=== PATIENT | male | born 1960 | race Caucasian/White ===

== ENCOUNTER 2019-10-08 10:28 | Outpatient (CLI) | payer BC, SELFPAY ==
--- NOTE | 2019-10-08 11:00 | ECG_ITS ---
Measurements Intervals [place] Rate: 75 P: 35 FL: 198 QRS: 49 QRSD: 97 T: 30 QT: 377 QTc: 422 SINUS RHYTHM No previous ECG available for comparison Electronically Signed On 10-08-2019 17:53:19 [employer] by Park Amado M.D. [email or web address]
[2019-10-08 11:19] LABS: Basophils # 0.1 10^3/uL (0.0-0.1); Basophils % 0.9 %; Eosinophils # 0.2 10^3/uL (0.0-0.8); Eosinophils % 3.7 %; Hematocrit 43.9 % (42.0-52.0); Hemoglobin 15.1 g/dL (11.7-16.6); Lymphocytes # 1.5 10^3/uL (0.8-4.8); Lymphocytes % 28.3 %; Mean Corpuscular HGB Conc 34.4 g/dL (30.0-36.0); Mean Corpuscular Hemoglobin 31.1 pg (28.0-34.0); Mean Corpuscular Volume 90.3 fL (80-94); Mean Platelet Volume 9.2 fL (7.4-10.4); Monocytes # 0.5 10^3/uL (0.2-0.9); Monocytes % 8.6 %; Neutrophils # 3.2 10^3/uL (1.8-7.7); Neutrophils % 58.1 %; Nucleated Red Blood Cells % 0 %; Platelet Count 297 10^3/cmm (130-400); Red Blood Count 4.86 10^6/uL (4.1-5.3); Red Cell Distribution Width 12.6 % (12.1-15.1); White Blood Count 5.5 10^3/uL (4.0-10.0)
[2019-10-08 11:32] LABS: Anion Gap 18.1 (5-19); Blood Urea Nitrogen 12 mg/dL (8-23); Calcium 10.2 mg/Dl (8.8-10.2); Carbon Dioxide 25 mmol/L (22-29); Chloride 102 mmol/L (98-107); Glomerular Filtration Rate 61.6 mL/min (90-130); Glucose 95 mg/dL (74-106); Potassium 4.1 mmol/L (3.5-5.1); Sodium 141 mmol/L (136-145)
== END 2019-10-08 10:29 | disposition home or self-care (01) ==
LOC: LAB 10:31
PROVIDERS: Family Provider Plastic Surgery; Visit Provider Podiatrist Foot & Ankle Surgery
DX: Z01.812 Encounter for preprocedural laboratory examination (principal); I10 Essential (primary) hypertension
CPT/HCPCS: 36415; 80048; 85025; 93005

== ENCOUNTER 2020-10-29 10:30 | Outpatient (CLI) | payer BC, SELFPAY ==
--- NOTE | 2020-10-29 10:47 | CT_ITS ---
WS: [id number] CT ABDOMEN AND PELVIS NONCONTRAST HISTORY: GROSS HEMATURIA TECHNIQUE: Imaging performed through the abdomen and pelvis. Coronal and sagittal reformats are submi tted. All CT scans at [facility] use at least one of these dose optimization techniques: automated exposure control; mA and/or kV adjustment per patient size (includes targeted exams where d ose is matched to clinical indication); or iterative reconstruction. DLP: 1071.67 mGycm COMPARISON: None available. Lower thorax: Lung bases are clear. Small hiatal hernia. Visualized heart is normal. Liver: Low-attenuation 1.2 cm lesion LEFT lobe of the liver is likely a cyst. No bile duct dilatation . Gallbladder: Contracted gallbladder with no adjacent inflammation. Pancreas: Normal size and attenuation. Normal pancreatic duct. No pancreatitis or mass. Spleen: Normal. Adrenal glands: Normal. No mass. Right kidney: Normal size kidney with no mass or hydronephrosis. Left kidney: Normal size kidney with no mass or hydronephrosis. Aorta: Mild atherosclerosis aorta. There is no aneurysm. Scattered calcified plaques extend into the common iliac arteries. No free fluid, intraperitoneal air or significant lymphadenopathy. GI tract: Normal appendix. Mild diffuse constipation. There are moderate amount of diverticula within the distal colon with no acute inflammation. Abdominal wall: Negative. No hernia. Pelvis: Well-distended urinary bladder. Mixed density in the urinary bladder. There is a lobulated so ft tissue mass filling a large portion of the bladder. Prostate gland is also slightly enlarged and d oes encroach into the bladder. There are central prostate calcifications. No adjacent adenopathy or f luid. Osseous structures: Unremarkable. CT/CT kidney stone 09554 IMPRESSION: 1. Abnormal urinary bladder. Mixed density within the urinary bladder is sligh tly lobulated. Differential includes bladder neoplasm and mixed density from he morrhage. Recommend further evaluation of the urinary bladder. Ultrasound evalu ation may help determine mass versus hemorrhage. Cystoscopy may also be necessa ry for further evaluation. 2. Prostate gland enlargement also encroaches into the urinary bladder. 3. Diverticulosis.
== END 2020-10-29 10:31 | disposition home or self-care (01) ==
LOC: RADWPI 10:35
PROVIDERS: PCP Family Medicine; Visit Provider Family Medicine
DX: R31.0 Gross hematuria; K57.90 Diverticulosis of intestine, part unspecified, without perforation or abscess without bleeding; N40.0 Benign prostatic hyperplasia without lower urinary tract symptoms
CPT/HCPCS: 74176

== ENCOUNTER → 2020-11-07 11:37 | Outpatient (BNVA) | payer BC, SELFPAY | PROVIDERS: PCP Family Medicine; Visit Provider Urology | DX: N40.0 Benign prostatic hyperplasia without lower urinary tract symptoms (principal); D49.4 Neoplasm of unspecified behavior of bladder; R31.0 Gross hematuria | CPT/HCPCS: 81003 ==

== ENCOUNTER → 2020-11-10 15:27 | Outpatient (BNVA) | payer BC, SELFPAY | PROVIDERS: PCP Family Medicine; Visit Provider Urology | DX: Z20.822 Contact with and (suspected) exposure to COVID-19 (principal); D49.4 Neoplasm of unspecified behavior of bladder | CPT/HCPCS: 87635 ==

== ENCOUNTER 2020-11-14 16:38 | Inpatient (IN) | payer BC, SELFPAY ==
[2020-11-14] VITALS (16 sets, daily range): BP systolic 88–154; BP diastolic 59–97; PULSE 69–95; RESP 16–18; TEMP 35.9–36.8; O2SAT 90–97
--- NOTE | 2020-11-14 10:29 | XR_ITS ---
WS: [id number] PA and lateral chest, 11/14/2020 Clinical Data: Bladder cancer, preop Comparison: None. Findings: No nodules, masses or effusions are seen. The heart is normal. The pulmonary vascularity is not increased. No pneumonia or pneumothorax seen. The aortic arch and descending aorta are mildly to rtuous. XR/XR chest 2V* 83845 Impression: Atherosclerosis.
[2020-11-14 11:16] LABS: Basophils # 0.1 10^3/uL (0.0-0.1); Basophils % 0.9 %; Eosinophils # 0.2 10^3/uL (0.0-0.8); Eosinophils % 2.6 %; Hematocrit 45.5 % (42.0-52.0); Hemoglobin 16.2 g/dL (11.7-16.6); Lymphocytes # 1.7 10^3/uL (0.8-4.8); Lymphocytes % 29.5 %; Mean Corpuscular HGB Conc 35.6 g/dL (30.0-36.0); Mean Corpuscular Hemoglobin 30.7 pg (28.0-34.0); Mean Corpuscular Volume 86.3 fL (80-94); Mean Platelet Volume 9.4 fL (7.4-10.4); Monocytes # 0.4 10^3/uL (0.2-0.9); Monocytes % 7.5 %; Neutrophils # 3.49 10^3/uL (1.8-7.7); Neutrophils % 59.3 %; Nucleated Red Blood Cells % 0 %; Platelet Count 333 10^3/cmm (130-400); Red Blood Count 5.27 10^6/uL (4.1-5.3); Red Cell Distribution Width 12.4 % (12.1-15.1); White Blood Count 5.9 10^3/uL (4.0-10.0)
[2020-11-14 11:34] LABS: Alanine Aminotransferase 22 U/L (0-41); Albumin Level 4.4 g/dL (3.5-5.2); Alkaline Phosphatase 64 IU/L (40-130); Blood Urea Nitrogen 21 mg/dL (8-23); Calcium 9.1 mg/dL (8.5-10.5); Carbon Dioxide 25 mmol/L (22-29); Chloride 104 mmol/L (98-107); Glomerular Filtration Rate 61.3 mL/min (90-130); Glucose 106 mg/dL (65-115); Osmolality Calculated 293 mOsm/kg (285-295); Sodium 140 mmol/L (136-145); Total Bilirubin 1.7 mg/dL (0.15-1.2); Total Protein 7.4 g/dL (6.6-8.7)
[2020-11-14 11:41] LABS: Anion Gap 15.1 (5-19); Aspartate Amino Transferase 20 U/L (0-40); Potassium 4.1 mmol/L (3.5-5.1)
--- NOTE | 2020-11-14 12:04 | P.HPUD_ITS ---
Surgery/Procedure H&P Update DATE OF PROCEDURE: November 14, 2020 DATE H&P PERFORMED: 11/07/20 H&P UPDATE INFORMATION: I have reviewed H&P completed within last 30 days, I have examined patient prior to procedure, No changes to prior documentation and H&P is in [facility] EMR on date indicated PREOP DIAGNOSIS: Bladder cancer PLANNED PROCEDURE: Operation Date: 11/14/20 12:00 Proposed Procedures p Cystoscopy 39195 N49.4(Not Applicable) - Devon Mathews MD s Transurethral Resection Bladder Tumor(Not Applicable) - Devon Mathews MD
--- NOTE | 2020-11-14 12:05 | P.ANESASSM_ITS ---
Pre-Anesthetic Assessment Pre-Anesthetic Assessment: Height/Weight: Height 1.75 m Weight 83.915 kg Temp Pulse Resp BP Pulse Ox 97.6 F 85 18 142/92 97 11/14/20 10:34 11/14/20 10:34 11/14/20 10:34 11/14/20 10:34 11/14/20 10:34 Preop Diagnosis: Bladder cancer Proposed Procedure: Operation Date: 11/14/20 12:00 Proposed Procedures p Cystoscopy 74729 N49.4(Not Applicable) - Devon Mathews MD s Transurethral Resection Bladder Tumor(Not Applicable) - Devon Mathews MD Was Beta Aly taken within 24 hours: N/A Social: Social History: No alcohol and No tobacco Exam: Pre-Anes Outpt Exam: alert, oriented x 3, clear to auscultation bila terally and regular rate & rhythm Airway: Submandibular: WNL Cervical ROM: WNL MP: 2 Dentition: Full History/ROS: No significant history except as noted CV/HEM: CV/HEM: HTN Anesthetic Plan: ASA status: 2 Anesthesia: General Risk of > 500 ml blood loss (7ml/kg in children): No PFSH Anesthesia PFSH: Medical History (Updated 11/07/20 @ 14:29 by Devon Mathews MD) Bladder tumor Diverticulosis Gross hematuria Surgical History (Updated 11/07/20 @ 14:29 by Devon Mathews MD) H/O release of tendon rt arm bicep Hx of foot surgery Family History (Updated 11/07/20 @ 11:50 by Nga Chaudhry LPN) Father , at age 64 Cancer Mother , at age 73 Stroke Social History (Updated 11/07/20 @ 11:50 by Nga Chaudhry LPN) Smoking and tobacco status: never smoked Alcohol intake: current Alcohol intake frequency: holidays/special occasions only Marital status: Current occupational status: employed 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 History of recent travel: No Data Anesthesia CBC & Chem 7: 11/14/20 11:00 11/14/20 11:00 Other Labs: Laboratory Results - last 48 hr 11/14/20 11/14/20 11:00 11:00 WBC 5.9 RBC 5.27 Hgb 16.2 Hct 45.5 MCV 86.3 MCH 30.7 MCHC 35.6 RDW 12.4 Plt Count 333 MPV 9.4 Neut % (Auto) 59.3 Lymph % (Auto) 29.5 [place] % (Auto) 7.5 Eos % (Auto) 2.6 Baso % (Auto) 0.9 Neut # (Auto) 3.49 Lymph # (Auto) 1.7 [place] # (Auto) 0.4 Eos # (Auto) 0.2 Baso # (Auto) 0.1 Nucleated RBC % (auto) 0 Nucleated RBCs # 0.0 Sodium 140 Potassium 4.1 Chloride 104 Carbon Dioxide 25 Anion Gap 15.1 BUN 21 Creatinine 1.2 GFR Calculation 61.3 L Glucose 106 Calculated Osmolality 293 Calcium 9.1 Total Bilirubin 1.7 H AST 20 ALT 22 Alkaline Phosphatase 64 Total Protein 7.4 Albumin 4.4 Globulin 3.0 Cardiac Studies: No Data to Display
[2020-11-14] MEDS: levofloxacin-dextrose 5 % 500 MG/100 ML PREMIX 100 MG IV (12:15)
[2020-11-14] MEDS: lidocaine 2% Urojet 20 mL (12:43)
--- NOTE | 2020-11-14 16:35 | P.OP_ITS ---
Operative Report Date of procedure: November 14, 2020 Pre-op Diagnosis: Bladder cancer Post-op diagnosis: same Procedure Done: Cystoscopy, transurethral section of bladder tumor large (initial stage resection) Pathology: Bladder tumor specimen Surgeon: Reid Anesthesia: General Estimated blood loss: Estimated 150 cc Urine output: Not measured Complications: Could not completely resect all bladder tumor in the bladder due to the large bulk, very vascular nature of the tumor, and extended time working on approximately half of the total volume resected. No direct complications otherwise. Findings: 3 distinct areas of large bladder tumor right lateral wall, right lateral anterior wall, lateral right lateral anterior wall involving partial of the dome, and in addition had multiple sheets of papillary tumor scattered throughout the bladder wall both right, posterior, and extending toward the dome. The largest of the 3 areas was resected. I think deeper sections are still indicated. Multiple of the sheets of papillary tumors were fulgurated. A portion of the right lateral anterior tumor was resected and fulgurated but still remains and the more right lateral dome area was not really addressed. Based on the size and time of surgery it was felt that the the prudent approach would be to resect what could be safely resected and then come back for completion next week after some healing and better hemostasis. Condition: stable Disposition: PACU Brief History: Yosi is a very pleasant 60-year-old white male recently diagnosed with large volume bladder cancer during work-up for gross hematuria. The initial impression was well differentiated tumor but very large bulk. He was having some obstructive voiding symptoms because of the tumor itself dropping into the prostatic fossa. Admitted for TURBT. Procedure: After routine preoperative evaluation examination and obtaining of informed consent he was taken to the operating suite on 11/14/2020 where general a nesthesia was administered without difficulty after appropriate timeout was performed, SCDs confirmed to be functioning, preoperative antibiotics administered, beta-callie protocol confirmed. Prepped and draped in usual sterile fashion in dorsolithotomy position paying careful attention to avoiding pressure points. 21 Gu[place]ian cystoscope with 30 degree lens was introduced into the urethral meatus and advanced into the bladder under videoscopy. Bladder was systematically examined. The findings described above were confirmed. The tumor was very friable even before resection. It appeared to be very closely involved or close to the right ureteral orifice. There were sheets of tumor extending along the lateral wall posterior floor even onto the left side and toward the dome. There appeared to be at least 3 distinct areas of tumor. The largest 1 bordering on the right posterior floor on to the lateral wall was addressed first. The urethra was calibrated with [place] sounds and was somewhat tight at 28 Guamanian. 2% lidocaine jelly was instilled into the urethra and then the 25 [place] continuous-flow resectoscope sheath with visual obturator in place was advanced into the bladder. The gyrus bipolar system was utilized for resection. Resection was begun with the super loop. This was started on the more proximal aspect of the tumor on the right posterior lateral wall. The tumor was very vascular. Cautery was performed as needed and intermittently exchanged with the button probe for vaporization and fulguration. Approximately half of the tumor was resected but the surfaces were very friable and for that reason the button probe was then utilized for vaporization current to try to obliterate as much of the tumor as easily could well away from the wall itself. This allowed much better hemostasis. Resection was taken down to the base. It was still quite friable at that area. At this point it became obvious that the time it would take to completely resect the rest of the tumor would be excessive in 1 setting and dangerous from a bleeding perspective and for that reason attention was then directed with the button probe to vaporize and fulgurate the papillary sheets of tumor. The more anterior tumor on the right lateral was also fulgurated as well for hemostasis control but not completely resected. No attention was directed to the tumor more near the dome in order to avoid creating more bleeding. After more than 3 and half hours of resection the procedure was completed after hemostasis was obtained. The bladder was drained with a 22 [place]ian three-way F oley catheter with 30 cc placed in the balloon. Function of the catheter was good. CBI was initiated because the efflux was somewhat bloody. This provided significant clearing but it was still somewhat pink and the CBI was continued at a brisk pace. The bleeding did not increase and the procedure was completed. He tolerated procedure well without complications and was awakened in the operating room and returned to the recovery room in stable condition. I reviewed the findings with his garry Villegas. Discussed the need for further resection. Also expressed my concern that this may in fact be muscle invasive based on the wide-based nature and somewhat fixed characteristics PLANS: 1. Admit to inpatient status with anticipation of at least 2 midnight stays for bladder management post extensive TURBT 2. Plan for repeat TURBT later next week after some healing. 3. We will check his pathology report first to confirm no muscle involvement at least on the initial resection before repeat resection.
--- NOTE | 2020-11-14 16:46 | SUR.PHASEI ---
PT AAWKE ALERT ON RA VSS SATS 96% PT HAS CBI NS INFUSING AT MOD RATE URINE LT PINK TO BEAL BAG 1400 EMPTIED NO CLOTS NOTED
--- NOTE | 2020-11-14 17:12 | ANE.PACU2 ---
Inpatient post-anesthesia follow up: Airway intact: Yes Vital signs: Temperature 98 F Pulse Rate 74 Respiratory Rate 18 Blood Pressure 125/76 Pulse Oximetry 96 Oxygen Delivery Me thod Room Air Oxygen Flow Rate 8 Fraction of Inspir ed Oxygen Hydration adequate: Yes Nausea and vomiting: No Pain level: 2 Mental status: Baseline
[2020-11-14] MEDS: dextrose 5%-sod chloride 0.9% 1,000 ML 100 ML IV (17:33)
[2020-11-14] MEDS: docusate sodium 100 mg Capsule PO (17:33)
[2020-11-14] MEDS: HYDROcodone-acetaminophen 5-325 mg Tablet 1 TAB PO ×2 (17:33→23:24)
--- NOTE | 2020-11-14 18:48 | PC.NURSE ---
SHIFT SUMMARY Pt received from surgery today, minimal abdominal discomfort. PRN hydrocodone given per order. There was approximately 3300mL irrigated into bladder this shift, 3600mL total in output;equalling 300 urine output. Color of urine at this time is pink, no clots noted. Patient is resting well in bed at this time, CBI dripping, no abdominal distention noted, manual irrigation not needed. call light within reach
[2020-11-14 19:00] LABS: Basophils % 0.3 %; Eosinophils % 0.2 %; Hematocrit 43.6 % (42.0-52.0); Hemoglobin 15.1 g/dL (11.7-16.6); Lymphocytes # 0.7 10^3/uL (0.8-4.8); Mean Corpuscular HGB Conc 34.6 g/dL (30.0-36.0); Mean Corpuscular Hemoglobin 30.9 pg (28.0-34.0); Mean Corpuscular Volume 89.3 fL (80-94); Mean Platelet Volume 9.2 fL (7.4-10.4); Monocytes # 0.1 10^3/uL (0.2-0.9); Monocytes % 1.1 %; Neutrophils # 8.26 10^3/uL (1.8-7.7); Nucleated Red Blood Cells % 0 %; Platelet Count 258 10^3/cmm (130-400); Red Blood Count 4.88 10^6/uL (4.1-5.3); Red Cell Distribution Width 12.7 % (12.1-15.1); White Blood Count 9.2 10^3/uL (4.0-10.0)
[2020-11-15] VITALS (8 sets, daily range): BP systolic 114–122; BP diastolic 75–81; PULSE 80–105; RESP 18–20; TEMP 36.7–37.9; O2SAT 93–96
[2020-11-15] MEDS: dextrose 5%-sod chloride 0.9% 1,000 ML 100 ML IV ×2 (03:48→13:23)
[2020-11-15 05:51] LABS: Hematocrit 41.1 % (42.0-52.0); Hemoglobin 14.2 g/dL (11.7-16.6)
[2020-11-15 06:14] LABS: Anion Gap 13.2 (5-19); Blood Urea Nitrogen 17 mg/dL (8-23); Carbon Dioxide 26 mmol/L (22-29); Chloride 103 mmol/L (98-107); Glomerular Filtration Rate 85.5 mL/min (90-130); Glucose 114 mg/dL (65-115); Osmolality Calculated 288 mOsm/kg (285-295); Potassium 4.2 mmol/L (3.5-5.1); Sodium 138 mmol/L (136-145)
[2020-11-15] MEDS: hydroCHLOROthiazide 25 mg Tablet 12.5 MG PO (09:37)
[2020-11-15] MEDS: atorvastatin 40 mg Tablet 20 MG PO (09:37)
[2020-11-15] MEDS: docusate sodium 100 mg Capsule PO ×2 (09:37→18:02)
--- NOTE | 2020-11-15 09:39 | P.PN_ITS ---
Subjective Subjective: Interval history: Urology follow-up: Postop day #1 TURBT large with partial resection. Still requires continuous bladder irrigation although the rate has been able to be turned down substantially without increasing bleeding. Lab reviewed. Stable hemoglobin. No other complaints. Reviewed CBI issues with nursing staff. Vitals/I&O/Wt Last Vital Signs Temp 98.9 F 11/15/20 07:36 Pulse 93 11/15/20 07:36 Resp 18 11/15/20 07:36 BP 122/80 11/15/20 07:36 Pulse Ox 95 11/15/20 07:36 11/14/20 11/15/20 11/15/20 22:59 06:59 14:59 Intake Total 200 / 300 1000 / 1300 Output Total 2465 / 2465 350 / 2815 Balance -2265 / -2165 650 / -1515 Weight last 48 hrs Weight 185 lb Physical Exam Const: COMMON NORMALS: no acute distress, alert and well nourished GENERAL APPEARANCE: well kempt and well developed ORIENTATION/CONSCIOUSNESS: not confused HENMT: COMMON NORMALS: normocephalic and atraumatic HEAD & SCALP: normocephalic and atraumatic Eye: COMMON NORMALS: conjunctivae normal and no scleral icterus CONJ UNCTIVA: Yes conjunctivae normal Neck/C-Spine: COMMON NORMALS: full ROM GENERAL: Yes normal visual inspection Resp: COMMON NORMALS: normal respiratory effort EFFORT & INSPECTION: No labored and No Actively coughing Neuro: COMMON NORMALS: no focal motor deficits SENSORIUM/ORIENTATION: Yes alert Psych: COMMON NORMALS: mental status grossly normal APPEARANCE: Yes grossly normal and Yes well kempt ATTITUDE: Yes calm and Yes engaged Skin: COMMON NORMALS: no rashes or lesions noted and no jaundice GENERAL SKIN EXAM: no rashes or lesions noted Urinary Catheter Management^: 3-way Urethral CBI: Cath Placed During This Visit: yes Urinary Catheter Date of Insertion: 11/14/20 Urinary Catheter Time of Insertion: 15:56 Data : 11/15/20 05:43 11/15/20 05:43 A&P Assessment and plan (1) Bladder tumor: Huge volume of bladder tumor only partially resected after 3-1/2 hours plus of procedure yesterday. Plan was to convert to a staged procedure based on that volume and for safety reasons. Doing well this morning Able to wean CBI somewhat. We will continue on inpatient status for now and assess for possible discharge tomorrow if in fact continues to improve from a bleeding perspective. Advance diet. Prevent constipation. We spent about 45 minutes this morning reviewing big picture as well as detailed issues related to his diagnosis. Status: Acute Attestations Medical Necessity Statement*: Requiring continuous bladder irrigation. Coding Level of Care Code Acute Special Education Bus Driver for Navi Fwd Exam Comprehensive Diagnoses Bladder tumor D49.4 Time Spent (min) 45 Comment 45 to 50 minutes unit time
[2020-11-15] MEDS: levofloxacin-dextrose 5 % 500 MG/100 ML PREMIX 100 MG IV (13:23)
[2020-11-15] MEDS: phenol oral Spray 177 mL 3 SPRAY MUCOUS MEM (15:23)
[2020-11-15] MEDS: acetaminophen 500 mg Tablet PO (16:23)
--- NOTE | 2020-11-15 18:36 | PC.NURSE ---
shift summary pt has has 6650 output from martin bag with 6000 input from CBI. urine has been a bright pink and clear, with no smell. pt has not had any pain or discomfort at this time. no BM at this time. pt has been up to chair for meals, for dinner he did not have much of an appetite.
--- NOTE | 2020-11-15 18:44 | PC.NURSE ---
pt was complaining of anxiousness, Dr. Mathews notified ativan 0.5 PO PRN Q8 hours was ordered. pt has requested it for a later time due to not wanting to fall asleep before left with worry it will make him too sleepy.
--- NOTE | 2020-11-15 18:47 | PC.NURSE ---
notified due to low grade fever of 100.2 at approximately 1630, physician ordered CBC, blood cultures, and tylenol 500 PRN q 6 hours.
[2020-11-15 19:32] LABS: Basophils % 0.4 %; Eosinophils # 0.1 10^3/uL (0.0-0.8); Eosinophils % 0.7 %; Hematocrit 38.1 % (42.0-52.0); Hemoglobin 13.3 g/dL (11.7-16.6); Lymphocytes # 0.9 10^3/uL (0.8-4.8); Mean Corpuscular HGB Conc 34.9 g/dL (30.0-36.0); Mean Corpuscular Volume 88.8 fL (80-94); Mean Platelet Volume 9.9 fL (7.4-10.4); Monocytes # 0.4 10^3/uL (0.2-0.9); Monocytes % 5.4 %; Neutrophils # 6.22 10^3/uL (1.8-7.7); Neutrophils % 81.2 %; Nucleated Red Blood Cells % 0 %; Platelet Count 222 10^3/cmm (130-400); Red Blood Count 4.29 10^6/uL (4.1-5.3); Red Cell Distribution Width 12.8 % (12.1-15.1); White Blood Count 7.7 10^3/uL (4.0-10.0)
[2020-11-15] MEDS: LORazepam 0.5 mg Tablet PO (21:43)
[2020-11-16 00:44] VITALS: BP 117/77; PULSE 83; RESP 17; TEMP 36.7; O2SAT 96
[2020-11-16] MEDS: dextrose 5%-sod chloride 0.9% 1,000 ML 100 ML IV (00:50)
[2020-11-16 04:18] VITALS: BP 124/80; PULSE 82; RESP 16; TEMP 36.8; O2SAT 96
[2020-11-16 07:53] VITALS: BP 120/80; PULSE 79; RESP 18; TEMP 37.2; O2SAT 97
[2020-11-16] MEDS: docusate sodium 100 mg Capsule PO (08:14)
[2020-11-16] MEDS: hydroCHLOROthiazide 25 mg Tablet 12.5 MG PO (08:14)
[2020-11-16] MEDS: atorvastatin 40 mg Tablet 20 MG PO (08:14)
--- NOTE | 2020-11-16 10:26 | P.DS_ITS ---
Discharge Providers Date of Admission: 11/14/20 16:38 Date of Discharge: November 16, 2020 Attending Provider at Admission: Devon Mathews MD Attending Provider at Discharge: Devon Mathews MD Primary Care Provider: Denzel Coombs DO Diagnoses at Discharge Discharge Diagnosis (1) Bladder tumor: Status: Acute Reason for Visit Reason for Visit: cytoscopy Hospital Course Hospital Course He was admitted on the day of the procedure. Intraoperative findings included 3 distinctly large areas of tumor with multiple sheets of papillary tumor on the bladder mucosa in addition to this. The tumor was not able to be completely resected in the 3-1/2 hours plus time spent. He was maintained on continuous bladder irrigation postoperatively which was stopped on postoperative day #2 and his urine remained clear enough for him to be discharged with Tipton catheter in place and forcing fluids to keep a brisk urine output. We reviewed follow-up plans to complete the resection on 11/20/2020. Should have pathology report available before then and hold on further resection if muscle is clearly identified in the resection and involving the tumor. Physical Exam Const: COMMON NORMALS: no acute distress, alert and well nourished GENERAL APPEARANCE: well kempt and well developed ORIENTATION/CONSCIOUSNESS: not confused HENMT: COMMON NORMALS: normocephalic and atraumatic HEAD & SCALP: normocephalic and atraumatic Eye: COMMON NORMALS: conjunctivae normal and no scleral icterus CONJUNCTIVA: Yes conjunctivae normal Neck/C-Spine: COMMON NORMALS: full ROM GENERAL: Yes normal visual inspect ion Resp: COMMON NORMALS: normal respiratory effort EFFORT & INSPECTION: No labored and No Actively coughing Neuro: COMMON NORMALS: no focal motor deficits SENSORIUM/ORIENTATION: Yes alert Psych: COMMON NORMALS: mental status grossly normal APPEARANCE: Yes grossly normal and Yes well kempt ATTITUDE: Yes calm and Yes engaged Skin: COMMON NORMALS: no rashes or lesions noted and no jaundice GENERAL SKIN EXAM: no rashes or lesions noted Urinary Catheter Management^: 3-way Urethral CBI: Cath Placed During This Visit: yes Urinary Catheter Date of Insertion: 11/14/20 Urinary Catheter Time of Insertion: 15:56 Discharge Data Data Completed and Pending: Completed Studies During Hospitalization Category Date Time Status XR chest 2V* 7104 6 Routine Exams 11/14/20 10:29 Completed Pending at discharge Category Date Time Status Blood Culture [facility] 11/15/20 19:02 Results Coronavirus Test [facility] 11/16/20 10:24 Ordered Pathology: Surgic al [PTH] Routine Pth 11/14/20 16:18 Ordered Labs from last 24 hours 11/15/20 19:00 WBC 7.7 RBC 4.29 Hgb 13.3 Hct 38.1 L MCV 88.8 MCH 31.0 MCHC 34.9 RDW 12.8 Plt Count 222 MPV 9.9 Neut % (Auto) 81.2 Lymph % (Auto) 12.0 [place] % (Auto) 5.4 Eos % (Auto) 0.7 Baso % (Auto) 0.4 Neut # (Auto) 6.22 Lymph # (Auto) 0.9 [place] # (Auto) 0.4 Eos # (Auto) 0.1 Baso # (Auto) 0.0 Nucleated RBC % (a uto) 0 Nucleated RBCs # 0.0 Vitals: Last Vital Signs Temp 99.0 F 11/16/20 07:53 Pulse 79 11/16/20 07:53 Resp 18 11/16/20 07:53 BP 120/80 11/16/20 07:53 Pulse Ox 97 11/16/20 07:53 Discharge Plan Discharge Patient Disposition: Home Condition: Stable Prescriptions: New hydrocodone-acetaminophen [[place]] 5-325 mg tablet 1 tab PO Q8H PRN (Reason: pain) Qty: 10 RF: 0 levofloxacin 500 mg tablet 500 mg PO DAILY 7 Days RF: 1 lorazepam [Ativan] 0.5 mg tablet 0.5 mg PO TID PRN (Reason: anxiety) Qty: 4 RF: 0 Continued Probiotic 3 billion cell capsule 3,000 mmu cells PO DAILY RF: 0 hydrochlorothiazide 12.5 mg capsule 12.5 mg PO DAILY RF: 0 coenzyme Q10 [Co Q-10] 200 mg capsule 200 mg PO DAILY RF: 0 atorvastatin 20 mg tablet 20 mg PO DAILY RF: 0 organ concentrates 140 mg capsule 140 mg PO DAILY RF: 0 Centrum Silver 0.4-300-250 mg-mcg-mcg tablet 1 tab PO DAILY RF: 0 Discontinued omega-3 fatty acids [[place]-3] 1,000 mg capsule 1,000 mg PO DAILY RF: 0 Discharge Orders: Discharge Order (Routine); Ordered 11/16/20 Ordered By: Devon Mathews Referrals: Devon Mathews MD [Physician] - (Surgery date 11/20/20) Discharge Diet: Usual diet Discharge Activity: Limit activity as instructed Activity Restrictions/Additional Instructions: 1. We will plan for repeat resection on 11/20/2020. 2. We need to communicate Tuesday or Tuesday to formalize these plans. 3. Please call [phone] if you have not heard from my office by Tuesday. 4. You can always reach me through the hospital dish machine operator or on my cell phone [phone] as needed. 5. Force fluids to keep your urine clear. Avoid any strenuous activity. Aggressively treat and prevent constipation. Discharge Attestations Time Spent in Discharge Care*: greater than 30 min Specific Discharge Activities: educating patient, documenting/other paperwork and evaluating patient/reviewing data Quality Metrics Clinical Quality Measures During this hospital stay, did patient experience: None Coding Level of Care Code Acute Certified Ophthalmic Technician for [employer] Fwd Diagnoses Bladder tumor D49.4
[2020-11-16] MEDS: magnesium hydroxide 30 mL UDC PO (11:10)
[2020-11-16 11:43] VITALS: BP 128/84; PULSE 83; RESP 18; TEMP 37; O2SAT 97
[2020-11-16] MEDS: levofloxacin-dextrose 5 % 500 MG/100 ML PREMIX 100 MG IV (13:34)
--- NOTE | 2020-11-16 17:15 | PC.NURSE ---
discharge given to pt, went over instructions and education on how to change out leg bag to bigger bag at night. pt was educated on color of urine and when to increase fluids along with changes in urine that a dr will need to be notified with. pt stated he understood education and this nurse informed pt and pt family on how to call incase of questions. pt was walked out to front entrance.
[2020-11-16 17:21] VITALS: BP 128/84; PULSE 83; RESP 18; TEMP 37; O2SAT 97
[2020-11-19 14:12] LABS: Coronavirus Test Green County Not Detected
== END 2020-11-16 16:15 | disposition home or self-care (01) | DRG 670 ==
LOC: MEDSURG 16:40
PROVIDERS: Admitting Provider Urology; PCP Family Medicine; Visit Provider Urology
PROC: 0TJB8ZZ Inspection of Bladder, Via Natural or Artificial Opening Endoscopic (ICD-10-PCS; CPT 52000; principal; 2020-11-14 12:00)
PROC: 0TBB8ZZ Excision of Bladder, Via Natural or Artificial Opening Endoscopic (ICD-10-PCS; 2020-11-14 12:00)
DX: D49.4 Neoplasm of unspecified behavior of bladder (principal); K57.90 Diverticulosis of intestine, part unspecified, without perforation or abscess without bleeding; R31.0 Gross hematuria
CPT/HCPCS: 36415; 71046; 80048; 80053; 85014; 85018; 85025; 87040; 87635; 88305; J1100; J1170; J1956; J2405; J2704; J3010; J3490

== ENCOUNTER 2020-11-19 12:41 | Outpatient (CLI) | payer BC, SELFPAY ==
--- NOTE | 2020-11-19 12:00 | CT_ITS ---
WS: [id number] CT ABDOMEN AND PELVIS WITH AND WITHOUT CONTRAST HISTORY: BLADDER CANCER TECHNIQUE: Unenhanced 5 mm axial imaging first performed through the abdomen. Post contrast imaging t hrough the abdomen and pelvis. Oral contrast has been provided. Sagittal and coronal reformats are s ubmitted. All CT scans at [facility] use at least one of these dose optimization techniqu es: automated exposure control; mA and/or kV adjustment per patient size (includes targeted exams whe re dose is matched to clinical indication); or iterative reconstruction. CONTRAST: Omnipaque 300; 95 mL IV. DLP: 2123.55 mGy.cm COMPARISON: Noncontrast CT 10/29/2016 Lung bases are clear. Mild diffuse distal esophageal wall thickening. Normal size liver. No bile duct dilatation. 1.5 cm cyst in the LEFT lobe. Normal portal vein. Spleen and pancreas are normal. No adrenal mass. Negative gallbladder. No GI tract obstruction. The appendix is normal. There are a few diverticula without diverticulitis. RIGHT kidney: No renal mass or obstruction. No calcifications. LEFT kidney: No renal mass, obstruction or calcification. Abdominal aorta: Mild atherosclerotic plaque with no aneurysm. No adenopathy, free air or free fluid. [place] catheter present in a mildly distended urinary bladder. There is an enhancing soft tissue mass filling a moderate portion of the bladder. Largest component of the mass is to the RIGHT measuring 3. 0 x 3.5 cm. There has been a moderate reduction size of the mass since the prior unenhanced study. CT/CT abdomen pelvis wo/w [address] IMPRESSION: 1. Enhancing urinary bladder mass predominantly to the RIGHT of midline. The l argest solid component measures 3.0 x 3.5 cm. As compared to the noncontrast ex amination from 10/29/2020 mass appears slightly decreased in size. 2. No renal mass or uroepithelial lesions. 3. Mild circumferential thickening of the distal esophagus. 4. No adenopathy.
[2020-11-19] MEDS: iohexol 300 mg/mL 100 mL Btl IV (13:12)
== END 2020-11-19 12:42 | disposition home or self-care (01) ==
LOC: RAD 12:43
PROVIDERS: PCP Family Medicine; Visit Provider Urology
DX: C67.9 Malignant neoplasm of bladder, unspecified (principal)
CPT/HCPCS: 74178

== ENCOUNTER 2020-11-20 11:52 | Outpatient (CLI) | payer BC, SELFPAY ==
--- NOTE | 2020-11-21 14:11 | ONC CON_ITS ---
Dr. Figueroa New Patient Note Patient: Juan Carlos Cuba Unit #: [id number]: 1960 Dicatated By: Ben Figueroa M.D.Date of Visit: Nov 20, 2020 Onc MED New Patient/Consult Referring Physician: Dr. Devon Mathews M.D. Chief Complaint: Bladder cancer. 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 He had been having episodes of gross hematuria since March 2020. He also complained of having bladder spasms with voiding. The symptoms persisted despite antibiotic therapy. CT of the abdomen/pelvis on 10/29/2020 showed a lobulated soft tissue mass filling a large portion of the bladder consistent with bladder neoplasm or mixed density from hemorrhage. The prostate was noted to be slightly enlarged. There was no associated adenopathy. A 1.2 cm low-attenuation lesion within the left lobe of the liver was thought to be likely a cyst. His outpatient cystoscopy on 11/07/2020 showed a huge well differentiated appearing transitional cell cancer involving the right side of the bladder extending from the dome to the bladder neck. Multiple other smaller papillary tumors were involving the left bladder wall and dome. On 11/14/2020 he underwent cystoscopy with TURBT. He was noted to have 3 distinct areas of large bladder tumor involving the right lateral wall, right lateral anterior wall, and lateral right lateral anterior wall with partial involvement of the dome. There were additional multiple sheets of papillary tumor scattered throughout the bladder wall. Due to the large bulk of tumor, the procedure was planned as an initial stage resection. Approximately half of the tumor was able to be resected. Pathology showed high-grade papillary urothelial carcinoma with lamina propria invasion. Detrussor muscle also was noted to be involved with high-grade papillary urothelial carcinoma. With that finding, he has been recommended to see Dr. Ashish Bose at the [facility] in regard to further surgery, and he has been advised to proceed with neoadjuvant chemotherapy. He has been feeling good generally. He has had limited activity following the surgery last week, but his energy generally has been good and he had normal activity prior to the surgery. His ECOG score is 1. He has good appetite. Had some slight fever in the hospital, none since then. He has not had night sweating. He has no shortness of breath, cough, or chest pain. He has no GI complaints other than occasional heartburn. He has had an indwelling Tipton catheter since the surgery, that was just removed this morning. He has been having some pain in the left shoulder, attributable to rotator cuff repair. He has no other joint or bone pain. He does not complain of headache or dizziness. He has no focal neurologic symptoms. Past Medical History: His medical history includes borderline hypertension and hyperlipidemia. He has a history of diverticulitis. Past Surgical History: He underwent cystoscopy/TURBT on 11/14/2020. His other surgical/procedural history includes biceps tendon repair on the right, foot surgery, LASEK eye surgery x 3, surgery for cryptorchidism in 1962 and in 1963, and colonoscopy in 2018. Medications: Atorvastatin Calcium (20 mg) Tablet Oral daily, hydroCHLOROthiazide (12.5 mg) Tablet Oral daily, Multi-Vitamin Tablet Oral daily Allergies: No Known Allergies. Social History: Mr. Cuba is . 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 He is a non-smoker, and he has not used other tobacco products. He has had only rare alcohol use. Family History: Father of lung cancer at age 64. Mother with heart attack at age 73. A sister with choking at age 73. Review Of Symptoms: Constitutional - He has pretty good energy. His activity has been limited somewhat since his surgery. He has good appetite. He had a slight fever in the hospital, but that has resolved. He has not had night sweating. ECOG score is 1, Eyes - No change in vision, ENMT - He has had gradual decline in hearing. He has had some tinnitus. No sinus congestion/drainage. No mouth sores. He had a slight sore throat after surgery. No difficulty swallowing, Hematologic/Lymphatic - No abnormal bruising, Respiratory - No shortness of breath. No cough. No pleuritic pain or hemoptysis, Cardiovascular - No angina pain. No palpitations, Gastrointestinal - No nausea or vomiting. He occasionally has heartburn. No diarrhea or constipation. No blood in the stool or black stools, Genitourinary (M) - He has had hematuria and he has been having bladder spasms with voiding. He had an indwelling catheter following his surgery, and it was just removed this morning, Musculoskeletal - He has had some pain in the left shoulder due to suspected rotator cuff tear, Integumentary - No skin rash or other skin changes, Neurologic - No headache or dizziness. No numbness or tingling. No other focal neurologic symptoms, Psychiatric - No anxiety or depression. No insomnia. Vital Signs: Performed on Nov 20, 2020 12:54: 0, 2, 27.41, 2.00 sq.m, 69 in, 97 %, 100 /min, 16 /min, 128/70 mm(hg), 99.6 F (HIGH), and 185.6 lbs (HIGH). Physical Examination: Constitutional - He appears to be in good general health, Eyes - Sclerae nonicteric. Conjunctivae clear, ENMT - No lesions noted in the oral cavity, Neck - No mass or thyromegaly, Hematologic/Lymphatic - No cervical, clavicular, or axillary adenopathy, Respiratory - Lungs are clear with good air movement bilaterally, Cardiovascular - Heart rhythm is regular. There is a I/ systolic murmur. There is no gallop or rub noted, Abdomen - Soft and non-tender. Liver and spleen are not enlarged. There is no abdominal mass or ascites noted and there is no inguinal adenopathy, Back/Spine - No spine or CVA tenderness noted, Extremities - No edema. Pedal pulses are palpable bilaterally, Integumentary - No rashes. No suspicious skin lesions noted, Neurologic - No focal neurologic deficits noted. Problem List: 1. High-grade papillary urothelial carcinoma involving the bladder with pathologic evidence of muscle invasion. By clinical evaluation his disease is stage II (T2, N0, M0). 2. Borderline hypertension. 3. Hyperlipidemia. Problems Addressed with this Encounter and Plan: High-grade papillary urothelial carcinoma involving the bladder with pathologic evidence of muscle invasion. By clinical evaluation his disease is stage II (T2, N0, M0). He was noted to have bulky disease within the bladder, and he underwent partial resection with TURBT on 11/14/2020. In the setting of bulky, muscle invasive disease he has been recommended to see Dr. Ashish Bose at [facility] for further surgery, and he has been advised to proceed with neoadjuvant chemotherapy. The recommended chemotherapy will be the dose dense MVAC regimen administered every 2 weeks for a total of 4 cycles of treatment. I reviewed anticipated side effects with the chemotherapy which may include nausea/vomiting, alopecia, fatigue, and low blood counts, among others. He will need to undergo placement of Port-A-Cath venous access device for the chemotherapy, this will be arranged with Dr. Parikh. He will need a baseline echocardiogram. He is due to receive his second Covid-19 vaccination on Tuesday of next week, and I anticipate starting his chemotherapy on Tuesday. Signed By: Ben Figueroa M.D. <<Signature on File>>
== END 2020-11-20 11:53 | disposition home or self-care (01) ==
PROVIDERS: PCP Family Medicine; Visit Provider Internal Medicine Medical Oncology
DX: C67.8 Malignant neoplasm of overlapping sites of bladder (principal); I10 Essential (primary) hypertension; E78.5 Hyperlipidemia, unspecified; Z90.6 Acquired absence of other parts of urinary tract
CPT/HCPCS: 99205

== ENCOUNTER → 2020-11-21 12:09 | Outpatient (BNVA) | payer BC, SELFPAY | PROVIDERS: PCP Family Medicine; Visit Provider Surgery | DX: Z20.822 Contact with and (suspected) exposure to COVID-19 (principal); C67.8 Malignant neoplasm of overlapping sites of bladder | CPT/HCPCS: 87635 ==

== ENCOUNTER 2020-11-24 10:19 | Day surgery (SDC) | payer BC, SELFPAY ==
[2020-11-21 14:55] VITALS: BMI 27.3
[2020-11-24 10:49] VITALS: BP 139/88; PULSE 90; RESP 18; TEMP 36.6; O2SAT 98
--- NOTE | 2020-11-24 11:13 | ANES.PREANE2 ---
Pre-Anesthetic Assessment Pre-Anesthetic Assessment: Height/Weight: Height 1.75 m Weight 83.915 kg Temp Pulse Resp BP Pulse Ox 97.8 F 90 18 139/88 98 11/24/20 10:49 11/24/20 10:49 11/24/20 10:49 11/24/20 10:49 11/24/20 10:49 Preop Diagnosis: Bladder cancer Proposed Procedure: Operation Date: 11/24/20 12:00 Proposed Procedures p Portacath Placement 11878 C67.8(Not Applicable) - Victoriano Parikh MD Was Beta Aly taken within 24 hours: N/A Last intake: Intake Last Liquid Date 11/24/20 Last Liquid Time 16:00 Last Solid Date 11/23/20 Last Solid Time 18:00 Social: Social History: No alcohol and No tobacco Exam: Pre-Anes Outpt Exam: alert, oriented x 3, clear to auscultation bilaterally and regular rate & rhythm Airway: Submandibular: WNL Cervical ROM: WNL MP: 2 Dentition: Full CV/HEM: CV/HEM: HTN Anesthetic Plan: ASA status: 2 Anesthesia: MAC Risk of > 500 ml blood loss (7ml/kg in children): No PFSH Anesthesia PFSH: Medical History Bladder tumor Diverticulosis Gross hematuria Surgical History H/O release of tendon rt arm bicep Hx of foot surgery Family History Father , at age 64 Cancer Mother , at age 73 Stroke Social History Smoking and tobacco status: never smoked Alcohol intake: current Alcohol intake frequency: holidays/special occasions only Marital status: Current occupational status: employed 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
[2020-11-24] MEDS: sodium chloride 0.9% 1,000 ML 30 ML IV (11:25)
--- NOTE | 2020-11-24 11:52 | SC_ITS ---
WS: [id number] Exam: C-arm FL for CVA [id number] Date/Time of Exam: 11/24/2020 11:52 AM Reason For Exam: intra-op Single AP C-arm image of the central and left chest submitted for evaluation. A left subclavian port has been placed. The tip of the catheter appears to end at the expected region of the lower one third of the SVC. No obvious complication noted from this single image presented.
--- NOTE | 2020-11-24 12:34 | W.PM.OPSUD ---
Surgery/Procedure H&P Update DATE OF PROCEDURE: November 24, 2020 DATE H&P PERFORMED: 11/21/20 H&P UPDATE INFORMATION: I have reviewed H&P completed within last 30 days, I have examined patient prior to procedure and No changes to prior documentation PREOP DIAGNOSIS: Bladder cancer PLANNED PROCEDURE: Operation Date: 11/24/20 12:00 Proposed Procedures p Portacath Placement 64975 C67.8(Not Applicable) - Victoriano Parikh MD
[2020-11-24] MEDS: heparin, porcine 1,000 unit/mL INJ 10 mL 6000 UNIT XX (13:06)
[2020-11-24] MEDS: lidocaine 1% INJ 20 mL INJECTION (13:30)
--- NOTE | 2020-11-24 13:35 | SCC_ITS ---
Procedure Done: Placement of PowerPort in the left subclavian vein Fluoroscopic guidance and interpretation for placement of catheter Pathology: none sent 105.2 seconds of fluoroscopic guidance, for a cumulative dose of 16.75 mGy, was provided to Dr. Parikh - by the radiology department. C-arm images of the chest were saved for the patient's permanent record. PARESHD
--- NOTE | 2020-11-24 13:41 | P.OP_ITS ---
Operative Report Date of procedure: November 24, 2020 Pre-op Diagnosis: Bladder cancer Post-op diagnosis: same Procedure Done: Placement of PowerPort in the left subclavian vein Fluoroscopic guidance and interpretation for placement of catheter Pathology: none sent Surgeon: Victoriano Parikh Anesthesia: MAC Condition: stable Disposition: same day Procedure: The patient was taken to the Operating Room and the chest and neck bilaterally were prepped and draped in a sterile manner after the antibiotic had been administered and shoulder rolls had been placed. A total of 10 mL of 1% lidocaine with 0.5% Marcaine was infiltrated under the clavicle on the left side at the site of the planned entry into the subclavian vein. An introducer needle was then used to access the subclavian vein under the clavicle and after withdrawing blood syringe was removed and a guidewire passed under fluoroscopy into the superior vena cava. The site of the planned port was then marked on the chest and a 15 blade was used to make a 3 cm skin incision this was extended into the subcutaneous tissue using electrocautery and a subcutaneous pocket over the pectoralis fascia was created 2-0 Vicryl suture was used to suture the port to the pectoral fascia in the pocket on 3 sides. The catheter, after having been flushed with hep saline, was attached to the tunneler and a tunnel created between the port site and the subclavian vein entry site. Under fluoroscopy the dilator sheath was passed over the guidewire into the proximal superior vena cava. The inner dilator was removed and the sheath left behind and~ the catheter was introduced through the peel-away sheath with the tip in the superior vena cava. The peel-away sheath was removed. The proximal end of the catheter was cut to the right size and was attached to the port. Using a Mckeon needle the port was accessed, it flushed but did not draw blood easily and fluoroscopy showed kinking of the catheter at the site of entry into the subclavian vein. The catheter was cut at its attachment from the PowerPort and proximal end was pulled through the skin stab wound. The existing port was removed after the sutures were cut and 2-0 Vicryl suture was used to suture the port to the pectoral fascia in the pocket on 3 sides. The catheter, after having been flushed with hep saline, was attached to the tunneler and a tunnel created between the port site and the subclavian vein entry site. Under fluoroscopy a guidewire was passed into the existing catheter in the subclavian vein and the catheter was removed and a dilator sheath was passed, guidewire removed and the inner dilator was removed. The catheter was introduced and tip positioned in the distal superior vena cava. The proximal end of the catheter was attached to the port. A final 5cc of heparin was used to flush the PowerPort. The subcutaneous tissue was approximated using interrupted 3-0 Vicryl sutures and the skin at the introducer site and the port site was closed using subcuticular running 4-0 Monocryl sutures. Surgical glue was applied and the patient was stable throughout the procedure. Fluoroscopic guidance and interpretation was performed for introduction of the guidewire in the left subclavian vein, passage of dilator and placement of ca theter tip in the distal superior vena cava.
[2020-11-24 13:54] VITALS: BP 115/79; PULSE 75; RESP 18; TEMP 36.6; O2SAT 94
[2020-11-24 14:20] VITALS: BP 119/81; PULSE 74; RESP 18; O2SAT 95
--- NOTE | 2020-11-24 15:56 | ANE.PACU2 ---
Inpatient post-anesthesia follow up: Airway intact: Yes Vital signs: Temperature 97.8 F Pulse Rate 74 Respiratory Rate 18 Blood Pressure 119/81 Pulse Oximetry 95 Oxygen Delivery Me thod Room Air Oxygen Flow Rate Fraction of Inspir ed Oxygen Hydration adequate: Yes Nausea and vomiting: No Pain level: 1 Mental status: Baseline
== END 2020-11-24 14:20 | disposition home or self-care (01) ==
PROVIDERS: PCP Family Medicine; Visit Provider Surgery
PROC: (CPT 36561; principal; 2020-11-24 12:00)
DX: C67.8 Malignant neoplasm of overlapping sites of bladder (principal); I10 Essential (primary) hypertension
CPT/HCPCS: 36561; 76000; 77001; 96365; C1788; J0690; J1644; J2250; J3010; J3490; J7030

== ENCOUNTER 2020-11-24 10:41 | Outpatient (CLI) | payer BC, SELFPAY ==
--- NOTE | 2020-11-24 10:54 | USCV_ITS ---
Juan Carlos Cuba Age: 60 Gender: M : 1960 Exam Date: 11/24/2020 11:17 Ordering Phys: Ben Figueroa MD Technologist: Anni Verduzco [place] [facility] [place]: CHEMO-BASELINE BP: / HR: 82 Rhythm: Sinus Technical Quality: Good MEASUREMENTS (Male / Female) Normal Values 2D ECHO LV Chamber Size 4.3 cm RV Chamber Size 2.5 cm LA Width 3.5 cm LA Height 4.5 cm RA Width 3.0 cm RA Height 4.6 cm M-MODE LV Diastolic Diameter MM 5.5 cm 4.2 - 5.9 / 3.9 - 5.3 cm LV Systolic Diameter MM 3.9 cm LV Ejection Fraction MM Teich 54.9 % IVS Diastolic Thickness MM 1.3 cm 0.6 - 1.0 / 0.6 - 0.9 cm IVS Systolic Thickness MM 1.6 cm LVPW Diastolic Thickness MM 0.8 cm 0.6 - 1.0 / 0.6 - 0.9 cm LVPW Systolic Thickness MM 1.6 cm FINDINGS Left Ventricle LV systolic function is normal with LVEF of 55-60%. No regional wall motion abnormalities are seen. Right Ventricle Grossly normal Right Atrium Normal in size Left Atrium Normal is size Mitral Valve Grossly normal Aortic Valve Tricuspid Valve Grossly normal Pulmonic Valve Pericardium Aorta CONCLUSIONS LV systolic function is normal with EF of 55-60%. No regional wall motion abnormalities are seen No comparison studies are available. Corey Marin MD (Electronically Signed) Final Date: 24 November 2020 19:49 S
== END 2020-11-24 10:42 | disposition home or self-care (01) ==
LOC: RAD 10:43
PROVIDERS: PCP Family Medicine; Visit Provider Internal Medicine Medical Oncology
DX: C67.8 Malignant neoplasm of overlapping sites of bladder (principal)
CPT/HCPCS: 93308

== ENCOUNTER 2020-11-28 06:06 | Outpatient (CLI) | payer BC, SELFPAY ==
[2020-11-28] MEDS: sodium chloride 0.9% 500 ML 75 ML IV (08:25)
[2020-11-28] MEDS: diphenhydrAMINE 50 mg/mL SDV 1mL 25 MG IV (08:28)
[2020-11-28] MEDS: famotidine 20 mg/2 mL INJ IVP (08:32)
[2020-11-28 08:36] LABS: Basophils # 0.1 10^3/uL (0.0-0.1); Eosinophils # 0.3 10^3/uL (0.0-0.8); Eosinophils % 3.3 %; Hematocrit 39.1 % (42.0-52.0); Hemoglobin 13.6 g/dL (11.7-16.6); Lymphocytes % 20.8 %; Mean Corpuscular HGB Conc 34.8 g/dL (30.0-36.0); Mean Corpuscular Hemoglobin 30.4 pg (28.0-34.0); Mean Corpuscular Volume 87.3 fL (80-94); Mean Platelet Volume 8.9 fL (7.4-10.4); Monocytes # 0.6 10^3/uL (0.2-0.9); Monocytes % 6.5 %; Neutrophils # 6.48 10^3/uL (1.8-7.7); Neutrophils % 67.8 %; Nucleated Red Blood Cells % 0 %; Platelet Count 369 10^3/cmm (130-400); Red Blood Count 4.48 10^6/uL (4.1-5.3); Red Cell Distribution Width 12.2 % (12.1-15.1); White Blood Count 9.6 10^3/uL (4.0-10.0)
[2020-11-28 08:56] LABS: Alanine Aminotransferase 27 U/L (0-41); Albumin Level 4.1 g/dL (3.5-5.2); Alkaline Phosphatase 81 IU/L (40-130); Anion Gap 13.8 (5-19); Aspartate Amino Transferase 18 U/L (0-40); Blood Urea Nitrogen 17 mg/dL (8-23); Calcium 9.4 mg/dL (8.5-10.5); Carbon Dioxide 27 mmol/L (22-29); Chloride 103 mmol/L (98-107); Globulin 3.1 g/dL (1.3-4.6); Glomerular Filtration Rate 75.7 mL/min (90-130); Glucose 139 mg/dL (65-115); Osmolality Calculated 294 mOsm/kg (285-295); Potassium 3.8 mmol/L (3.5-5.1); Sodium 140 mmol/L (136-145); Total Bilirubin 0.8 mg/dL (0.15-1.2); Total Protein 7.2 g/dL (6.6-8.7)
[2020-11-28] MEDS: palonosetron 0.25 mg/5 mL SDV IV (10:30)
[2020-11-28] MEDS: fosaprepitant 150 MG in sodium chloride 0.9% 150 ML 300 MG IV (10:45)
[2020-11-28] MEDS: vinBLAStine 6 MG in sodium chloride 0.9% 50 ML 224 MG IV (11:45)
[2020-11-28] MEDS: potassium chloride 20 MEQ in sodium chloride 0.9% 500 ML 250 MEQ IV (13:25)
[2020-11-28] MEDS: FUROsemide 10 mg/mL SDV 2mL 20 MG IV (13:30)
[2020-11-28] MEDS: pegfilgrastim 6 mg/0.6 mL Kit (onpro) SUBCUT (14:00)
== END 2020-11-28 06:07 | disposition home or self-care (01) ==
PROVIDERS: PCP Family Medicine; Visit Provider Internal Medicine Medical Oncology
DX: Z51.11 Encounter for antineoplastic chemotherapy (principal); C67.8 Malignant neoplasm of overlapping sites of bladder; Z79.899 Other long term (current) drug therapy
CPT/HCPCS: 36591; 80053; 85025; 96366; 96367; 96372; 96375; 96411; 96413; J1100; J1200; J1453; J1940; J2469; J2505; J3475; J3480; J3490; J7030; J7040; J9000; J9060; J9260; J9360

== ENCOUNTER 2020-12-05 05:52 | Outpatient (CLI) | payer BC, SELFPAY ==
[2020-12-05 09:44] LABS: Hematocrit 39.8 % (42.0-52.0); Hemoglobin 13.7 g/dL (11.7-16.6); Mean Corpuscular HGB Conc 34.4 g/dL (30.0-36.0); Mean Corpuscular Hemoglobin 30.1 pg (28.0-34.0); Mean Corpuscular Volume 87.5 fL (80-94); Mean Platelet Volume 9.1 fL (7.4-10.4); Platelet Count 349 10^3/cmm (130-400); Red Blood Count 4.55 10^6/uL (4.1-5.3)
[2020-12-05 10:19] LABS: Slide Review Slide Review Perform
[2020-12-05 10:20] LABS: Band Neutrophils Absolute 5.2 10^3/cmm (0.0-1.2); Lymphocytes 11 %; Monocytes Absolute 0.3 10^3/cmm (0.1-0.6); Segmented Neutrophils 50 %; Total Cells Counted 100 (0-100)
[2020-12-05 10:21] LABS: Absolute Neutrophil 12.2 10^3/cmm (1.4-6.5); Platelet Estimate Normal (Normal)
[2020-12-05 10:24] LABS: Eosinophils 0 %
== END 2020-12-05 05:53 | disposition home or self-care (01) ==
LOC: ONCMED 05:53
PROVIDERS: PCP Family Medicine; Visit Provider Internal Medicine Medical Oncology
DX: C67.8 Malignant neoplasm of overlapping sites of bladder (principal)
CPT/HCPCS: 36591; 85007; 85025

== ENCOUNTER 2020-12-26 05:40 | Outpatient (RCR) | payer BC, SELFPAY ==
[2020-12-11 08:11] LABS: Basophils # 0.1 10^3/uL (0.0-0.1); Basophils % 0.4 %; Eosinophils # 0.1 10^3/uL (0.0-0.8); Eosinophils % 0.8 %; Hematocrit 39.3 % (42.0-52.0); Hemoglobin 13.7 g/dL (11.7-16.6); Lymphocytes # 2.2 10^3/uL (0.8-4.8); Lymphocytes % 17.1 %; Mean Corpuscular HGB Conc 34.9 g/dL (30.0-36.0); Mean Corpuscular Hemoglobin 30.9 pg (28.0-34.0); Mean Corpuscular Volume 88.5 fL (80-94); Mean Platelet Volume 9.3 fL (7.4-10.4); Monocytes # 0.7 10^3/uL (0.2-0.9); Monocytes % 5.3 %; Neutrophils # 9.15 10^3/uL (1.8-7.7); Neutrophils % 70.7 %; Nucleated Red Blood Cells % 0 %; Platelet Count 181 10^3/cmm (130-400); Red Blood Count 4.44 10^6/uL (4.1-5.3); Red Cell Distribution Width 12.8 % (12.1-15.1); White Blood Count 12.9 10^3/uL (4.0-10.0)
[2020-12-11] MEDS: sodium chloride 0.9% 250 ML 75 ML IV (08:25)
[2020-12-11 08:42] LABS: Slide Review Slide Review Perform
[2020-12-11 08:58] LABS: Alanine Aminotransferase 18 U/L (0-41); Albumin Level 4.2 g/dL (3.5-5.2); Alkaline Phosphatase 126 IU/L (40-130); Anion Gap 14.8 (5-19); Aspartate Amino Transferase 15 U/L (0-40); Blood Urea Nitrogen 14 mg/dL (8-23); Calcium 9.1 mg/dL (8.5-10.5); Carbon Dioxide 26 mmol/L (22-29); Chloride 101 mmol/L (98-107); Globulin 2.5 g/dL (1.3-4.6); Glomerular Filtration Rate 61.3 mL/min (90-130); Glucose 160 mg/dL (65-115); Osmolality Calculated 290 mOsm/kg (285-295); Potassium 3.8 mmol/L (3.5-5.1); Sodium 138 mmol/L (136-145); Total Bilirubin 0.5 mg/dL (0.15-1.2); Total Protein 6.7 g/dL (6.6-8.7)
[2020-12-11] MEDS: famotidine 20 mg/2 mL INJ IVP (10:00)
[2020-12-11] MEDS: diphenhydrAMINE 50 mg/mL SDV 1mL 25 MG IV (10:05)
[2020-12-11] MEDS: palonosetron 0.25 mg/5 mL SDV IV (10:16)
[2020-12-11] MEDS: fosaprepitant 150 MG in sodium chloride 0.9% 150 ML 300 MG IV (10:36)
[2020-12-11] MEDS: FUROsemide 10 mg/mL SDV 2mL 20 MG IV (12:54)
[2020-12-11] MEDS: potassium chloride 20 MEQ in sodium chloride 0.9% 500 ML 250 MEQ IV (12:56)
[2020-12-11] MEDS: pegfilgrastim 6 mg/0.6 mL Kit (onpro) SUBCUT (14:00)
[2020-12-18 09:06] LABS: Alanine Aminotransferase 24 U/L (0-41); Albumin Level 4.1 g/dL (3.5-5.2); Alkaline Phosphatase 207 IU/L (40-130); Anion Gap 13.9 (5-19); Aspartate Amino Transferase 15 U/L (0-40); Blood Urea Nitrogen 13 mg/dL (8-23); Calcium 9.1 mg/dL (8.5-10.5); Carbon Dioxide 26 mmol/L (22-29); Chloride 100 mmol/L (98-107); Globulin 2.5 g/dL (1.3-4.6); Glomerular Filtration Rate 85.5 mL/min (90-130); Glucose 163 mg/dL (65-115); Osmolality Calculated 286 mOsm/kg (285-295); Potassium 3.9 mmol/L (3.5-5.1); Sodium 136 mmol/L (136-145); Total Bilirubin 0.7 mg/dL (0.15-1.2); Total Protein 6.6 g/dL (6.6-8.7)
[2020-12-18 09:10] LABS: Basophils % 0.1 %; Eosinophils % 0.1 %; Hematocrit 37.5 % (42.0-52.0); Hemoglobin 12.7 g/dL (11.7-16.6); Lymphocytes # 1.1 10^3/uL (0.8-4.8); Lymphocytes % 11.1 %; Mean Corpuscular HGB Conc 33.9 g/dL (30.0-36.0); Mean Corpuscular Hemoglobin 30.3 pg (28.0-34.0); Mean Corpuscular Volume 89.5 fL (80-94); Mean Platelet Volume 10.3 fL (7.4-10.4); Monocytes # 0.4 10^3/uL (0.2-0.9); Monocytes % 3.9 %; Neutrophils % 83.4 %; Nucleated Red Blood Cells % 0 %; Platelet Count 151 10^3/cmm (130-400); Red Blood Count 4.19 10^6/uL (4.1-5.3); White Blood Count 10.1 10^3/uL (4.0-10.0)
[2020-12-18 09:50] LABS: Slide Review Slide Review Perform
--- NOTE | 2020-12-21 23:07 | ONC FU_ITS ---
Markus Lazcano Patient Note Patient: Juan Carlos Cuba Unit #: [id number]: 1960 Dictated By: Arden VillatoroDate of Visit: Dec 11, 2020 Onc MED Follow-Up/Prog Note Chief Complaint: Bladder cancer. 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 He had been having episodes of gross hematuria since March 2020. He also complained of having bladder spasms with voiding. The symptoms persisted despite antibiotic therapy. CT of the abdomen/pelvis on 10/29/2020 showed a lobulated soft tissue mass filling a large portion of the bladder consistent with bladder neoplasm or mixed density from hemorrhage. The prostate was noted to be slightly enlarged. There was no associated adenopathy. A 1.2 cm low-attenuation lesion within the left lobe of the liver was thought to be likely a cyst. His outpatient cystoscopy on 11/07/2020 showed a huge well differentiated appearing transitional cell cancer involving the right side of the bladder extending from the dome to the bladder neck. Multiple other smaller papillary tumors were involving the left bladder wall and dome. On 11/14/2020 he underwent cystoscopy with TURBT. He was noted to have 3 distinct areas of large bladder tumor involving the right lateral wall, right lateral anterior wall, and lateral right lateral anterior wall with partial involvement of the dome. There were additional multiple sheets of papillary tumor scattered throughout the bladder wall. Due to the large bulk of the procedure was planned as an initial stage resection. Approximately half of the tumor was able to be resected. Pathology showed high-grade papillary urothelial carcinoma with lamina propria invasion. Detrussor muscle also was noted to be involved with high-grade papillary urothelial carcinoma. With that finding, he has been recommended to see Dr. Ashish Bose at the [facility] in regard to further surgery, and he has been advised to proceed with neoadjuvant chemotherapy. He had placement of a Power Port on 11/24/2020. Mr Cuba began his first cycle of Cisplatin/Doxorubicin/Methotrexate/Vinblastine with Neulasta support on 11/28/2020. Mr Cuba is here today for followup. He is due for cycle 2 day 1 MVAC. Reports he tolerated his first cycle pretty well overall. He states that he had better urine control on the second day. He denies any hematuria. He states he had may be just a little nausea but nothing that was bad . He did not require any antiemetics. He states he is eating a very clean diet and his appetite is good. He had been used to working out regularly prior to surgery for his port and before starting his chemotherapy. He states he would like to resume gradually working out again. He denies any fever or chills. He denies any mouth sores, sore throat or difficulty swallowing. He has had some intermittent fatigue but states overall he feels he is doing well. He denies any diarrhea or constipation. He denies any pain. He states he has not had any rash. He denies any neuropathy or hearing changes at present. His ECOG is 0. Past Medical History: History of diverticulitis Hyperlipidemia Hypertension Past Surgical History: Biceps tendon repair on the right Foot surgery LASEK eye surgery x 3 Surgery for cryptorchidism in 1962 and in 1963 Cystoscopy/TURBT in 2020 Colonoscopy in 2018 Allergies: No Known Allergies. Medications: Atorvastatin Calcium (20 mg) Tablet Oral daily hydroCHLOROthiazide (12.5 mg) Tablet Oral daily Multi-Vitamin Tablet Oral daily Family History: Mr. Cuba's mother at age 73: stroke. Mr. Cuba's father at age 64: cancer of unknown primary. Mr. Cuba has 3 sisters: 2 alive, 1 . Mr. Cuba's first sister's choking. Father of lung cancer at age 64. Mother with heart attack at age 73. A sister with choking at age 73. Social History: Mr. 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 Mr. Cuba has never smoked. He drinks occasionally. 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 He is a non-smoker, and he has not used other tobacco products. He has had only rare alcohol use. Review Of Symptoms: Constitutional Denies fevers, chills, night sweats, excessive fatigue or weight loss. Allergic/Immunologic No reactions. Eyes Denies significant visual changes. No diplopia. No amaurosis. ENMT Denies changes in hearing, sore throat, mouth sores, difficulty or changes in swallowing ability, and/or sinus drainage. Endocrine No diabetes, thyroid disease or hormone replacement. Denies hot flashes or night sweats. Hematologic/Lymphatic Denies easy bruising or bleeding. The patient denies any tender or palpable lymph nodes. Respiratory Denies dyspnea on exertion, chest pain, cough or hemoptysis. Denies orthopnea. Cardiovascular Denies anginal chest pain, palpitations or orthopnea. Gastrointestinal Denies nausea, vomiting, diarrhea, GI bleeding, or constipation. Denies change in bowel habits and/or stool color, no heartburn or early satiety. maybe just little nausea but not bad . Genitourinary (M) Denies hematuria, dysuria, increased frequency, urgency, hesitancy or incontinence. Musculoskeletal Denies joint pain, swelling or redness. No decreased range of motion. Integumentary Denies chronic rashes, inflammation, ulcerations or skin changes. Neurologic Denies headache, blurred vision, and no areas of focal weakness or numbness. Normal gait. No sensory problems. Psychiatric Denies insomnia, depression, colleen or mood swings. Vital Signs: Performed on Dec 11, 2020 08:20 Height - 69.00 in Temperature - 98.2 F (LOW) Pulse - 81 /min Respiration - 16 /min BP - 123/78 mm(hg) O2 Sat - 96 % Pain - 0,0 - Fully active, able to carry on all predisease activities without restrictions. (ECOG) Physical Examination: Constitutional Alert, oriented, no acute distress. Skin pink, warm and dry. Head Normocephalic; atraumatic. Eyes Conjunctivae and sclerae are clear and without icterus. Pupils are reactive and equal. Neck Supple without masses or thyromegaly. No jugular venous distension. Hematologic/Lymphatic No petechiae or purpura. Respiratory Lungs are clear to auscultation without rhonchi or wheezing. Cardiovascular Regular rate and rhythm of heart without murmurs,clicks, gallops or rubs. Chest Chest is symmetric without chest wall deformities. Left chest wall venous access device insertion site is unremarkable. It has healed well. Breasts Abdomen Non-tender, non-distended, no masses or ascites. Back/Spine Non-tender to palpation. Musculoskeletal No tenderness or swelling, normal range of motion without obvious weakness. Integumentary No rashes or lesions. Neurologic No sensory or motor deficits, normal cerebellar function. Psychiatric Alert and oriented times three. Coherent speech. Verbalizes understanding of our discussions today. Laboratory:Test performed on Dec 11, 2020 08:00 Sodium 138 mmol/L Potassium 3.8 mmol/L Chloride 101 mmol/L CO2 26 mmol/L Anion Gap 14.8 BUN 14 mg/dL Creatinine 1.2 mg/dL Cr Clearance (Est) 76.0000 mL/min eGFR 61.3 mL/min Glucose 160 mg/dL Osmolality - Calculated 290 mOsm/kg Calcium 9.1 mg/dL Protein, Total 6.7 g/dL Albumin 4.2 g/dL Globulin 2.5 g/dL Bilirubin, Total 0.5 mg/dL ALT (SGPT) 18 U/L AST (SGOT) 15 U/L Alkaline Phosphatase 126 IU/L WBC 12.9 10 3/uL RBC 4.44 10 6/uL HGB 13.7 g/dL HCT 39.3 % MCV 88.5 fL MCH 30.9 pg MCHC 34.9 g/dL RDW 12.8 % Platelet Count 181 10 3/cmm MPV 9.3 fL Neutrophils 9.15 10 3/uL Lymphocytes 2.2 10 3/uL Monocytes 0.7 10 3/uL Eosinophils 0.1 10 3/uL Basophils 0.1 10 3/uL Neutrophil % 70.7 % Lymphocyte % 17.1 % Monocyte % 5.3 % Eosinophil % 0.8 % Basophils % 0.4 % NRBC % 0 % CBC Slide Review Slide Review Perform SLIDE REVIEW AGREES WITH AUTOMATED RESULTS ST Impression: 1. High-grade papillary urothelial carcinoma involving the bladder with pathologic evidence of muscle invasion. By clinical evaluation his disease is stage II (T2, N0, M0). 2. Borderline hypertension. 3. Hyperlipidemia. Plan: PROBLEMS ADDRESSED TODAY 1. High-grade papillary urothelial carcinoma involving the bladder with pathologic evidence of muscle invasion. By clinical evaluation his disease is stage II (T2, N0, M0). He was noted to have bulky disease within the bladder, and he underwent partial resection with TURBT on 11/14/2020. In the setting of bulky, muscle invasive disease he has been recommended to see Dr. Ashish Bose at [facility] for further surgery, and he has been advised to proceed with neoadjuvant chemotherapy. The recommended chemotherapy is dose dense MVAC regimen administered every 2 weeks for a total of 4 cycles of treatment. He did undergo placement of Port-A-Cath venous access device for the chemotherapy with Dr. Parikh on 11/24/2020. His baseline echocardiogram was obtained on 11/24/2020. It was reported with LV systolic function normal at 55-60%. There were no regional wall motion abnormalities noted. Mr. Cuba began his first cycle of MVAC on November 28, 2020. He has tolerated it well thus far. A. Proceed with cycle 2-day 1 MVAC. B. Continue current antiemetics as they are working well for him. C. Continue support with Neulasta on pro. He did not have any documented neutropenia. D. Labs from today were reviewed in detail and discussed with Mr. Cuba and a copy was offered to him. WBC 12.9, hemoglobin 13.7, platelets 181,000 ANC is 9150. Creatinine 1.2 random glucose 160 LFTs are normal. 2. Follow-up plan A. CBC and CMP in 1 week for follow-up of his chemotherapy. B. Follow-up in 2 weeks with CBC CMP and office visit could be due for cycle 3 MVAC at that time. C. He is advised he may gradually start working out but will be cautious with his Port-A-Cath insertion site as it may still be recovering from surgery. D. Mr. Quintero was encouraged to contact us in interim should questions or problems arise. Signed By: Arden Villatoro-, [facility] Ben Figueroa MD <<Signature on File>>
[2020-12-26] MEDS: sodium chloride 0.9% 250 ML 75 ML IV (07:50)
[2020-12-26 07:56] LABS: Basophils # 0.1 10^3/uL (0.0-0.1); Basophils % 0.8 %; Eosinophils % 0.1 %; Hematocrit 34.6 % (42.0-52.0); Hemoglobin 11.8 g/dL (11.7-16.6); Lymphocytes # 2.2 10^3/uL (0.8-4.8); Lymphocytes % 14.5 %; Mean Corpuscular HGB Conc 34.1 g/dL (30.0-36.0); Mean Corpuscular Hemoglobin 30.7 pg (28.0-34.0); Mean Corpuscular Volume 90.1 fL (80-94); Mean Platelet Volume 8.8 fL (7.4-10.4); Monocytes # 0.7 10^3/uL (0.2-0.9); Monocytes % 4.8 %; Neutrophils % 74.4 %; Nucleated Red Blood Cells % 0.1 %; Platelet Count 237 10^3/cmm (130-400); Red Blood Count 3.84 10^6/uL (4.1-5.3); Red Cell Distribution Width 13.9 % (12.1-15.1); White Blood Count 15.2 10^3/uL (4.0-10.0)
[2020-12-26 08:17] LABS: Alanine Aminotransferase 19 U/L (0-41); Alkaline Phosphatase 134 IU/L (40-130); Anion Gap 14.7 (5-19); Aspartate Amino Transferase 20 U/L (0-40); Blood Urea Nitrogen 14 mg/dL (8-23); Calcium 8.6 mg/dL (8.5-10.5); Carbon Dioxide 25 mmol/L (22-29); Chloride 101 mmol/L (98-107); Globulin 2.3 g/dL (1.3-4.6); Glomerular Filtration Rate 75.7 mL/min (90-130); Glucose 185 mg/dL (65-115); Osmolality Calculated 289 mOsm/kg (285-295); Potassium 3.7 mmol/L (3.5-5.1); Sodium 137 mmol/L (136-145); Total Bilirubin 0.3 mg/dL (0.15-1.2); Total Protein 6.3 g/dL (6.6-8.7)
[2020-12-26 08:22] LABS: Slide Review Slide Review Perform
[2020-12-26] MEDS: famotidine 20 mg/2 mL INJ IVP (09:13)
[2020-12-26] MEDS: diphenhydrAMINE 50 mg/mL SDV 1mL 25 MG IV (09:14)
[2020-12-26] MEDS: fosaprepitant 150 MG in sodium chloride 0.9% 150 ML 300 MG IV (09:23)
[2020-12-26] MEDS: palonosetron 0.25 mg/5 mL SDV IV (09:49)
[2020-12-26] MEDS: FUROsemide 10 mg/mL SDV 2mL 20 MG IV (12:30)
[2020-12-26] MEDS: potassium chloride 20 MEQ in sodium chloride 0.9% 500 ML 255 MEQ IV (12:33)
[2020-12-26] MEDS: pegfilgrastim 6 mg/0.6 mL Kit (onpro) SUBCUT (13:34)
--- NOTE | 2020-12-28 16:01 | ONC FU_ITS ---
Dr. Figueroa Patient Follow-Up Note Patient: Juan Carlos Cuba Unit #: [id number]: 1960 Dicatated By: Ben Figueroa M.D.Date of Visit:Dec 26, 2020 Onc Med Follow-up/Prog Note Chief Complaint: Bladder cancer. 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 He had been having episodes of gross hematuria since March 2020. He also complained of having bladder spasms with voiding. The symptoms persisted despite antibiotic therapy. CT of the abdomen/pelvis on 10/29/2020 showed a lobulated soft tissue mass filling a large portion of the bladder consistent with bladder neoplasm or mixed density from hemorrhage. The prostate was noted to be slightly enlarged. There was no associated adenopathy. A 1.2 cm low-attenuation lesion within the left lobe of the liver was thought to be likely a cyst. His outpatient cystoscopy on 11/07/2020 showed a huge well differentiated appearing transitional cell cancer involving the right side of the bladder extending from the dome to the bladder neck. Multiple other smaller papillary tumors were involving the left bladder wall and dome. On 11/14/2020 he underwent cystoscopy with TURBT. He was noted to have 3 distinct areas of large bladder tumor involving the right lateral wall, right lateral anterior wall, and lateral right lateral anterior wall with partial involvement of the dome. There were additional multiple sheets of papillary tumor scattered throughout the bladder wall. Due to the large bulk of tumor, the procedure was planned as an initial stage resection. Approximately half of the tumor was able to be resected. Pathology showed high-grade papillary urothelial carcinoma with lamina propria invasion. Detrussor muscle also was noted to be involved with high-grade papillary urothelial carcinoma. With that finding, he was recommended to see Dr. Ashish Bose at the [facility] in regard to further surgery, and he was advised to proceed with neoadjuvant chemotherapy. His medical history is otherwise significant for borderline hypertension and for hyperlipidemia. He has a history of diverticulitis. He is a non-smoker and he has not used other tobacco products. INTERIM HISTORY: He began cycle 1 of neoadjuvant dose dense MVAC on 11/28/2020. He tolerated that treatment well, and he continued with cycle 2 on 12/11/2020. He is seen for a scheduled visit. He has been feeling pretty good generally. He does have some fatigue, but he is working. His ECOG score is 1. He has some decrease in appetite associated with a sour taste. He has no fever or night sweats. He has had a little bit of sinus congestion and he has a slight cough. He has not had mouth sores and he does not complain of shortness of breath or chest pain. He has had just very mild nausea/indigestion. He does have constipation following the chemotherapy, which he is managing with a softener/laxative. He has no complaints. He has noted significant improvement in his bladder function and he has had no further hematuria. He has had some mild generalized aching with the chemotherapy. He has no other joint or bone pain. He has had a little bit of tingling in his feet. Medications: Atorvastatin Calcium (20 mg) Tablet Oral daily, hydroCHLOROthiazide (12.5 mg) Tablet Oral daily, Multi-Vitamin Tablet Oral daily Allergies: No Known Allergies. Vital Signs: Performed on Dec 26, 2020 08:18 Height - 69.00 in Temperature - 98.0 F (LOW) Pulse - 84 /min Respiration - 17 /min BP - 123/80 mm(hg) O2 Sat - 96 % Pain - 0 Physical Examination: Constitutional - He looks good generally, Eyes - Sclerae nonicteric. Conjunctivae clear, ENMT - No lesions noted in the oral cavity, Hematologic/Lymphatic - No cervical, clavicular, or axillary adenopathy, Respiratory - Lungs are clear with good air movement bilaterally, Cardiovascular - Heart rhythm is regular. There is no murmur, gallop, or rub noted, Abdomen - Soft. Liver and spleen are not enlarged. There is no abdominal mass or ascites noted and there is no inguinal adenopathy, Extremities - No edema, Neurologic - No focal neurologic deficits noted. Lab/Imaging: Test performed on Dec 26, 2020 07:45 Sodium 137 mmol/L Potassium 3.7 mmol/L Chloride 101 mmol/L CO2 25 mmol/L Anion Gap 14.7 BUN 14 mg/dL Creatinine 1.0 mg/dL Cr Clearance (Est) 91.2000 mL/min eGFR 75.7 mL/min Glucose 185 mg/dL Osmolality - Calculated 289 mOsm/kg Calcium 8.6 mg/dL Protein, Total 6.3 g/dL Albumin 4.0 g/dL Globulin 2.3 g/dL Bilirubin, Total 0.3 mg/dL ALT (SGPT) 19 U/L AST (SGOT) 20 U/L Alkaline Phosphatase 134 IU/L WBC 15.2 10 3/uL RBC 3.84 10 6/uL HGB 11.8 g/dL HCT 34.6 % MCV 90.1 fL MCH 30.7 pg MCHC 34.1 g/dL RDW 13.9 % Platelet Count 237 10 3/cmm MPV 8.8 fL Neutrophils 11.30 10 3/uL Lymphocytes 2.2 10 3/uL Monocytes 0.7 10 3/uL Eosinophils 0.0 10 3/uL Basophils 0.1 10 3/uL Neutrophil % 74.4 % Lymphocyte % 14.5 % Monocyte % 4.8 % Eosinophil % 0.1 % Basophils % 0.8 % NRBC % 0.1 % CBC Slide Review Slide Review Perform SLIDE REVIEW AGREES WITH AUTOMATED RESULTS ST Problem List: 1. High-grade papillary urothelial carcinoma involving the bladder with pathologic evidence of muscle invasion. By clinical evaluation his disease is stage II (T2, N0, M0). 2. Borderline hypertension. 3. Hyperlipidemia. Problems Addressed with this Encounter and Plan: High-grade papillary urothelial carcinoma involving the bladder with pathologic evidence of muscle invasion. By clinical evaluation his disease is stage II (T2, N0, M0). He was noted to have bulky disease within the bladder, and he underwent partial resection with TURBT on 11/14/2020. In the setting of bulky, muscle invasive disease he was advised to proceed with neoadjuvant chemotherapy. On 11/28/2019 when he began cycle 1 of neoadjuvant dose dense MVAC. He tolerated it with minimal toxicity, and he continued with cycle 2 on 12/11/2020. Overall, he has been doing well clinically. He has very minimal side effects with the chemotherapy, limited to fatigue, mild nausea, and some very mild neuropathy symptoms. He appears to be having a good response by clinical evaluation. He will proceed now with cycle 3. Dosages will remain the same. He will be scheduled to return in 2 weeks for his 4th cycle. In the meantime, he will be seeing Dr. Bose at the [facility]. Signed By: Ben Figueroa M.D. <<Signature on File>>
== END 2020-12-31 23:59 | disposition home or self-care (01) ==
LOC: ONCMED 05:40
PROVIDERS: Nurse Practitioner; PCP Family Medicine; Visit Provider Internal Medicine Medical Oncology
DX: Z51.11 Encounter for antineoplastic chemotherapy (principal); C67.8 Malignant neoplasm of overlapping sites of bladder; I10 Essential (primary) hypertension; E78.5 Hyperlipidemia, unspecified; Z79.899 Other long term (current) drug therapy
CPT/HCPCS: 36415; 36591; 80053; 85025; 96366; 96367; 96372; 96375; 96411; 96413; 96417; 99214; J1100; J1200; J1453; J1940; J2469; J2505; J3475; J3480; J3490; J7030; J7040; J7050; J9000; J9060; J9260; J9360

== ENCOUNTER 2021-01-09 05:51 | Outpatient (RCR) | payer BC, SELFPAY ==
[2021-01-09] MEDS: alteplase 1 mg/mL SDV 2 mL 2 MG IV (07:35)
[2021-01-09 07:47] LABS: Hematocrit 31.7 % (42.0-52.0); Hemoglobin 10.8 g/dL (11.7-16.6); Mean Corpuscular HGB Conc 34.1 g/dL (30.0-36.0); Mean Corpuscular Hemoglobin 30.6 pg (28.0-34.0); Mean Corpuscular Volume 89.8 fL (80-94); Mean Platelet Volume 9.5 fL (7.4-10.4); Platelet Count 252 10^3/cmm (130-400); Red Blood Count 3.53 10^6/uL (4.1-5.3); Red Cell Distribution Width 15.5 % (12.1-15.1); White Blood Count 15.2 10^3/uL (4.0-10.0)
[2021-01-09] MEDS: sodium chloride 0.9% 500 ML 999 ML IV (07:48)
[2021-01-09 08:04] LABS: Alanine Aminotransferase 15 U/L (0-41); Alkaline Phosphatase 127 IU/L (40-130); Anion Gap 12.9 (5-19); Aspartate Amino Transferase 16 U/L (0-40); Blood Urea Nitrogen 14 mg/dL (8-23); Carbon Dioxide 27 mmol/L (22-29); Chloride 104 mmol/L (98-107); Glomerular Filtration Rate 67.8 mL/min (90-130); Glucose 148 mg/dL (65-115); Osmolality Calculated 293 mOsm/kg (285-295); Potassium 3.9 mmol/L (3.5-5.1); Sodium 140 mmol/L (136-145); Total Bilirubin 0.3 mg/dL (0.15-1.2)
[2021-01-09 08:27] LABS: Slide Review Slide Review Perform
[2021-01-09 08:29] LABS: Absolute Neutrophil 9.4 10^3/cmm (1.4-6.5); Absolute Segmented Neutrophil 7.4 10/cmm (1.6-7.1); Anisocytosis 1+; Eosinophils 0 %; Lymphocytes 19 %; Lymphocytes Absolute 3.2 10^3/cmm (1.2-3.4); Monocytes Absolute 1.1 10^3/cmm (0.1-0.6); Platelet Estimate Normal (Normal); Segmented Neutrophils 49 %; Total Cells Counted 100 (0-100)
[2021-01-09] MEDS: famotidine 20 mg/2 mL INJ IVP (09:37)
[2021-01-09] MEDS: diphenhydrAMINE 50 mg/mL SDV 1mL 25 MG IV (09:38)
[2021-01-09] MEDS: palonosetron 0.25 mg/5 mL SDV IV (09:40)
[2021-01-09] MEDS: fosaprepitant 150 MG in sodium chloride 0.9% 150 ML 300 MG IV (09:57)
[2021-01-09] MEDS: potassium chloride 20 MEQ in sodium chloride 0.9% 500 ML 250 MEQ IV (11:58)
[2021-01-09] MEDS: FUROsemide 10 mg/mL SDV 2mL 20 MG IV (11:58)
[2021-01-09] MEDS: pegfilgrastim 6 mg/0.6 mL Kit (onpro) SUBCUT (12:50)
--- NOTE | 2021-01-09 14:35 | ONC FU_ITS ---
Dr. Figueroa Patient Follow-Up Note Patient: Juan Carlos Cuba Unit #: [id number]: 1960 Dicatated By: Ben Figueroa M.D.Date of Visit:Jan 09, 2021 Onc Med Follow-up/Prog Note Chief Complaint: Bladder cancer. 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 He had been having episodes of gross hematuria since March 2020. He also complained of having bladder spasms with voiding. The symptoms persisted despite antibiotic therapy. CT of the abdomen/pelvis on 10/29/2020 showed a lobulated soft tissue mass filling a large portion of the bladder consistent with bladder neoplasm or mixed density from hemorrhage. The prostate was noted to be slightly enlarged. There was no associated adenopathy. A 1.2 cm low-attenuation lesion within the left lobe of the liver was thought to be likely a cyst. His outpatient cystoscopy on 11/07/2020 showed a huge well differentiated appearing transitional cell cancer involving the right side of the bladder extending from the dome to the bladder neck. Multiple other smaller papillary tumors were involving the left bladder wall and dome. On 11/14/2020 he underwent cystoscopy with TURBT. He was noted to have 3 distinct areas of large bladder tumor involving the right lateral wall, right lateral anterior wall, and lateral right lateral anterior wall with partial involvement of the dome. There were additional multiple sheets of papillary tumor scattered throughout the bladder wall. Due to the large bulk of tumor, the procedure was planned as an initial stage resection. Approximately half of the tumor was able to be resected. Pathology showed high-grade papillary urothelial carcinoma with lamina propria invasion. Detrussor muscle also was noted to be involved with high-grade papillary urothelial carcinoma. With that finding, he was recommended to see Dr. Ashish Bose at the [facility] in regard to further surgery, and he was advised to proceed with neoadjuvant chemotherapy. His medical history is otherwise significant for borderline hypertension and for hyperlipidemia. He has a history of diverticulitis. He is a non-smoker and he has not used other tobacco products. INTERIM HISTORY: He began cycle 1 of neoadjuvant dose dense MVAC on 11/28/2020. He tolerated that treatment well, and he continued with cycle 2 on 12/11/2020 and with cycle 3 on 12/26/2020. He is seen for a scheduled visit. He has been feeling pretty good generally. He has getting a little more fatigued. He also has been having more problems with allergies and he thinks he had a head cold last week. His ECOG score is 1. His appetite has improved. He has not had fever. He has had a little bit of sweating. He has sinus congestion/drainage. He has had a little bit of bloody discharge on the left side. He has had no mouth sores, but he does have a little bit of sore throat. His cough is better now. He does not complain of shortness of breath or chest pain. He has had just mild nausea. He does have constipation, but he is managing it adequately with senna/docusate. Bladder function has been good. He has had no hematuria. He has no significant joint or bone pain. He has had some mild headache and some mild dizziness. Was having a little numbness, but that has resolved.. Medications: Atorvastatin Calcium (20 mg) Tablet Oral daily, hydroCHLOROthiazide (12.5 mg) Tablet Oral daily, Multi-Vitamin Tablet Oral daily Allergies: No Known Allergies. Vital Signs: Performed on Jan 09, 2021 13:00 Height - 69.00 in Temperature - 97.6 F (LOW) Pulse - 81 /min Respiration - 16 /min BP - 135/84 mm(hg) O2 Sat - 97 % Performed on Jan 09, 2021 08:32 Height - 69.00 in Weight - 183 lbs (LOW) BSA - 1.99 sq.m BMI - 27.02 Temperature - 97.7 F (LOW) Pulse - 86 /min Respiration - 17 /min BP - 137/84 mm(hg) O2 Sat - 98 % Pain - 0 Physical Examination: Constitutional - He looks good generally, Eyes - Sclerae nonicteric. Conjunctivae clear, ENMT - No lesions noted in the oral cavity, Hematologic/Lymphatic - No cervical, clavicular, or axillary adenopathy, Respiratory - Lungs are clear with good air movement bilaterally, Cardiovascular - Heart rhythm is regular. There is no murmur, gallop, or rub noted, Abdomen - Soft. Liver and spleen are not enlarged. There is no abdominal mass or ascites noted and there is no inguinal adenopathy, Extremities - No edema, Neurologic - No focal neurologic deficits noted. Lab/Imaging: Test performed on Jan 09, 2021 07:30 Sodium 140 mmol/L Potassium 3.9 mmol/L Chloride 104 mmol/L CO2 27 mmol/L Anion Gap 12.9 BUN 14 mg/dL Creatinine 1.1 mg/dL Cr Clearance (Est) 82.9100 mL/min eGFR 67.8 mL/min Glucose 148 mg/dL Osmolality - Calculated 293 mOsm/kg Calcium 9.0 mg/dL Protein, Total 6.0 g/dL Albumin 4.0 g/dL Globulin 2.0 g/dL Bilirubin, Total 0.3 mg/dL ALT (SGPT) 15 U/L AST (SGOT) 16 U/L Alkaline Phosphatase 127 IU/L WBC 15.2 10 3/uL Manual Segs % 49 % Manual Bands % 13.0 % RBC 3.53 10 6/uL HGB 10.8 g/dL Manual Lymphs % 19 % Atypical Lymphs % 2.0 % HCT 31.7 % MCV 89.8 fL Total Cells Counted 100 Manual Monos % 7.0 % MCH 30.6 pg Manual Eos % 0 % MCHC 34.1 g/dL Manual Basos % 0.0 % RDW 15.5 % Metamyelocytes % 9.0 % Platelet Count 252 10 3/cmm MPV 9.5 fL Myelocytes % 1.0 % CBC Slide Review Slide Review Perform Anisocytosis 1+ Platelet Estimate Normal Manual Segs Abs 7.4 10/cmm Manual Bands Abs 2.0 10 3/cmm Manual Neutrophils Abs 9.4 10 3/cmm Manual Lymphocytes Abs 3.2 10 3/cmm Manual Monocytes Abs 1.1 10 3/cmm Manual Eosinophils Abs 0.0 10 3/cmm Manual Basophils Abs 0.0 10 3/cmm Problem List: 1. High-grade papillary urothelial carcinoma involving the bladder with pathologic evidence of muscle invasion. By clinical evaluation his disease is stage II (T2, N0, M0). 2. Borderline hypertension. 3. Hyperlipidemia. Problems Addressed with this Encounter and Plan: 1. 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 By clinical evaluation his disease is stage II (T2, N0, M0). He was noted to have bulky disease within the bladder, and he underwent partial resection with TURBT on 11/14/2020. In the setting of bulky, muscle invasive disease he was advised to proceed with neoadjuvant chemotherapy. On 11/28/2019 when he began cycle 1 of neoadjuvant dose dense MVAC. He tolerated it with minimal toxicity, and he continued with cycle 2 on 12/11/2020 and with cycle 3 on 12/26/2020. Overall, he has been doing well. He has only mild side effects with the chemotherapy. He has had improvement in his bladder symptoms, so that clinically he does appear to be showing some response. He will proceed now with his 4th and final cycle of treatment. He has seen Dr. Bose at the [facility], and he has tentatively scheduled to undergo surgery on 01/20/2021. 2. He is having some allergy related sinus symptoms. He is advised to try taking either cetirizine 10 mg daily or loratadine 10 mg daily, both of which would be available [id number]. Signed By: Ben Figueroa M.D. <<Signature on File>>
== END 2021-01-30 23:59 | disposition home or self-care (01) ==
LOC: ONCMED 05:51
PROVIDERS: PCP Family Medicine; Visit Provider Internal Medicine Medical Oncology
DX: Z51.11 Encounter for antineoplastic chemotherapy (principal); C67.8 Malignant neoplasm of overlapping sites of bladder; I10 Essential (primary) hypertension; E78.5 Hyperlipidemia, unspecified; Z79.899 Other long term (current) drug therapy
CPT/HCPCS: 80053; 85007; 85025; 96365; 96366; 96367; 96372; 96375; 96411; 96413; 96417; 99214; J1100; J1200; J1453; J1940; J2469; J2505; J2997; J3475; J3480; J3490; J7030; J7040; J9000; J9060; J9260; J9360

== ENCOUNTER → 2021-02-10 11:48 | Outpatient (BNVA) | payer BC, SELFPAY | PROVIDERS: PCP Family Medicine; Visit Provider Urology | DX: Z01.812 Encounter for preprocedural laboratory examination (principal); Z20.822 Contact with and (suspected) exposure to COVID-19 | CPT/HCPCS: 87635 ==

== ENCOUNTER 2021-03-16 11:18 | Outpatient (CLI) | payer BC, SELFPAY ==
[2021-03-16 11:41] LABS: Basophils % 0.3 %; Eosinophils # 0.1 10^3/uL (0.0-0.8); Eosinophils % 0.6 %; Hematocrit 25.9 % (42.0-52.0); Hemoglobin 8.3 g/dL (11.7-16.6); Lymphocytes # 0.9 10^3/uL (0.8-4.8); Lymphocytes % 8.1 %; Mean Corpuscular Hemoglobin 29.9 pg (28.0-34.0); Mean Corpuscular Volume 93.2 fL (80-94); Mean Platelet Volume 9.2 fL (7.4-10.4); Monocytes # 0.5 10^3/uL (0.2-0.9); Monocytes % 4.2 %; Neutrophils # 9.81 10^3/uL (1.8-7.7); Neutrophils % 85.6 %; Nucleated Red Blood Cells % 0 %; Platelet Count 394 10^3/cmm (130-400); Red Blood Count 2.78 10^6/uL (4.1-5.3); White Blood Count 11.5 10^3/uL (4.0-10.0)
[2021-03-16 12:13] LABS: Alanine Aminotransferase 179 U/L (0-41); Albumin Level 3.6 g/dL (3.5-5.2); Alkaline Phosphatase 624 IU/L (40-130); Anion Gap 18.9 (5-19); Aspartate Amino Transferase 74 U/L (0-40); Blood Urea Nitrogen 45 mg/dL (8-23); Calcium 9.8 mg/dL (8.5-10.5); Carbon Dioxide 21 mmol/L (22-29); Chloride 98 mmol/L (98-107); Globulin 4.4 g/dL (1.3-4.6); Glucose 181 mg/dL (65-115); Osmolality Calculated 292 mOsm/kg (285-295); Potassium 4.9 mmol/L (3.5-5.1); Sodium 133 mmol/L (136-145); Total Bilirubin 0.3 mg/dL (0.15-1.2)
== END 2021-03-16 11:19 | disposition home or self-care (01) ==
PROVIDERS: PCP Family Medicine; Visit Provider Urology
DX: C67.9 Malignant neoplasm of bladder, unspecified (principal)
CPT/HCPCS: 36415; 80053; 85025

== ENCOUNTER 2021-04-22 15:06 | Outpatient (CLI) | payer BC, SELFPAY ==
[2021-04-22 15:51] LABS: Basophils # 0.1 10^3/uL (0.0-0.1); Basophils % 0.6 %; Eosinophils # 0.1 10^3/uL (0.0-0.8); Eosinophils % 1.5 %; Hematocrit 31.8 % (42.0-52.0); Hemoglobin 9.3 g/dL (11.7-16.6); Lymphocytes # 1.4 10^3/uL (0.8-4.8); Mean Corpuscular HGB Conc 29.2 g/dL (30.0-36.0); Mean Corpuscular Hemoglobin 28.4 pg (28.0-34.0); Mean Corpuscular Volume 97.2 fL (80-94); Mean Platelet Volume 10.2 fL (7.4-10.4); Monocytes # 0.5 10^3/uL (0.2-0.9); Monocytes % 6.3 %; Neutrophils # 6.44 10^3/uL (1.8-7.7); Neutrophils % 75.2 %; Nucleated Red Blood Cells % 0 %; Platelet Count 233 10^3/cmm (130-400); Red Blood Count 3.27 10^6/uL (4.1-5.3); White Blood Count 8.6 10^3/uL (4.0-10.0)
[2021-04-22 16:21] LABS: Alanine Aminotransferase 22 U/L (0-41); Albumin Level 3.9 g/dL (3.5-5.2); Alkaline Phosphatase 123 IU/L (40-130); Blood Urea Nitrogen 17 mg/dL (8-23); Calcium 8.8 mg/dL (8.5-10.5); Carbon Dioxide 21 mmol/L (22-29); Chloride 105 mmol/L (98-107); Globulin 3.2 g/dL (1.3-4.6); Glomerular Filtration Rate 61.3 mL/min (90-130); Glucose 101 mg/dL (65-115); Osmolality Calculated 286 mOsm/kg (285-295); Sodium 137 mmol/L (136-145); Total Bilirubin 0.4 mg/dL (0.15-1.2); Total Protein 7.1 g/dL (6.6-8.7)
[2021-04-22 16:22] LABS: Anion Gap 15.4 (5-19); Aspartate Amino Transferase 22 U/L (0-40); Potassium 4.4 mmol/L (3.5-5.1)
== END 2021-04-22 15:07 | disposition home or self-care (01) ==
PROVIDERS: PCP Family Medicine; Visit Provider Urology
DX: C67.9 Malignant neoplasm of bladder, unspecified (principal)
CPT/HCPCS: 80053; 85025

== ENCOUNTER 2021-04-23 23:16 | Inpatient (IN) | payer BC, SELFPAY ==
[2021-04-23 23:25] VITALS: BP 104/61; PULSE 125; RESP 20; TEMP 39.6; O2SAT 93; BMI 23.8
--- NOTE | 2021-04-23 23:34 | XRR_ITS ---
PROCEDURE INFORMATION: Exam: XR Abdomen Exam date and time: 04/23/2021 11:34 PM Age: 60 years old Clinical indication: Fever and nausea and vomiting; Prior surgery; Surgery type: Bladder; Additional info: Abd pain, SOB, n/v TECHNIQUE: Imaging protocol: XR of the abdomen. Views: 2 Views. Upright and supine views. COMPARISON: CT abdomen pelvis wo/w [id number] 11/19/2020 1:21 PM FINDINGS: Tubes, catheters and devices: MediPort catheter is placed via the left subclavian vein with its tip at the level of the superior vena cava. Gastrointestinal tract: Normal. No bowel dilation. Intraperitoneal space: Normal. No free air. Bones/joints: Unremarkable for age. XR/XR acute abdomen series [id number] IMPRESSION: There are no acute findings.
--- NOTE | 2021-04-23 23:34 | CTR_ITS ---
PROCEDURE INFORMATION: Exam: CT Head Without Contrast Exam date and time: 04/23/2021 11:34 PM Age: 60 years old Clinical indication: Injury or trauma; Blunt trauma (contusions or hematomas); Injury details: Fall. Abrasion to right side of forehead; Additional info: Headache TECHNIQUE: Imaging protocol: Computed tomography of the head without contrast. Radiation optimization: All CT scans at this facility use at least one of these dose optimization techniques: automated exposure control; mA and/or kV adjustment per patient size (includes targeted exams where dose is matched to clinical indication); or iterative reconstruction. COMPARISON: No relevant prior studies available. RADIATION DOSE METRICS: Total DLP (mGy-cm): 926.06 FINDINGS: Brain: There are patchy areas of hypoattenuation seen in the deep white matter of the cerebral hemispheres bilaterally compatible with mild deep white matter microvascular disease. Cerebral ventricles: No ventriculomegaly. Paranasal sinuses: Visualized sinuses are unremarkable. No fluid levels. Mastoid air cells: Visualized mastoid air cells are well aerated. Bones/joints: Unremarkable. No acute fracture. Soft tissues: Unremarkable. CT/CT head wo con* [id number] IMPRESSION: There are no acute intracranial findings. Radiation Dose CTDIVOL = (mGy): DLP = 926.06 (mGy-cm)
--- NOTE | 2021-04-23 23:35 | ED_ITS ---
HPI - COVID General: Chief Complaint: COVID symptoms Stated Complaint: N/V/D Time Seen by Provider: 04/23/21 23:31 Triage information: Has fever, cough or shortness of breath . No known COVID + exposure last 14 days History of Present Illness: HPI Narrative: This patient is a 60-year-old male who presents to the emergency department complaint nausea vomiting diarrhea. Patient states 2 days ago he had a local restaurant and had some thinks he had some bad fish states has been immediately sick at his stomach since has vomited multiple times. Patient states he tries to drink water to stay hydrated but cannot. Patient states he was so sick and vomiting that he fell today hitting his head states he did not lose consciousness. Just felt weak that he could not get up. EMS was called on he immediately had diarrhea that started at the ambulance pickup. Patient denies any cough or congestion. Will do medical evaluation treat as needed COVID 19 common symptoms: positive fever(s), body aches, nausea, vomiting and diarrhea; negative chills, non-productive cough, productive cough, dyspnea, fatigue, headache(s) or throat pain COVID 19 other sytmptoms: negative chest pain COVID Results: SARS-CoV-2 Antigen (Rapid) Negative (Negative) 04/24/21 01:08 04/24/21 Nasal/Oral Coronavirus 2019 PCR Not detected 02/10/21 11:48 02/10/21 Review of Systems General: Reports: 10 or more systems reviewed and unremarkable except in HPI and below Const: Reports: fever(s) and body aches; Denies: chills or fatigue Eyes: Denies: change in vision or blurry vision ENMT: Denies: throat pain, hoarseness or mouth pain Card: Denies: chest pain, palpitations, irregular heart rhythm, edema, swelling of feet/ankles or lightheadedness Resp: Denies: dyspnea, productive cough, non-productive cough, wheezing or pain on inspiration GI: Reports: abdominal pain, nausea, vomiting and diarrhea : Denies: flank pain, dysuria, urinary frequency, urinary urgency or urinary hesitancy Musc: Denies: neck pain, back pain, extremity pain, extremity swelling, joint pain, joint swelling, joint redness, joint warmth or limited range of motion Skin/Breast: Denies: rash, pruritus, erythema or skin tenderness Neuro: Denies: headache(s), numbness in extremities or weakness in extremities Psych: Denies: anxiety or depression PFSH ED PFSH: Medical History Bladder tumor Diverticulosis Gross hematuria Port-A-Cath in place (11/24/20) Surgical History H/O release of tendon rt arm bicep Hx of foot surgery Family History Father , at age 64 Cancer Mother , at age 73 Stroke Social History Smoking and tobacco status: never smoked Alcohol intake: current Alcohol intake frequency: holidays/special occasions only Marital status: Current occupational status: employed 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 History of recent travel: No Physical Exam Const: COMMON NORMALS: no acute distress, average body habitus, patient oriented x3, no limitations, healthy appearing, alert and well nourished HENMT: COMMON NORMALS: normocephalic, atraumatic, hearing grossly normal bilaterally, external ears normal, EAC's normal, TM's normal bilaterally, Normal external nose present, Normal nasal mucous membranes and turbinates present, moist oral mucous membranes, oropharynx normal, dentition normal and gingiva normal HEAD & SCALP: normocephalic and atraumatic NOSE: Normal external nose present and Normal nasal mucous membranes and turbinates present EXTERNAL EAR: Yes external ears normal EXTERNAL AUDITORY CANAL: EAC's normal TYMPANIC MEMBRANE: TM's normal bilaterally Neck/C-Spine: COMMON NORMALS: full ROM, no lymphadenopathy, supple, no meningeal signs, no JVD, Thyroid normal and No carotid bruits THYROID: Thyroid normal Chest: COMMONS NORMALS: normal inspection of the chest, normal palpation of entire chest wall, normal inspection of the breasts and normal palpation of the breasts Breast/axilla inspection: Yes normal inspection of the breasts BREAST/AXILLA PALPATION: Yes normal palpation of the breasts Resp: COMMON NORMALS: normal respiratory effort, No retractions, No use of accessory muscles, clear to auscultation bilaterally and percussion normal AUSCULTATION: clear to auscultation bilaterally PERCUSSION: percussion normal Cardio: COMMON NORMALS: no JVD, regular rate, regular rhythm, S1 normal heart sound present, S2 normal heart sound present, No gallops present (Cardio), No clicks present (Cardio), No murmurs present (Cardio), No rub (Cardio) and Peripheral pulses 2+ throughout RATE: regular rate RHYTHM: regular rhythm HEART SOUNDS: S1 normal heart sound present and S2 normal heart sound present PERIPHERAL PULSES: Peripheral pulses 2+ throughout GI: COMMON NORMALS: Normal to inspection, nondistended, normoactive bowel sounds present, Soft to palpation, non-tender, No hepatosplenomegaly present, no masses and no bruits PALPATION: Yes Soft to palpation and Yes No hepatosplenomegaly present : COMMON NORMALS: Yes no CVA tenderness BLADDER/KIDNEY EXAM: Yes no CVA tenderness Back/Pelvis: COMMON NORMALS: no CVA tenderness, thoracic and lumbar spine normal to inspection, no thoracic nor lumbar tenderness, thoraco-lumbar ROM normal and straight leg raise negative bilaterally Extremity: COMMON NORMALS: normal to inspection, full ROM, capillary refill normal, no joint enlargement, no clubbing, cyanosis or edema, no calf tenderness and no pedal edema Neuro: COMMON NORMALS: patient oriented x3 SENSORIUM/ORIENTATION: Yes alert MENINGEAL SIGNS: Yes no meningeal signs Course Reevaluation(s): Reevaluation #1: I did discuss with patient and family concerning for acute pyelonephritis with fever and soft blood pressures. Lactic acid is normal. Patient will be admitted to the hospital with IV antibiotics. Patient and family agree. Time: 02:07 Consultations: Consultation #1: Discussed at length with Jade. He agrees to see the patient write additional orders Time: 02:09 Vital Signs: Vital signs: Vital Signs Temperature 103.3 F H 04/23/21 23:25 Pulse Rate 125 H 04/23/21 23:25 Respiratory Rate 20 H 04/23/21 23:25 Blood Pressure 104/61 04/23/21 23:25 Pulse Oximetry 93 04/23/21 23:25 MDM - COVID MDM Narrative: Medical decision making narrative: I did discuss with patient and family concerning for acute pyelonephritis with fever and soft blood pressures. Lactic acid is normal. Patient will be admitted to the hospital with IV antibiotics. Patient and family agree. Discussed at length with Jade. He agrees to see the patient write additional orders Medical Records: Attestation: I reviewed the patient's medical records. Lab Data: Attestation: I reviewed the patient's lab results. Labs: Lab Results 04/24/21 04/24/21 04/24/21 Range/Units 00:55 00:55 00:55 WBC 11.4 H (4.0-10.0) 10^3/ uL RBC 3.22 L (4.1-5.3) 10^6/u L Hgb 9.2 L (11.7-16.6) g/dL Hct 29.0 L (42.0-52.0) % MCV 90.1 (80-94) fL MCH 28.6 (28.0-34.0) pg MCHC 31.7 (30.0-36.0) g/dL RDW 18.8 H (12.1-15.1) % Plt Count 225 (130-400) 10^3/c mm MPV 9.2 (7.4-10.4) fL Neut % (Auto) 88.0 % Lymph % (Auto) 3.7 % [place] % (Auto) 7.5 % Eos % (Auto) 0.0 % Baso % (Auto) 0.2 % Neut # (Auto) 10.00 H (1.8-7.7) 10^3/u L Lymph # (Auto) 0.4 L (0.8-4.8) 10^3/u L [place] # (Auto) 0.9 (0.2-0.9) 10^3/u L Eos # (Auto) 0.0 (0.0-0.8) 10^3/u L Baso # (Auto) 0.0 (0.0-0.1) 10^3/u L Nucleated RBC % (a uto) 0 % Nucleated RBCs # 0.0 /100WBC PT 13.80 (12.1-14.9) SECO NDS INR 1.03 (0.8-1.2) APTT 24.7 (23.9-36.7) SECO NDS Sodium 133 L (136-145) mmol/L Potassium 4.2 (3.5-5.1) mmol/L Chloride 96 L (98-107) mmol/L Carbon Dioxide 24 (22-29) mmol/L Anion Gap 17.2 (5-19) BUN 21 (8-23) mg/dL Creatinine 1.6 H (0.7-1.2) mg/dL GFR Calculation 44.0 L (90-130) mL/min Glucose 144 H (65-115) mg/dL Calculated Osmolal ity 282 L (285-295) mOsm/k g Lactic Acid (0.5-2.2) mmol/L Calcium 8.9 (8.5-10.5) mg/dL Total Bilirubin 0.9 (0.15-1.2) mg/dL AST 20 (0-40) U/L ALT 18 (0-41) U/L Alkaline Phosphata se 107 (40-130) IU/L Total Protein 7.0 (6.6-8.7) g/dL Albumin 4.4 (3.5-5.2) g/dL Globulin 2.6 (1.3-4.6) g/dL Urine Color (Yellow) Urine Appearance (CLEAR) Urine pH (5-7) Ur Specific Gravit y (1.005-1.030) Urine Protein (Negative) Urine Glucose (UA) (Normal) Urine Ketones (Negative) Urine Blood (Negative) Urine Nitrate (Negative) Urine Bilirubin (Negative) Urine Urobilinogen (Negative) mg/dL Ur Leukocyte Sunshine ase (Negative) Urine RBC (0-2) /hpf Urine WBC (0-5) /hpf Ur Squamous Epith Cells (0-5) /hpf Amorphous Sediment Urine Bacteria (NONE) /hpf Urine Mucus /hpf SARS-CoV-2 Ag (Rap id) (Negative) 04/24/21 04/24/21 04/24/21 Range/Units 00:55 01:08 01:08 WBC (4.0-10.0) 10^3/ uL RBC (4.1-5.3) 10^6/u L Hgb (11.7-16.6) g/dL Hct (42.0-52.0) % MCV (80-94) fL MCH (28.0-34.0) pg MCHC (30.0-36.0) g/dL RDW (12.1-15.1) % Plt Count (130-400) 10^3/c mm MPV (7.4-10.4) fL Neut % (Auto) % Lymph % (Auto) % [place] % (Auto) % Eos % (Auto) % Baso % (Auto) % Neut # (Auto) (1.8-7.7) 10^3/u L Lymph # (Auto) (0.8-4.8) 10^3/u L [place] # (Auto) (0.2-0.9) 10^3/u L Eos # (Auto) (0.0-0.8) 10^3/u L Baso # (Auto) (0.0-0.1) 10^3/u L Nucleated RBC % (a uto) % Nucleated RBCs # /100WBC PT (12.1-14.9) SECO NDS INR (0.8-1.2) APTT (23.9-36.7) SECO NDS Sodium (136-145) mmol/L Potassium (3.5-5.1) mmol/L Chloride (98-107) mmol/L Carbon Dioxide (22-29) mmol/L Anion Gap (5-19) BUN (8-23) mg/dL Creatinine (0.7-1.2) mg/dL GFR Calculation (90-130) mL/min Glucose (65-115) mg/dL Calculated Osmolal ity (285-295) mOsm/k g Lactic Acid 1.4 (0.5-2.2) mmol/L Calcium (8.5-10.5) mg/dL Total Bilirubin (0.15-1.2) mg/dL AST (0-40) U/L ALT (0-41) U/L Alkaline Phosphata se (40-130) IU/L Total Protein (6.6-8.7) g/dL Albumin (3.5-5.2) g/dL Globulin (1.3-4.6) g/dL Urine Color Yellow (Yellow) Urine Appearance Turbid (CLEAR) Urine pH 6.5 (5-7) Ur Specific Gravit y 1.005 (1.005-1.030) Urine Protein Trace (Negative) Urine Glucose (UA) Norm (Normal) Urine Ketones Negative (Negative) Urine Blood 2+ H (Negative) Urine Nitrate Negative (Negative) Urine Bilirubin Neg (Negative) Urine Urobilinogen Norm (Negative) mg/dL Ur Leukocyte Sunshine ase 2+ H (Negative) Urine RBC 0-4 H (0-2) /hpf Urine WBC >100 H (0-5) /hpf Ur Squamous Epith Cells 0-4 H (0-5) /hpf Amorphous Sediment Not Reportable Urine Bacteria 4+ H (NONE) /hpf Urine Mucus 3+ /hpf SARS-CoV-2 Ag (Rap id) Negative (Negative) Imaging Data: CT Head: Attestation: I personally reviewed and interpreted this imaging study as follows: Radiologist's impression: Negative for acute findings AAS: Attestation: I personally reviewed and interpreted this imaging study as follows: Radiologist's impression: Negative acute findings COVID Results: SARS-CoV-2 Antigen (Rapid) Negative (Negative) 04/24/21 01:08 04/24/21 Nasal/Oral Coronavirus 2019 PCR Not detected 02/10/21 11:48 02/10/21 Discharge Plan Discharge Patient Disposition: Placed in Observation Clinical Impression: Acute pyelonephritis, Acute dehydration, Fever, History of bladder cancer Condition: Stable Prescriptions: No Action hydrochlorothiazide 12.5 mg capsule 12.5 mg PO DAILY RF: 0 coenzyme Q10 [Co Q-10] 200 mg capsule 200 mg PO DAILY RF: 0 atorvastatin 20 mg tablet 20 mg PO DAILY RF: 0 Centrum Silver 0.4-300-250 mg-mcg-mcg tablet 1 tab PO DAILY RF: 0 levofloxacin 500 mg tablet 500 mg PO DAILY 7 Days RF: 1 Referrals: Denzel Coombs DO [Primary Care Provider] - Coding Level of Care Code ED Geriatric Nurse Assistant for Chg Fwd Exam Comprehensive
[2021-04-24] MEDS: sodium chloride 0.9% 1,000 ML 999 ML IV (00:41)
[2021-04-24] MEDS: acetaminophen 325 mg Tablet 650 MG PO ×4 (00:41→20:03)
[2021-04-24 01:05] LABS: Basophils % 0.2 %; Hemoglobin 9.2 g/dL (11.7-16.6); Lymphocytes # 0.4 10^3/uL (0.8-4.8); Lymphocytes % 3.7 %; Mean Corpuscular HGB Conc 31.7 g/dL (30.0-36.0); Mean Corpuscular Hemoglobin 28.6 pg (28.0-34.0); Mean Corpuscular Volume 90.1 fL (80-94); Mean Platelet Volume 9.2 fL (7.4-10.4); Monocytes # 0.9 10^3/uL (0.2-0.9); Monocytes % 7.5 %; Nucleated Red Blood Cells % 0 %; Platelet Count 225 10^3/cmm (130-400); Red Blood Count 3.22 10^6/uL (4.1-5.3); Red Cell Distribution Width 18.8 % (12.1-15.1); White Blood Count 11.4 10^3/uL (4.0-10.0)
[2021-04-24 01:18] LABS: INR 1.03 (0.8-1.2); Partial Thromboplastin Time 24.7 SECONDS (23.9-36.7)
[2021-04-24 01:24] LABS: Alanine Aminotransferase 18 U/L (0-41); Albumin Level 4.4 g/dL (3.5-5.2); Alkaline Phosphatase 107 IU/L (40-130); Aspartate Amino Transferase 20 U/L (0-40); Blood Urea Nitrogen 21 mg/dL (8-23); Calcium 8.9 mg/dL (8.5-10.5); Carbon Dioxide 24 mmol/L (22-29); Chloride 96 mmol/L (98-107); Globulin 2.6 g/dL (1.3-4.6); Glucose 144 mg/dL (65-115); Lactic Sepsis W/Reflex 1.4 mmol/L (0.5-2.2); Osmolality Calculated 282 mOsm/kg (285-295); Sodium 133 mmol/L (136-145); Total Bilirubin 0.9 mg/dL (0.15-1.2)
[2021-04-24 01:28] VITALS: O2SAT 98
[2021-04-24 01:38] LABS: Anion Gap 17.2 (5-19); Potassium 4.2 mmol/L (3.5-5.1)
[2021-04-24 01:49] LABS: SARS Covid-2 Antigen Negative (Negative); Urine Color Yellow (Yellow)
[2021-04-24 01:50] LABS: Add Urine Culture? Yes; Add Urine Microscopic? YES; Bacteria Urine 4+ /hpf; Bilirubin Urine Neg (Negative); Blood Urine 2+ (Negative); Glucose Urine UA Norm (Normal); Ketones Urine Negative (Negative); Leukocyte Esterase Urine 2+ (Negative); Mucus Urine 3+ /hpf; Nitrate Urine Negative (Negative); Protein Urine Trace (Negative); RBC Urine 0-4 /hpf (0-2); Specific Gravity, Urine 1.005 (1.005-1.030); Squamous Epithelial Cell Urine 0-4 /hpf (0-5); Urine Appearance Turbid (CLEAR); Urobilinogen Urine Norm (Negative); WBC Urine >100 /hpf (0-5); pH Urine 6.5 (5-7)
--- NOTE | 2021-04-24 02:22 | P.HP_ITS ---
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 The symptoms have been progressively worsening over the past few days. Initially patient attributed this to eating chicken at a local restaurant. Patient denies any urinary symptoms. No dysuria frequency or urgency. He is vaccinated. Denied any respiratory symptoms. Initial vital signs on arrival showed blood pressure 104/61, heart rate of 125, respiratory rate of 20 and a temperature of 103.3?. Oxygen saturation 93% on room air. Laboratory workup arrival showed a WBC of 11.4, hemoglobin 9.2, hematocrit 29.0 and a platelet count of 225 INR of 0 1.03. Sodium 133, potassium 4.2, chloride 96, bicarb 24, BUN 21 and creatinine of 1.6. Most recent creatinine of 1.2 on 04/22. Lactic acid 1.4. Urinalysis showed 2+ blood, 2+ leukocyte esterase, negative nitrate, over 100 wbc's , 4+ bacteria. Rapid COVID-19 antigen was negative. Imaging studies included acute abdominal series which was negative. Head CT was performed which was negative for any acute abnormality. Patient was started on Rocephin 1 g IV x1, Tylenol in ER. Noted to have chills at the time of my eval. Review of Systems General: Reports: 10 or more systems reviewed and unremarkable except in HPI and below Medications/Allergies Home Medications Medication Instructions Recorded Confirmed Last Taken Type atorvastatin 20 mg tablet 20 mg PO DAILY 11/07/20 11/24/20 11/23/20 History coenzyme Q10 200 mg capsule 200 mg PO DAILY 11/07/20 11/24/20 11/23/20 History hydrochlorothiazide 12.5 mg capsule 12.5 mg PO DAILY 11/07/20 11/24/20 11/23/20 History obpvnaua-sxf-kmvvo acid 0.4 1 tab PO DAILY 11/07/20 11/24/20 11/23/20 History mg-lycopene 300 mcg-lutein 250 mcg tablet levofloxacin 500 mg PO DAILY 7 Days tab 11/16/20 11/24/20 11/23/20 Rx Allergies Allergy/AdvReac Type Severity Reaction Status Date / Time No Known Allergies Allergy Verified 11/21/20 10:50 PFSH Acute PFSH: Medical History Bladder tumor Diverticulosis Gross hematuria Port-A-Cath in place (11/24/20) Surgical History H/O release of tendon rt arm bicep Hx of foot surgery Family History Father , at age 64 Cancer Mother , at age 73 Stroke Social History Smoking and tobacco status: never smoked Alcohol intake: current Alcohol intake frequency: holidays/special occasions only Marital status: Current occupational status: employed 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 History of recent travel: No Vitals/I&O/Wt Last Vital Signs Temp 103.3 F H 04/23/21 23:25 Pulse 125 H 04/23/21 23:25 Resp 20 H 04/23/21 23:25 BP 104/61 04/23/21 23:25 Pulse Ox 93 04/23/21 23:25 Weight last 48 hrs Weight 73.028 kg Physical Exam Narrative: EXAM NARRATIVE: General-alert awake and oriented x3 , mild distress from chills HEENT- grossly unremarkable CVS-regular rate rhythm no murmurs Chest -clear to auscultation bilaterally Abdomen- soft nontender nondistended, no CVA tenderness Extremities-no edema Data : 04/24/21 00:55 04/24/21 00:55 Micro: Microbiology 04/24/21 00:40 Blood Culture - Preliminary Blood SPECIMEN COLLECTED 04/24/21 00:55 Blood Culture - Preliminary Blood SPECIMEN COLLECTED A&P Assessment and plan (1) Sepsis due to urinary tract infection: UA - Suspicious for infectious process Rocephin 1g IV x1 in Er Ordered 2g IV daily Follow up on urine and blood culture Tyelnol prn for fever Zofran PRN for nausea If persistent fever would consider CT abd/pelvis - r/o abscess Status: Acute (2) Acute renal failure: Cretinine 1.6 IVF started Renal dosing Repeat BMP in am Status: Acute (3) Bladder cancer: Following with oncology S/p resection / inocencia bladder reconstruction Status: Acute Qualifiers: Bladder location: overlapping sites Qualified Code(s): C67.8 - Malignant neoplasm of overlapping sites of bladder (4) DVT prophylaxis: Heparin 5000 units Q8hr Monitor for hematuria Status: Acute Attestations Medical Necessity Statement*: Will likely require over2 midnight stay in hospital for evaluation and treatment of sepsis likely from urinary source. Time Spent in Patient Care: Greater than 35 minutes (>than 50% of time spent in counselling and/or direct pt care on unit) . Coding Level of Care Code Acute Start Up Specialist for g Fwd Diagnoses Sepsis due to urinary tract infection A41.9; N39.0 Acute renal failure N17.9 Bladder cancer C67.8 Bladder location: overlapping sites DVT prophylaxis Z29.9
[2021-04-24] MEDS: cefTRIAXone 1,000 MG in sodium chloride 0.9% (plus) 50 ML 100 MG IV (02:58)
[2021-04-24] MEDS: sodium chloride 0.9% 500 ML IV (02:59)
[2021-04-24 03:59] LABS: Lactic Sepsis W/Reflex 0.7 mmol/L (0.5-2.2)
--- NOTE | 2021-04-24 07:40 | CT_ITS ---
WS: [id number] CT ABDOMEN PELVIS TECHNIQUE: Noncontrast CT of the abdomen and pelvis with coronal and sagittal reformatted images. CLINICAL INFORMATION: UTI, fever COMPARISON: November 19, 2020 DLP: 872.[address] scans at [facility] use at least one of these dose optimization techniques: automat ed exposure control; mA and/or kV adjustment per patient size (includes targeted exams where dose is matched to clinical indication); or iterative reconstruction. FINDINGS: Mild right hydronephrosis with pelvocaliectasis and ureterectasis. Perinephric stranding about the ri ght kidney. This is new since the prior examination. No obstructing renal or ureteral calculi. Right ureter appears dilated down to the UVJ with increased density at the right UVJ. Previously described right eccentric bladder mass appears to have been resected with ureteroneocystostomy. Lobulated urine distended postoperative bladder. Mild left perinephric edema. No left hydronephrosis. Mild left ureterectasis with mild induration abo ut the left kidney and left ureter. Correlation for ascending UTI. Increased density likely postoperative changes in the distal left uret er which appears reimplanted along the ventral bladder adjacent to the right UVJ. Noncontrast liver is normal. Normal noncontrast gallbladder. Small esophageal hiatal hernia. Noncontr ast spleen is normal. Normal noncontrast pancreas. Adrenal glands are normal. Lung bases are well aer ated. Normal caliber abdominal aorta. Aortic calcification. Normal sigmoid colon. No abdominal or pel victor manuel lymphadenopathy. CT/CT kidney stone [id number] IMPRESSION: 1. Interval postoperative changes ureteroneocystostomy with resection of the b ladder tumor and appearant ureteral reimplantation. 2. Mild disc right hydronephrosis with right ureterectasis. Ureter is dilated to the UVJ with apparent obstruction at the UVJ. Increased density at the UVJ m easuring 1.7 cm may represent postoperative hematoma/edema or possibly residual tumor. 3. Mild left ureterectasis with perinephric stranding about the left kidney. P ostoperative changes involving the distal left ureter which implants on the ward tral bladder. 4. Recommend correlation for ascending urinary tract infection. 5. No other significant changes from previous.
[2021-04-24] MEDS: pantoprazole DR 40 mg Tablet PO (08:56)
[2021-04-24] MEDS: cefepime 2,000 MG in sodium chloride 0.9% (plus) 50 ML 100 MG IV ×2 (08:56→20:20)
[2021-04-24] MEDS: vancomycin 1,250 MG/250 ML PIGGYBACK 200 MG IV (10:07)
--- NOTE | 2021-04-24 11:09 | PM.PN ---
Subjective Subjective: Interval history: Patient seen and history and physical reviewed. Reports he feels a little bit better than earlier. Medications: Reviewed: Yes Vitals/I&O/Wt Last Vital Signs Temp 103.3 F H 04/23/21 23:25 Pulse 125 H 04/23/21 23:25 Resp 20 H 04/23/21 23:25 BP 104/61 04/23/21 23:25 Pulse Ox 98 04/24/21 01:28 04/23/21 04/24/21 04/24/21 22:59 06:59 14:59 Intake Total 50 / 50 Balance 50 / 50 Weight last 48 hrs Weight 73.028 kg Physical Exam Narrative: EXAM NARRATIVE: General exam is a white male with tachycardia and occasional shaking chills. Neck is supple no lymphadenopathy thyromegaly Cardiovascular tachycardic, no murmur Lungs clear Abdomen is soft with positive bowel sounds Extremities no cyanosis clubbing or edema Data : 04/24/21 00:55 04/24/21 00:55 Micro: Microbiology 04/24/21 00:40 Blood Culture - Preliminary Blood SPECIMEN COLLECTED 04/24/21 00:55 Blood Culture - Preliminary Blood SPECIMEN COLLECTED A&P Assessment and plan (1) Febrile urinary tract infection: Change antibiotic to cefepime, vancomycin High risk secondary to postsurgical state after cystectomy, neobladder, ureter reimplantation Await urine and blood cultures. It would not surprise me at all if he is bacteremic I have ordered a CT renal protocol which demonstrates UVJ obstruction on the right. Urology consultation will be obtained. They have reviewed the films and recommend Titpon which will be placed. Status: Acute (2) Acute renal failure: Hydration Repeat BMP in the morning Avoid renal toxic medication Status: Acute (3) Anemia: Continue to follow closely Status: Acute (4) History of bladder cancer: Managed at [facility] Status: Acute (5) Sepsis due to urinary tract infection: Vital signs normalizing. Lactate not elevated. Overall this appears to be resolving. Status: Acute Additional A&P Information History of hypertension History of hyperlipidemia Full code Heparin for DVT prophylaxis Attestations Medical Necessity Statement*: Patient was severely ill on admission with temperature of 103.3, heart rate of 125 and evidence of sepsis. He will be changed to a regular admission. Not appropriate for observation considering these factors as well as this complicated UTI and patient with cystectomy, ureter reimplantation, neobladder. Coding Level of Care Code Acute Pipe Organ Builder for Chg Fwd Diagnoses Febrile urinary tract infection N39.0 Acute renal failure N17.9 Anemia D64.9 History of bladder cancer Z85.51 Sepsis due to urinary tract infection A41.9; N39.0
[2021-04-24 12:00] VITALS: BP 102/64; BP 107/69; PULSE 102; RESP 15; RESP 16; TEMP 37; O2SAT 95; O2SAT 98
--- NOTE | 2021-04-24 13:29 | PM.CONSULT ---
Providers/Reason For Consult Consulting Physician/Specialty*: Mathews/Urology Reason for Consult*: Status post neobladder reconstruction with radical cystoprostatectomy January 2021. 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 He underwent extensive TURBT proving this. Ultimately decided on neoadjuvant chemotherapy followed by cystoprostatectomy and neobladder construction at [facility] sometime around January 2021. Presented this hospital stay on 04/24/2021 early a.m. with complaints of nausea and vomiting, weakness, could not walk, and malaise that had begun approximately 3 days prior. No overt change in his baseline voiding symptoms (post orthotopic, neobladder). Work-up in the emergency department showed 4+ bacteria, >100 WBCs per high-powered field, normal CT scan,. Abdominal CT scan a full neobladder, mild ureterectasis right greater than sign left with some perirenal inflammatory fat stranding. It was difficult to trace the ureters all the way to the neobladder but it appears that the right drains into a ileal chimney in the left drains close to the same area. There are couple areas of increased density one that appears to be in the left distal ureteral area and one near the junction of the right. I am not sure if these represent true residual ureters or possibly ureteral interposition's. I did review the films personally and discussed the results with Dr. Boyce as well as Dr. Radames Wilkinson radiology. Radiology had not heard that the patient had a neobladder. Review of Systems Const: Reports: fever(s) and malaise Eyes: Denies: change in vision ENMT: Denies: hoarseness Card: Denies: chest pain or palpitations Resp: Denies: productive cough GI: Reports: abdominal pain (Mild lower abdominal pain for several days prior to admission) : Denies: flank pain, difficulty urinating or dysuria Musc: Denies: joint redness Skin/Breast: Denies: rash Neuro: Reports: difficulty walking and confusion Psych: Denies: depression Endo: Denies: flushing Rogelio/Lymph: Denies: easy bruising or easy bleeding All/Imm: Denies: urticaria or acute wheezing Meds/Allergies Home Medications and Allergies Home Medications Medication Instructions Recorded Confirmed Last Taken Type atorvastatin 20 mg tablet 20 mg PO QAM 11/07/20 04/24/21 11/23/20 History coenzyme Q10 200 mg capsule 200 mg PO QAM 11/07/20 04/24/21 11/23/20 History yvwpddta-nzl-qkzys acid 0.4 1 tab PO QAM 11/07/20 04/24/21 11/23/20 History mg-lycopene 300 mcg-lutein 250 mcg tablet Probiotic 1 cap PO DAILY 04/24/21 04/24/21 Unknown History tadalafil [Cialis] 2.5 mg PO DAILY 04/24/21 04/24/21 Unknown History Allergies Allergy/AdvReac Type Severity Reaction Status Date / Time No Known Allergies Allergy Verified 04/24/21 08:43 Current Medications Current Medications Generic Name Dose Route Start Last Admin Trade Name Freq PRN Reason Stop Dose Admin Cefepime HCl 2,000 mg/ Sodium 50 mls @ 100 mls/hr 04/24/21 08:30 04/24/21 10:08 Chloride IV Infused Q12H MIRZA Infusion Protocol Vancomycin/PEG/NADA/Lysine/Water 1,250 mg in 250 mls @ 200 mls/hr 04/24/21 09:00 04/24/21 12:17 Vancocin IV Infused Q24H MIRZA Infusion Pantoprazole Sodium 40 mg 04/24/21 09:00 04/24/21 08:[address] 40 Mg Tablet PO 40 mg DAILY MIRZA Administration PFSH Acute PFSH: Medical History Bladder tumor Diverticulosis Gross hematuria Port-A-Cath in place (11/24/20) Surgical History H/O release of tendon rt arm bicep Hx of foot surgery Status post urinary bladder replacement Family History Father , at age 64 Cancer Mother , at age 73 Stroke Social History Smoking and tobacco status: never smoked Alcohol intake: current Alcohol intake frequency: holidays/special occasions only Marital status: Current occupational status: employed 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 History of recent travel: No Vitals/I&O/Wt Last Vital Signs Temp 103.3 F H 04/23/21 23:25 Pulse 125 H 04/23/21 23:25 Resp 15 04/24/21 12:00 BP 102/64 04/24/21 12:00 Pulse Ox 95 04/24/21 12:00 04/23/21 04/24/21 04/24/21 22:59 06:59 14:59 Intake Total 1849 Balance 1849 Weight last 48 hrs Weight 161 lb Physical Exam Const: COMMON NORMALS: no acute distress, alert and well nourished GENERAL APPEARANCE: well kempt and well developed ORIENTATION/CONSCIOUSNESS: not confused Neck/C-Spine: COMMON NORMALS: full ROM Resp: COMMON NORMALS: normal respiratory effort EFFORT & INSPECTION: No labored and No Actively coughing : OTHER: Catheter draining clear yellow urine Neuro: SENSORIUM/ORIENTATION: Yes alert Psych: COMMON NORMALS: mental status grossly normal APPEARANCE: Yes grossly normal and Yes well kempt ATTITUDE: Yes calm and Yes engaged Skin: COMMON NORMALS: no rashes or lesions noted and no jaundice GENERAL SKIN EXAM: no rashes or lesions noted Urinary Catheter Management^: Tipton: Cath Placed During This Visit: yes Urinary Catheter Date of Insertion: 04/24/21 Urinary Catheter Time of Insertion: 12:50 Data Micro: Micro: Microbiology 04/24/21 00:40 Blood Culture - Pr eliminary Blood SPECIMEN [facility] 04/24/21 00:55 Blood Culture - Pr eliminary Blood SPECIMEN [facility] A&P Assessment and plan (1) Status post urinary bladder replacement: Orthotopic ileo-neobladder. Status: Chronic (2) History of bladder cancer: High-grade volume high-grade muscle invasive TCCA status post radical cystoprostatectomy and orthotopic neobladder construction at the [facility] in approximately January 2021. Status: Acute (3) Acute pyelonephritis: Status: Acute (4) Incomplete bladder emptying: Recommend maintaining Tipton catheter for now. Will need bladder scan PVR checks in and out catheterization as needed to confirm on outpatient basis after recovery from infection. Status: Acute Consult Attestations Medical Necessity Statement: See attending Coding Level of Care Code Acute Progress Man for Navi Maya Diagnoses Status post urinary bladder replacement Z96.0 History of bladder cancer Z85.51 Acute pyelonephritis N10 Incomplete bladder emptying R33.9
[2021-04-24 14:00] VITALS: TEMP 39
[2021-04-24] MEDS: sodium chloride 0.9% 1,000 ML 125 ML IV ×2 (14:05→23:46)
[2021-04-24 16:00] VITALS: BP 97/59; PULSE 114; RESP 16; TEMP 39.3; O2SAT 96
[2021-04-24] MEDS: simethicone 80 mg Chew PO (20:19)
[2021-04-24 21:00] VITALS: BP 114/73; PULSE 118; RESP 20; TEMP 38.9; O2SAT 94
--- NOTE | 2021-04-24 22:03 | XRR_ITS ---
PROCEDURE INFORMATION: Exam: XR Abdomen Exam date and time: 04/24/2021 10:03 PM Age: 60 years old Clinical indication: Nausea and vomiting; Abdominal pain; Generalized; Prior surgery; Additional info: Abd pain TECHNIQUE: Imaging protocol: XR of the abdomen. Views: Frontal supine view of the abdomen. 1 View. COMPARISON: CR (ABDOMEN, ) 04/23/2021 11:42 PM FINDINGS: Tubes, catheters and devices: Surgical clips are seen projecting over the pelvis bilaterally. Gastrointestinal tract: Normal. No bowel dilation. Bones/joints: Degenerative changes of the spine and hip joints noted. No acute fracture or dislocation. XR/XR KUB portable 18209 IMPRESSION: Nonobstructive bowel gas pattern.
[2021-04-24 23:40] VITALS: BP 99/63; PULSE 92; RESP 18; TEMP 37.1; O2SAT 96
[2021-04-25] VITALS (7 sets, daily range): BP systolic 96–135; BP diastolic 63–72; PULSE 68–103; RESP 16–19; TEMP 36.6–37.7; O2SAT 17–98
[2021-04-25 03:17] LABS: Basophils % 0.2 %; Eosinophils % 0.4 %; Hematocrit 25.6 % (42.0-52.0); Hemoglobin 7.8 g/dL (11.7-16.6); Lymphocytes # 0.6 10^3/uL (0.8-4.8); Lymphocytes % 10.1 %; Mean Corpuscular HGB Conc 30.5 g/dL (30.0-36.0); Mean Corpuscular Hemoglobin 28.2 pg (28.0-34.0); Mean Corpuscular Volume 92.4 fL (80-94); Mean Platelet Volume 9.6 fL (7.4-10.4); Monocytes # 0.6 10^3/uL (0.2-0.9); Monocytes % 11.5 %; Neutrophils % 77.4 %; Nucleated Red Blood Cells % 0 %; Platelet Count 178 10^3/cmm (130-400); Red Blood Count 2.77 10^6/uL (4.1-5.3); White Blood Count 5.6 10^3/uL (4.0-10.0)
[2021-04-25 03:49] LABS: Alanine Aminotransferase 17 U/L (0-41); Albumin Level 3.4 g/dL (3.5-5.2); Alkaline Phosphatase 80 IU/L (40-130); Anion Gap 14.2 (5-19); Aspartate Amino Transferase 21 U/L (0-40); Blood Urea Nitrogen 16 mg/dL (8-23); Carbon Dioxide 23 mmol/L (22-29); Chloride 104 mmol/L (98-107); Globulin 2.6 g/dL (1.3-4.6); Glomerular Filtration Rate 61.3 mL/min (90-130); Glucose 108 mg/dL (65-115); Osmolality Calculated 286 mOsm/kg (285-295); Potassium 4.2 mmol/L (3.5-5.1); Sodium 137 mmol/L (136-145); Total Bilirubin 0.6 mg/dL (0.15-1.2)
--- NOTE | 2021-04-25 07:20 | P.PN_ITS ---
Subjective Subjective: Interval history: Feeling much better. Reports his catheter had a mucous plug last night, but this was flushed and had good urine output after this. Medications: Reviewed: Yes Vitals/I&O/Wt Last Vital Signs Temp 98.9 F 04/25/21 03:55 Pulse 83 04/25/21 03:55 Resp 16 04/25/21 03:55 BP 96/64 04/25/21 03:55 Pulse Ox 98 04/25/21 03:55 04/24/21 04/25/21 04/25/21 22:59 06:59 14:59 Intake Total 1050 / 2900 Output Total 1000 / 1000 1925 / 2925 Balance 50 / 1900 -1925 / -25 Weight last 48 hrs Weight 81.057 kg Weight 78.608 kg Weight 73.028 kg Physical Exam Narrative: EXAM NARRATIVE: General exam is a white male no distress this morning Neck is supple no lymphadenopathy thyromegaly Cardiovascular tachycardic, no murmur Lungs clear Abdomen is soft with positive bowel sounds Extremities no cyanosis clubbing or edema Urinary Catheter Management^: Tipton: Cath Placed During This Visit: yes Reason for Continuing Indwelling Catheter: Accurate Measurement of Urinary Output in Critically Ill Patients Urinary Catheter Date of Insertion: 04/24/21 Urinary Catheter Time of Insertion: 12:50 Data : 04/25/21 02:43 04/25/21 02:43 Micro: Microbiology 04/24/21 00:40 Blood Culture - Preliminary Blood NEGATIVE TO DATE 04/24/21 00:55 Blood Culture - Preliminary Blood NEGATIVE TO DATE A&P Assessment and plan (1) Febrile urinary tract infection: Continue cefepime, vancomycin High risk secondary to postsurgical state after cystectomy, neobladder, ureter reimplantation Await urine and blood cultures. It would not surprise me at all if he is bacteremic I have ordered a CT renal protocol which demonstrates UVJ obstruction on the right. Urology consultation was obtained. They have reviewed the films and recommend Tipton which was placed. No surgical intervention needed at this time. Status: Acute (2) Acute renal failure: Back to baseline Reduce fluids Repeat BMP in the morning Avoid renal toxic medication Status: Acute (3) Anemia: Drifted down likely from dilution Anemia panel Status: Acute (4) History of bladder cancer: Managed at [facility] Status: Acute (5) Sepsis due to urinary tract infection: Vital signs normalizing. Lactate not elevated. Overall this appears to be resolving. Status: Acute Additional A&P Information History of hypertension History of hyperlipidemia Full code Heparin for DVT prophylaxis Attestations Medical Necessity Statement*: Needs continued hospital stay for IV antibiotics secondary to complex febrile UTI Coding Level of Care Code Acute Casting And Curing Operator for Chg Fwd Diagnoses Febrile urinary tract infection N39.0 Acute renal failure N17.9 Anemia D64.9 History of bladder cancer Z85.51 Sepsis due to urinary tract infection A41.9; N39.0
[2021-04-25] MEDS: sodium chloride 0.9% 1,000 ML 75 ML IV ×2 (07:53→20:54)
[2021-04-25] MEDS: cefepime 2,000 MG in sodium chloride 0.9% (plus) 50 ML 100 MG IV ×2 (07:54→20:53)
--- NOTE | 2021-04-25 08:59 | PM.PN ---
Subjective Subjective: Interval history: Urology follow-up: Hospital day #2 T-max last night was 103.3. Afebrile this morning. White count has decreased. Creatinine improved Overall feels better. Catheter became occluded with mucus last night required manual irrigation. He had about 750 cc in his neobladder when drained. We will train on catheter irrigation and supplies to be provided so that when he goes home with a catheter in place they can manage that. Plan will be to do a voiding trial in [facility] instruction midweek next week to confirm is adequately emptying. The CT scan findings implied otherwise but that may be a fluke. He thinks that he was doing well when he was undergoing voiding trials with the suprapubic tube postoperatively prior to its removal at 6 weeks Medications: Reviewed: Yes Vitals/I&O/Wt Last Vital Signs Temp 98.9 F 04/25/21 03:55 Pulse 83 04/25/21 03:55 Resp 16 04/25/21 03:55 BP 96/64 04/25/21 03:55 Pulse Ox 98 04/25/21 03:55 04/24/21 04/25/21 04/25/21 22:59 06:59 14:59 Intake Total 1050 / 2900 1050 / 1050 Output Total 1000 / 1000 1925 / 2925 Balance 50 / 1900 -1925 / -25 1050 / 1050 Weight last 48 hrs Weight 178 lb 11.2 oz Weight 173 lb 4.8 oz Weight 161 lb Physical Exam Narrative: EXAM NARRATIVE: Alert oriented no acute distress No labored respiration Tipton draining clear urine Mental status is clear. Urinary Catheter Management^: Tipton: Cath Placed During This Visit: yes Reason for Continuing Indwelling Catheter: Accurate Measurement of Urinary Output in Critically Ill Patients Urinary Catheter Date of Insertion: 04/24/21 Urinary Catheter Time of Insertion: 12:50 Data : 04/25/21 02:43 04/25/21 02:43 Micro: Microbiology 04/24/21 00:40 Blood Culture - Preliminary Blood NEGATIVE TO DATE 04/24/21 00:55 Blood Culture - Preliminary Blood NEGATIVE TO DATE A&P Assessment and plan (1) Status post urinary bladder replacement: Orthotopic ileo-neobladder. Status: Chronic (2) History of bladder cancer: High-grade volume high-grade muscle invasive TCCA status post radical cystoprostatectomy and orthotopic neobladder construction at the [facility] approximately January 2021. Status: Acute (3) Acute pyelonephritis: Clinically improving Imaging does not support the idea of obstructive pyelonephritis at this time. Images will be sent to [facility] for review with his surgeon Status: Acute (4) Incomplete bladder emptying: Recommend maintaining Tipton catheter for now. Will need bladder scan PVR checks in and out catheterization as needed to confirm on outpatient basis after recovery from infection. Status: Acute Attestations Medical Necessity Statement*: Ending Coding Level of Care Code Acute Hand Heel Seat Fitter for Chg Fwd Diagnoses Status post urinary bladder replacement Z96.0 History of bladder cancer Z85.51 Acute pyelonephritis N10 Incomplete bladder emptying R33.9
[2021-04-25] MEDS: vancomycin 1,250 MG/250 ML PIGGYBACK 200 MG IV (09:53)
[2021-04-25] MEDS: pantoprazole DR 40 mg Tablet PO (09:53)
[2021-04-25 12:13] LABS: Ferritin 451 ng/mL (30-400); Iron 8 ug/dL (59-158); Percent Saturation 3.8 % (20-50); Total Iron Binding Capacity 207 mcg/dl; Unsaturated Iron Binding 199 ug/dL (112-347); Vitamin B12 706 pg/mL (232-1245)
[2021-04-25 12:14] LABS: Folate Level 13.4 ng/mL (4.5-32.2)
[2021-04-26] VITALS: BP 104/62; PULSE 94; RESP 12; TEMP 37.5; O2SAT 91
[2021-04-26 03:04] LABS: Basophils % 0.3 %; Eosinophils # 0.1 10^3/uL (0.0-0.8); Eosinophils % 1.7 %; Hematocrit 23.8 % (42.0-52.0); Hemoglobin 7.3 g/dL (11.7-16.6); Lymphocytes # 0.4 10^3/uL (0.8-4.8); Mean Corpuscular HGB Conc 30.7 g/dL (30.0-36.0); Mean Corpuscular Volume 91.2 fL (80-94); Mean Platelet Volume 10.2 fL (7.4-10.4); Monocytes # 0.3 10^3/uL (0.2-0.9); Monocytes % 10.3 %; Neutrophils # 2.15 10^3/uL (1.8-7.7); Neutrophils % 73.7 %; Nucleated Red Blood Cells % 0 %; Platelet Count 158 10^3/cmm (130-400); Red Blood Count 2.61 10^6/uL (4.1-5.3); Red Cell Distribution Width 18.5 % (12.1-15.1); White Blood Count 2.9 10^3/uL (4.0-10.0)
[2021-04-26 03:29] LABS: Alanine Aminotransferase 63 U/L (0-41); Albumin Level 3.2 g/dL (3.5-5.2); Alkaline Phosphatase 110 IU/L (40-130); Anion Gap 13.8 (5-19); Aspartate Amino Transferase 73 U/L (0-40); Blood Urea Nitrogen 12 mg/dL (8-23); Carbon Dioxide 24 mmol/L (22-29); Chloride 101 mmol/L (98-107); Glomerular Filtration Rate 75.7 mL/min (90-130); Glucose 116 mg/dL (65-115); Osmolality Calculated 281 mOsm/kg (285-295); Potassium 3.8 mmol/L (3.5-5.1); Sodium 135 mmol/L (136-145); Total Bilirubin 0.3 mg/dL (0.15-1.2); Total Protein 6.2 g/dL (6.6-8.7)
[2021-04-26 03:39] VITALS: BP 91/54; PULSE 97; RESP 12; TEMP 37.4; O2SAT 95
[2021-04-26 06:00] VITALS: PULSE 82
[2021-04-26 08:00] VITALS: BP 121/80; PULSE 91; RESP 18; TEMP 36.8; O2SAT 97
[2021-04-26] MEDS: cefepime 2,000 MG in sodium chloride 0.9% (plus) 50 ML 100 MG IV (08:36)
--- NOTE | 2021-04-26 09:28 | P.DS_ITS ---
Discharge Providers Date of Admission: 04/24/21 11:15 Date of Discharge: April 26, 2021 Attending Provider at Admission: Yen Robbins Attending Provider at Discharge: Dave Boyce MD Primary Care Provider: Denzel Coombs DO Diagnoses at Discharge Discharge Diagnosis (1) Status post urinary bladder replacement: Status: Chronic (2) History of bladder cancer: Status: Acute (3) Acute pyelonephritis: Status: Acute (4) Incomplete bladder emptying: Status: Acute Reason for Visit Reason for Visit: d,n,v Hospital Course Hospital Course Juan Carlos is a 60-year-old white male with history of bladder cancer, with neobladder surgery approximately January, presented to the hospital with fever, complex UTI, and sepsis. He was placed on broad-spectrum antibiotics and blood and urine cultures were obtained. Acute kidney insufficiency was also noted. Fluids were initiated. CT of abdomen and pelvis renal protocol demonstrated concern of obstruction in the right system. Urology was consulted, and believe that this current point in time this could be treated medically. Tipton catheter was placed to decompress bladder. He rapidly improved in the hospital and renal function returned to normal. Prior to discharge she was afebrile for 24 hours. Blood culture was negative at time of discharge, after 2 reads. Urine culture grew Klebsiella sensitive to Cipro. Anemia was also identified in the hospital with no evidence of blood loss. Laboratory indicated this was iron deficiency anemia so infusion of iron was given April 26. At discharge she appeared stable able to ambulate around the room without difficulty. It was thought he could go home and get close follow-up with his primary care provider in several days with repeat blood count at that time. He will follow-up with urology as well in approximately 1 week. Physical Exam Narrative: EXAM NARRATIVE: General exam no apparent distress Neck is supple no lymphadenopathy or thyromegaly Cardiovascular regular rate and rhythm without murmur Lungs clear Abdomen is soft, positive bowel sounds Tipton Extremities no cyanosis clubbing or edema Urinary Catheter Management^: Tipton: Cath Placed During This Visit: yes Reason for Continuing Indwelling Catheter: Acute Urinary Retention or Obstruction Urinary Catheter Date of Insertion: 04/24/21 Urinary Catheter Time of Insertion: 12:50 Discharge Data Data Completed and Pending: Completed Studies During Hospitalization Category Date Time Status CT head wo con* 7 3870 Stat Cat Scan 04/23/21 23:[address] kidney stone 7 4176 Urgent Cat Scan 04/24/21 07:40 Completed XR KUB portable 7 [id number] Routine Exams 04/24/21 22:03 Completed XR acute abdomen series [id number] Stat Exams 04/23/21 23:34 Completed Pending at discharge Category Date Time Status Blood Culture Sta t Lab 04/23/21 23:35 Results Complete Blood Co unt w/Auto AM LABS Lab 04/27/21 04:00 Ordered Comprehensive Met abolic Panel AM LA BS Lab 04/27/21 04:00 Ordered Immunochemical Fe mohamud OCB Routine Lab 04/25/21 07:22 Uncollected Urine Culture Sta t Lab 04/24/21 01:08 Results Labs from last 24 hours 04/26/21 04/26/21 04/25/21 02:20 02:20 02:43 WBC 2.9 L RBC 2.61 L Hgb 7.3 L Hct 23.8 L MCV 91.2 MCH 28.0 MCHC 30.7 RDW 18.5 H Plt Count 158 MPV 10.2 Neut % (Auto) 73.7 Lymph % (Auto) 14.0 Shackelford % (Auto) 10.3 Eos % (Auto) 1.7 Baso % (Auto) 0.3 Neut # (Auto) 2.15 Lymph # (Auto) 0.4 L Shackelford # (Auto) 0.3 Eos # (Auto) 0.1 Baso # (Auto) 0.0 Nucleated RBC % (a uto) 0 Nucleated RBCs # 0.0 Sodium 135 L Potassium 3.8 Chloride 101 Carbon Dioxide 24 Anion Gap 13.8 BUN 12 Creatinine 1.0 GFR Calculation 75.7 L Glucose 116 H Calculated Osmolal ity 281 L Calcium 8.0 L Iron TIBC % Saturation Unsat Iron Binding Ferritin Total Bilirubin 0.3 AST 73 H ALT 63 H Alkaline Phosphata se 110 Total Protein 6.2 L Albumin 3.2 L Globulin 3.0 Vitamin B12 Folate 13.4 SARS-CoV-2 Ag (Rap id) 04/25/21 04/24/21 02:43 01:08 WBC RBC Hgb Hct MCV MCH MCHC RDW Plt Count MPV Neut % (Auto) Lymph % (Auto) Shackelford % (Auto) Eos % (Auto) Baso % (Auto) Neut # (Auto) Lymph # (Auto) Shackelford # (Auto) Eos # (Auto) Baso # (Auto) Nucleated RBC % (a uto) Nucleated RBCs # Sodium Potassium Chloride Carbon Dioxide Anion Gap BUN Creatinine GFR Calculation Glucose Calculated Osmolal ity Calcium Iron 8 L TIBC 207 % Saturation 3.8 L Unsat Iron Binding 199 Ferritin 451 H Total Bilirubin AST ALT Alkaline Phosphata se Total Protein Albumin Globulin Vitamin B12 706 Folate SARS-CoV-2 Ag (Rap id) Negative Vitals: Last Vital Signs Temp 98.2 F 04/26/21 08:00 Pulse 91 04/26/21 08:00 Resp 18 04/26/21 08:00 BP 121/80 04/26/21 08:00 Pulse Ox 97 04/26/21 08:00 Discharge Plan Discharge Patient Disposition: Home Condition: Stable Prescriptions: New pantoprazole 40 mg Tablet,Delayed Release (Dr/Ec) 40 mg PO DAILY Qty: 30 RF: 0 ciprofloxacin HCl [Cipro] 500 mg tablet 500 mg PO BID Qty: 20 RF: 0 Continued coenzyme Q10 [Co Q-10] 200 mg capsule 200 mg PO QAM RF: 0 atorvastatin 20 mg tablet 20 mg PO QAM RF: 0 Centrum Silver 0.4-300-250 mg-mcg-mcg tablet 1 tab PO QAM RF: 0 Cialis 2.5 mg Tablet 2.5 mg PO DAILY RF: 0 Probiotic 1 cap PO DAILY RF: 0 Discharge Orders: Discharge Order (Routine); Ordered 04/26/21 Ordered By: Dave Boyce Referrals: Devon Mathews MD [Physician] - 04/28/21 (Voiding trial, [facility] instruction, Late afternoon appointment on 04/28 or 04/29/2021) Denzel Coombs DO [Primary Care Provider] - 4-7 days (CBC, BMP on follow-up) Patient Instructions: Opioid Safety Activity Restrictions/Additional Instructions: Tipton to to stay in at discharge. Please give instructions on care. May discharge after Venofer Discharge Attestations Time Spent in Discharge Care*: greater than 30 min Quality Metrics Clinical Quality Measures During this hospital stay, did patient experience: None Coding Level of Care Code Acute Chg FW DC note Diagnoses Status post urinary bladder replacement Z96.0 History of bladder cancer Z85.51 Acute pyelonephritis N10 Incomplete bladder emptying R33.9
[2021-04-26] MEDS: pantoprazole DR 40 mg Tablet PO (09:47)
[2021-04-26] MEDS: vancomycin 1,250 MG/250 ML PIGGYBACK 200 MG IV (09:47)
[2021-04-26] MEDS: iron sucrose 500 MG in sodium chloride 0.9% 250 ML 68.75 MG IV (11:13)
[2021-04-26 12:00] VITALS: BP 106/74; PULSE 83; RESP 18; TEMP 37; O2SAT 96
--- NOTE | 2021-04-26 16:46 | PC.NURSE ---
this nurse went over discharge instructions, went over martin irrigation if martin becomes occluded with mucus. pt verbalized understanding. leg bag and extra martin bag given to pt for night and day uses, pt verbalized understanding on how to use both urinary bags, along with irrigation. iv removed with no issues, pt had no questions or concerns at this time, pt understands if he has any questions where to call.
[2021-04-26 16:54] VITALS: BP 106/74; PULSE 83; RESP 18; TEMP 37; O2SAT 96
== END 2021-04-26 16:55 | disposition home or self-care (01) | DRG 872 ==
LOC: ER 04-24 07:14 → MEDSURG 04-24 10:52
PROVIDERS: Admitting Provider Hospitalist; Emergency Provider Emergency Medicine; PCP Family Medicine; Visit Provider Internal Medicine
DX: A41.9 Sepsis, unspecified organism (principal); N39.0 Urinary tract infection, site not specified; N17.9 Acute kidney failure, unspecified; N10 Acute pyelonephritis; C67.8 Malignant neoplasm of overlapping sites of bladder; I10 Essential (primary) hypertension; E78.5 Hyperlipidemia, unspecified; Z79.899 Other long term (current) drug therapy; Z95.828 Presence of other vascular implants and grafts; K57.90 Diverticulosis of intestine, part unspecified, without perforation or abscess without bleeding; N13.5 Crossing vessel and stricture of ureter without hydronephrosis; D50.9 Iron deficiency anemia, unspecified; Z96.0 Presence of urogenital implants; R33.9 Retention of urine, unspecified; B96.1 Klebsiella pneumoniae [K. pneumoniae] as the cause of diseases classified elsewhere
CPT/HCPCS: 36415; 51702; 70450; 74018; 74022; 74176; 80053; 81001; 82274; 82607; 82728; 82746; 83540; 83550; 83605; 85025; 85610; 85730; 87040; 87077; 87086; 87186; 87426; 96361; 96365; 99285; G0378; J0692; J0696; J1756; J3370; J7030; J7040; J7050

== ENCOUNTER 2021-05-01 12:44 | Outpatient (CLI) | payer BC, SELFPAY ==
--- NOTE | 2021-05-01 | CT_ITS ---
WS: [id number] Exam: CT chest abd pel w con* Date/Time of Exam: 05/01/2021 1:02 PM Reason For Exam: MALIGNANT NEOPLASM DLP: 2651.[address] scans at [facility] use at least one of these dose optimization techniques: automat ed exposure control; mA and/or kV adjustment per patient size (includes targeted exams where dose is matched to clinical indication); or iterative reconstruction. CT scan of the chest with contrast. The lungs are fully expanded. There are small focal pneumonic inf iltrates identified in the left lower lobe, the lingula and the right lower lobe. These infiltrates w ere not present on the abdominal CT scan performed 04/24/2021 which included these areas of the lung. This may represent developing pneumonia. No obvious pulmonary mass is seen. No pleural or pericardial effusion. The airway is patent. The thoracic aorta is normal in caliber. No significant lymphadenopa thy in the chest. Coronary artery calcifications. Again noted is mild thickening of the lower esophag us as previously noted. No destructive bone lesions are identified. CT/CT chest abd pel w con* IMPRESSION: 1. New small focal pneumonic infiltrates seen in the left lower lobe, the lingu la and the right lower lobe. These were not identified on corresponding lung im ages on abdominal CT of 04/24/2021. This may represent developing pneumonia. Cov id might be considered. 2. No suspicious pulmonary mass or lymphadenopathy in the chest. CT scan of the abdomen and pelvis with contrast. Compared to most recent exam . Small cysts noted in the medial aspect of the left hepatic lobe. The liver is otherwise normal in appearance. No calcified stones in the gallbladder . There may be some wall thickening at the GE junction. The stomach is otherwis e unremarkable. The spleen and pancreas appear normal. Normal adrenal glands. T he kidneys function and drain normally. Mild fullness of the ureters. The abdom inal aorta is normal in caliber. Portal vein and IVC are patent. No lymphadenop athy. No free air. Small bowel loops are not dilated. Normal appendix visualize d. No significant large bowel abnormality seen. Reconstructed urinary bladder w ith history of previous cystectomy and prostatectomy. No pelvic mass or lymphad enopathy seen. Numerous surgical clips in the right and left pelvis. No destruc tive bone lesions. Intact abdominal wall. IMPRESSION: 1. Status post prostatectomy and cystectomy with bladder reconstruction. 2. No new mass or lymphadenopathy in the abdomen or pelvis. No acute finding.
[2021-05-01] MEDS: iohexol 300 mg/mL 100 mL Btl IV (14:36)
[2021-05-01] MEDS: iohexol 300 mg/mL 50 mL Btl IV (14:36)
== END 2021-05-01 12:45 | disposition home or self-care (01) ==
PROVIDERS: PCP Family Medicine; Visit Provider Urology
DX: C80.1 Malignant (primary) neoplasm, unspecified (principal); Z90.79 Acquired absence of other genital organ(s)
CPT/HCPCS: 71260; 74177; Q9967

== ENCOUNTER 2021-05-21 08:58 | Outpatient (CLI) | payer BC, SELFPAY ==
--- NOTE | 2021-05-21 18:29 | ONC FU_ITS ---
Dr. Figueroa Patient Follow-Up Note Patient: Juan Carlos Cuba Unit #: [id number]: 1960 Dicatated By: Ben Figueroa M.D.Date of Visit:May 21, 2021 Onc Med Follow-up/Prog Note Chief Complaint: Bladder cancer. 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 He had been having episodes of gross hematuria since March 2020. He also complained of having bladder spasms with voiding. The symptoms persisted despite antibiotic therapy. CT of the abdomen/pelvis on 10/29/2020 showed a lobulated soft tissue mass filling a large portion of the bladder consistent with bladder neoplasm or mixed density from hemorrhage. The prostate was noted to be slightly enlarged. There was no associated adenopathy. A 1.2 cm low-attenuation lesion within the left lobe of the liver was thought to be likely a cyst. His outpatient cystoscopy on 11/07/2020 showed a huge well differentiated appearing transitional cell cancer involving the right side of the bladder extending from the dome to the bladder neck. Multiple other smaller papillary tumors were involving the left bladder wall and dome. On 11/14/2020 he underwent cystoscopy with TURBT. He was noted to have 3 distinct areas of large bladder tumor involving the right lateral wall, right lateral anterior wall, and lateral right lateral anterior wall with partial involvement of the dome. There were additional multiple sheets of papillary tumor scattered throughout the bladder wall. Due to the large bulk of tumor, the procedure was planned as an initial stage resection. Approximately half of the tumor was able to be resected. Pathology showed high-grade papillary urothelial carcinoma with lamina propria invasion. Detrussor muscle also was noted to be involved with high-grade papillary urothelial carcinoma. With that finding, he was recommended to see Dr. Ashish Bose at the [facility] in regard to further surgery, and he was advised to proceed with neoadjuvant chemotherapy. He began cycle 1 of neoadjuvant dose dense MVAC on 11/28/2020. He tolerated that treatment well. He then continued with cycle 2 on 12/11/2020, with cycle 3 on 12/26/2020, and with cycle 4 on 01/09/2021. On 02/12/2021 he underwent radical cystoprostatectomy with bilateral pelvic lymph node dissection and with creation of neobladder. Pathology showed high-grade papillary urothelial carcinoma measuring 4 cm in maximum dimension. The tumor was multifocal involving the right lateral wall, left lateral wall, anterior wall, posterior wall, and dome. The tumor was noted to focally invade the superficial lamina propria. There was no evidence of invasion of the muscularis propria and there was no lymphovascular invasion present. The margins were free of malignancy. There was no involvement in a total of 16 lymph nodes, which included to left external iliac nodes, 2 right external iliac nodes, 6 left obturator nodes, and 6 right obturator nodes. His pathologic staging was ypT1, ypN0. His medical history is otherwise significant for borderline hypertension and for hyperlipidemia. He has a history of diverticulitis. He is a non-smoker and he has not used other tobacco products. INTERIM HISTORY: On 04/24/2020 when he was admitted to the hospital with acute dehydration in association with urinary tract infection. He improved with IV hydration and antibiotic therapy. At that time, he also was found to have evidence of iron deficiency anemia. Surveillance CT scans of the chest, abdomen, and pelvis on 05/01/2021 showed some new small focal pneumonic infiltrates in the left lower lobe, lingula, and right lower lobe, suspicious for developing pneumonia. There was no evidence for recurrent or metastatic disease in the chest, abdomen, or pelvis. He is seen for a scheduled visit. He has been feeling good generally, though he does have some fatigue and is still has some activity restriction related to his surgery. His ECOG score is 1. His appetite is good. He has gained weight. He has not had any fever since the hospitalization in April. He was having some night sweating for a while, that appears to have resolved now. He has noted some decline in hearing and he has had some tingling in his feet since the chemotherapy. He has not had sore throat or cough. He does not complain of shortness of breath or chest pain. He has no GI complaints. He is having pretty good function with his neobladder. He has no significant joint or bone pain. He does not complain of headache. He was having some dizziness, but that also has improved. Medications: Atorvastatin Calcium (20 mg) Tablet Oral daily, Multi-Vitamin Tablet Oral daily, Pantoprazole Sodium (20 mg) Tablet, enteric coated Oral daily Allergies: No Known Allergies. Vital Signs: Performed on May 21, 2021 09:15 Height - 69.00 in Weight - 181.6 lbs (LOW) BSA - 1.98 sq.m BMI - 26.82 Temperature - 98.6 F Pulse - 91 /min Respiration - 18 /min BP - 126/83 mm(hg) O2 Sat - 98 % Pain - 0 Fatigue - 1 Physical Examination: Constitutional - He looks good generally, Eyes - Sclerae nonicteric. Conjunctivae clear, ENMT - No lesions noted in the oral cavity, Hematologic/Lymphatic - No cervical, clavicular, or axillary adenopathy, Respiratory - Lungs are clear with good air movement bilaterally, Cardiovascular - Heart rhythm is regular. There is no murmur, gallop, or rub noted, Abdomen - Soft. Liver and spleen are not enlarged. There is no abdominal mass or ascites noted and there is no inguinal adenopathy, Extremities - No edema. Pedal pulses are palpable bilaterally, Neurologic - No focal neurologic deficits noted. Problem List: 1. High-grade papillary urothelial carcinoma involving the bladder with pathologic evidence of muscle invasion. By clinical evaluation his disease was stage II (T2, N0, M0) at initial diagnosis in November 2020. 2. Borderline hypertension. 3. Hyperlipidemia. Problems Addressed with this Encounter and Plan: 1. 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 By clinical evaluation his disease was stage II (T2, N0, M0). He was noted to have bulky disease within the bladder, and he underwent partial resection with TURBT on 11/14/2020. In the setting of bulky, muscle invasive disease he was advised to proceed with neoadjuvant chemotherapy. He began cycle 1 of neoadjuvant dose dense MVAC on 11/28/2020. He tolerated that treatment well. He then continued with cycle 2 on 12/11/2020, with cycle 3 on 12/26/2020, and with cycle 4 on 01/09/2021. On 02/12/2021 he underwent radical cystoprostatectomy with bilateral pelvic lymph node dissection and with creation of neobladder. Pathology showed high-grade papillary urothelial carcinoma measuring 4 cm in maximum dimension. The tumor was multifocal, but there was no evidence of invasion of the muscularis propria and there was no lymphovascular invasion present. The margins were free of malignancy. There was no involvement in a total of 16 lymph nodes. His pathologic staging was ypT1, ypN0. His postoperative course was complicated by urinary tract infection, but he otherwise has been showing uneventful recovery. His surveillance CT scans on 05/01/2021 showed no evidence of recurrent or metastatic disease. As such, he continues expectant management. He will be scheduled for follow-up visit in 3 months, and he will surveillance CT scans again prior to that visit. In the meantime, he will see Dr. Parikh for removal of his Port-A-Cath venous access device. 2. He had evidence of iron deficiency anemia. He will need followup CBC and serum iron studies. He will have further evaluation as indicated. Signed By: Ben Figueroa M.D. <<Signature on File>>
== END 2021-05-21 08:59 | disposition home or self-care (01) ==
LOC: ONCMED 09:00
PROVIDERS: PCP Family Medicine; Visit Provider Internal Medicine Medical Oncology
DX: Z08 Encounter for follow-up examination after completed treatment for malignant neoplasm (principal); Z85.51 Personal history of malignant neoplasm of bladder; Z92.21 Personal history of antineoplastic chemotherapy; D50.9 Iron deficiency anemia, unspecified
CPT/HCPCS: 99214

== ENCOUNTER → 2021-05-28 08:09 | Outpatient (BNVA) | payer BC, SELFPAY | PROVIDERS: PCP Family Medicine; Visit Provider Surgery | DX: Z20.822 Contact with and (suspected) exposure to COVID-19 (principal) | CPT/HCPCS: 87635 ==

== ENCOUNTER 2021-06-03 07:57 | Day surgery (SDC) | payer BC, SELFPAY ==
[2021-06-02 12:52] VITALS: BMI 25.7
[2021-06-03 08:13] VITALS: BP 139/89; PULSE 84; RESP 16; TEMP 36.5; O2SAT 99
[2021-06-03] MEDS: sodium chloride 0.9% 1,000 ML 30 ML IV (08:24)
--- NOTE | 2021-06-03 08:33 | ANES.PREANE2 ---
Pre-Anesthetic Assessment Pre-Anesthetic Assessment: Height/Weight: Height 1.75 m Weight 78.925 kg Temp Pulse Resp BP Pulse Ox 97.7 F 84 16 139/89 99 06/03/21 08:13 06/03/21 08:13 06/03/21 08:13 06/03/21 08:13 06/03/21 08:13 Preop Diagnosis: Port-A-Cath removal Proposed Procedure: Operation Date: 06/03/21 09:25 Proposed Procedures p Portacath Removal [id number] Z95.828(Not Applicable) - Victoriano Parikh MD Familial anesthetic complications: none Was Beta Aly taken within 24 hours: N/A Was Clonidine taken within 24 hours: N/A Last intake: Intake Last Liquid Date 06/02/21 Last Liquid Time 20:00 Last Solid Date 06/02/21 Last Solid Time 20:00 Social: Social History: No alcohol and No tobacco Exam: Pre-Anes Outpt Exam: alert, oriented x 3, clear to auscultation bilaterally and regular rate & rhythm Airway: Cervical ROM: WNL MP: 4 Dentition: Full : Comments: bladder cancer Anesthetic Plan: ASA status: 2 Anesthesia: MAC Risk of > 500 ml blood loss (7ml/kg in children): No Meds/Allergies Current Medications: Current Medications Generic Name Dose Route Start Last Admin Trade Name Freq PRN Reason Stop Dose Admin Sodium Chloride 1,000 mls @ 30 ml s/hr 06/03/21 08:15 06/03/21 08:24 Sodium Chloride 0.9% IV 06/04/21 08:14 30 mls/hr .Q24H MIRZA Administration PFSH Anesthesia PFSH: Medical History Bladder tumor Diverticulosis Gross hematuria Port-A-Cath in place (11/24/20) Surgical History (Updated 05/08/21 @ 15:25 by Victoriano Parikh MD) H/O prostatectomy H/O release of tendon rt arm bicep H/O total cystectomy Hx of foot surgery Status post urinary bladder replacement Family History Father , at age 64 Cancer Mother , at age 73 Stroke Social History Alcohol intake: current Alcohol intake frequency: holidays/special occasions only Marital status: Current occupational status: employed 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
--- NOTE | 2021-06-03 09:24 | W.PM.OPSUD ---
Surgery/Procedure H&P Update DATE OF PROCEDURE: June 03, 2021 DATE H&P PERFORMED: 05/08/21 H&P UPDATE INFORMATION: I have reviewed H&P completed within last 30 days, I have examined patient prior to procedure and No changes to prior documentation PREOP DIAGNOSIS: Port-A-Cath removal PLANNED PROCEDURE: Operation Date: 06/03/21 09:25 Proposed Procedures p Portacath Removal [id number] Z95.828(Not Applicable) - Victoriano Parikh MD
[2021-06-03] MEDS: lidocaine 1% INJ 20 mL INJECTION (10:18)
--- NOTE | 2021-06-03 10:28 | PM.OP ---
Operative Report Date of procedure: June 03, 2021 Pre-op Diagnosis: Port-A-Cath removal Urinary bladder cancer Post-op diagnosis: same Procedure Done: Removal of Port-A-Cath from the left subclavian vein Pathology: none sent Surgeon: Victoriano Parikh Anesthesia: MAC Condition: stable Procedure: Patient was taken to the operating room and her right chest was prepped and draped in a sterile manner after being placed under MAC. 10 mL of 1% lidocaine with 0.5% Marcaine was infiltrated around the MediPort and catheter in the left subclavian vein. Using a 15 blade the previous incision was opened, the subcutaneous tissue was divided using electrocautery and MediPort along the catheter was dissected free from the surrounding subcutaneous tissue and removed entirely. The wound was irrigated with saline, hemostasis ensured with electrocautery and subcutaneous tissue was approximated using 3-0 Vicryl suture and skin was closed using running subcuticular 4-0 Monocryl suture. 4x4 and sterile dressings were used as a pressure dressing. The patient was transferred to the recovery room in stable condition.
[2021-06-03 10:35] VITALS: BP 104/74; PULSE 78; RESP 16; TEMP 36.6; O2SAT 97
[2021-06-03 10:40] VITALS: BP 114/78; PULSE 77; RESP 20; TEMP 36.6; O2SAT 96
[2021-06-03 10:45] VITALS: BP 114/69; PULSE 83; RESP 15; TEMP 36.6; O2SAT 98
[2021-06-03 11:00] VITALS: BP 115/72; PULSE 82; RESP 16; TEMP 36.6; O2SAT 97
--- NOTE | 2021-06-03 12:15 | ANE.PACU2 ---
Inpatient post-anesthesia follow up: Airway intact: Yes Vital signs: Temperature 97.9 F Pulse Rate 82 Respiratory Rate 16 Blood Pressure 115/72 Pulse Oximetry 97 Oxygen Delivery Me thod Room Air Oxygen Flow Rate Fraction of Inspir ed Oxygen Hydration adequate: Yes Nausea and vomiting: No Pain level: 2 Mental status: Baseline
== END 2021-06-03 11:15 | disposition home or self-care (01) ==
PROVIDERS: PCP Family Medicine; Visit Provider Surgery
PROC: (CPT 36589; principal; 2021-06-03 09:25)
DX: Z95.828 Presence of other vascular implants and grafts (principal); Z85.51 Personal history of malignant neoplasm of bladder
CPT/HCPCS: 36590; J2704; J3490; J7030

== ENCOUNTER → 2021-07-07 08:04 | Outpatient (BNVA) | payer BC, SELFPAY | PROVIDERS: PCP Family Medicine; Visit Provider Urology | DX: C67.8 Malignant neoplasm of overlapping sites of bladder (principal); Z96.0 Presence of urogenital implants; R33.9 Retention of urine, unspecified; N52.32 Erectile dysfunction following radical cystectomy | CPT/HCPCS: 81003 ==

== ENCOUNTER 2021-08-03 08:11 | Outpatient (CLI) | payer BC, SELFPAY ==
--- NOTE | 2021-08-03 08:31 | CT_ITS ---
WS: [id number] CT CHEST, ABDOMEN AND PELVIS WITH CONTRAST. HISTORY: BLADDER CANCER TECHNIQUE: Contiguous 5 mm axial imaging performed through the chest, abdomen and pelvis with IV cont rast, oral contrast has been provided. Coronal and sagittal reformats chest. Coronal and sagittal ref ormats through the abdomen and pelvis. All CT scans at [facility] use at least one of these d ose optimization techniques: automated exposure control; mA and/or kV adjustment per patient size (in cludes targeted exams where dose is matched to clinical indication); or iterative reconstruction. CONTRAST: Visipaque 320; 95 mL IV. DLP: 2533.53 mGycm COMPARISON: 05/01/2021, 11/19/[address]: Linear scar at the LEFT apex. No suspicious masses or calcifications. Previously described groundglass attenuation at the lung bases have resolved. No pericardial or pleural effusions. No medi astinal or hilar adenopathy. Normal size aorta and pulmonary artery. There is mild to moderate mid to lower esophageal thickening. Greatest amount of edema and thickening is at the GE junction. Similar findings were noted on the prior study. No bone destructive lesions. Abdomen CT: Liver, spleen, gallbladder, pancreas and adrenal glands are negative. Again noted is a sm all 1.5 cm LEFT hepatic cyst. Mild atherosclerosis aorta. No ascites or adenopathy. RIGHT kidney is normal size. Mild dilatation of the RIGHT renal pelvis and RIGHT ureter. RIGHT ureter is dilated and tortuous throughout its course to the neobladder. Very mild progression of the ureter al and renal pelvis dilatation. At the insertion of the ureter into the urinary bladder there is an i ncreased soft tissue which demonstrates some mild enhancement. LEFT kidney is normal size. No mass. No significant hydronephrosis. The proximal LEFT ureter is jessica l. Pelvic CT: Neobladder is noted along with cystoprostatectomy. Shape of the neobladder is irregular an d lobulated but similar to the prior study. No ascites. No adenopathy within the pelvis. Postsurgical changes are noted anteriorly within soft tissues of the pelvis. No osteoblastic or osteolytic bone disease. CT/CT chest abd pel w con* IMPRESSION: 1. Patient is status post cystoprostatectomy, ureteral reimplantation and neob ladder formation. 2. Very slight new RIGHT hydroureteronephrosis since the prior examination of 05/01/2021. Mild dilatation of the ureter can be seen after neobladder formatio n and reinsertion of the ureters. Possibility of a developing stricture or neop lasm at the ureteral insertion site should be considered. Close follow-up is re commended. 3. No adenopathy or ascites. 4. Mid to distal thickening of the esophagus and changes of esophagitis. 5. No metastatic disease to the lungs.
[2021-08-03] MEDS: iohexol 300 mg/mL 50 mL Btl PO (08:34)
[2021-08-03 10:42] LABS: Blood Urea Nitrogen 14 mg/dL (8-23); Glomerular Filtration Rate 47.3 mL/min (90-130)
[2021-08-03] MEDS: iodixanol 320 mg/mL 100mL Btl IV (10:49)
== END 2021-08-03 08:12 | disposition home or self-care (01) ==
PROVIDERS: PCP Family Medicine; Visit Provider Internal Medicine Medical Oncology
DX: C67.8 Malignant neoplasm of overlapping sites of bladder (principal); N13.30 Unspecified hydronephrosis; Z90.79 Acquired absence of other genital organ(s)
CPT/HCPCS: 71260; 74177; 82565; 84520; Q9967

== ENCOUNTER → 2021-08-06 07:46 | Outpatient (BNVA) | payer BC, SELFPAY | PROVIDERS: PCP Family Medicine; Visit Provider Urology | DX: C67.8 Malignant neoplasm of overlapping sites of bladder (principal) | CPT/HCPCS: 81003 ==

== ENCOUNTER 2021-09-01 07:59 | Outpatient (CLI) | payer BC, SELFPAY ==
[2021-09-01 08:40] LABS: Basophils # 0.1 10^3/uL (0.0-0.1); Basophils % 0.9 %; Eosinophils # 0.2 10^3/uL (0.0-0.8); Eosinophils % 2.6 %; Hematocrit 39.1 % (42.0-52.0); Hemoglobin 13.8 g/dL (11.7-16.6); Lymphocytes # 1.3 10^3/uL (0.8-4.8); Lymphocytes % 22.1 %; Mean Corpuscular HGB Conc 35.3 g/dL (30.0-36.0); Mean Corpuscular Hemoglobin 31.7 pg (28.0-34.0); Mean Corpuscular Volume 89.7 fl (80-94); Mean Platelet Volume 9.3 fL (7.4-10.4); Monocytes # 0.4 10^3/uL (0.2-0.9); Monocytes % 6.9 %; Neutrophils # 3.83 10^3/uL (1.8-7.7); Neutrophils % 67.3 %; Nucleated Red Blood Cells % 0 %; Platelet Count 260 10^3/cmm (130-400); Red Blood Count 4.36 10^6/uL (4.1-5.3); Red Cell Distribution Width 13.1 % (12.1-15.1); White Blood Count 5.7 10^3/uL (4.0-10.0)
[2021-09-01 09:16] LABS: Alanine Aminotransferase 24 U/L (0-41); Albumin Level 4.7 g/dL (3.5-5.2); Alkaline Phosphatase 76 IU/L (40-130); Anion Gap 17.3 (5-19); Aspartate Amino Transferase 22 U/L (0-40); Blood Urea Nitrogen 15 mg/dL (8-23); Calcium 9.3 mg/dL (8.5-10.5); Carbon Dioxide 22 mmol/L (22-29); Chloride 103 mmol/L (98-107); Globulin 2.2 g/dL (1.3-4.6); Glomerular Filtration Rate 51.2 mL/min (90-130); Glucose 95 mg/dL (65-115); Osmolality Calculated 287 mOsm/kg (285-295); Potassium 4.3 mmol/L (3.5-5.1); Sodium 138 mmol/L (136-145); Total Bilirubin 0.8 mg/dL (0.15-1.2); Total Protein 6.9 g/dL (6.6-8.7)
--- NOTE | 2021-09-01 18:18 | ONC FU_ITS ---
Dr. Figueroa Patient Follow-Up Note Patient: Juan Carlos Cuba Unit #: [id number]: 1960 Dicatated By: Ben Figueroa M.D.Date of Visit:Sep 01, 2021 Onc Med Follow-up/Prog Note Chief Complaint: Bladder cancer. 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 He had been having episodes of gross hematuria since March 2020. He also complained of having bladder spasms with voiding. The symptoms persisted despite antibiotic therapy. CT of the abdomen/pelvis on 10/29/2020 showed a lobulated soft tissue mass filling a large portion of the bladder consistent with bladder neoplasm or mixed density from hemorrhage. The prostate was noted to be slightly enlarged. There was no associated adenopathy. A 1.2 cm low-attenuation lesion within the left lobe of the liver was thought to be likely a cyst. His outpatient cystoscopy on 11/07/2020 showed a huge well differentiated appearing transitional cell cancer involving the right side of the bladder extending from the dome to the bladder neck. Multiple other smaller papillary tumors were involving the left bladder wall and dome. On 11/14/2020 he underwent cystoscopy with TURBT. He was noted to have 3 distinct areas of large bladder tumor involving the right lateral wall, right lateral anterior wall, and lateral right lateral anterior wall with partial involvement of the dome. There were additional multiple sheets of papillary tumor scattered throughout the bladder wall. Due to the large bulk of tumor, the procedure was planned as an initial stage resection. Approximately half of the tumor was able to be resected. Pathology showed high-grade papillary urothelial carcinoma with lamina propria invasion. Detrussor muscle also was noted to be involved with high-grade papillary urothelial carcinoma. With that finding, he was recommended to see Dr. Ashish Bose at the [facility] in regard to further surgery, and he was advised to proceed with neoadjuvant chemotherapy. He began cycle 1 of neoadjuvant dose dense MVAC on 11/28/2020. He tolerated that treatment well. He then continued with cycle 2 on 12/11/2020, with cycle 3 on 12/26/2020, and with cycle 4 on 01/09/2021. On 02/12/2021 he underwent radical cystoprostatectomy with bilateral pelvic lymph node dissection and with creation of neobladder. Pathology showed high-grade papillary urothelial carcinoma measuring 4 cm in maximum dimension. The tumor was multifocal involving the right lateral wall, left lateral wall, anterior wall, posterior wall, and dome. The tumor was noted to focally invade the superficial lamina propria. There was no evidence of invasion of the muscularis propria and there was no lymphovascular invasion present. The margins were free of malignancy. There was no involvement in a total of 16 lymph nodes, which included 2 left external iliac nodes, 2 right external iliac nodes, 6 left obturator nodes, and 6 right obturator nodes. His pathologic staging was ypT1, ypN0. His medical history is otherwise significant for borderline hypertension and for hyperlipidemia. He has a history of diverticulitis. He is a non-smoker and he has not used other tobacco products. INTERIM HISTORY: On 04/24/2021 he was admitted to the hospital with acute dehydration in association with urinary tract infection. He improved with IV hydration and antibiotic therapy. At that time, he also was found to have evidence of iron deficiency anemia. His CT scans of the chest, abdomen, and pelvis on 05/01/2021 showed some new small focal pneumonic infiltrates in the left lower lobe, lingula, and right lower lobe, suspicious for developing pneumonia. There was no evidence for recurrent or metastatic disease in the chest, abdomen, or pelvis. He continued expectant management for the bladder cancer. Surveillance CT scans on 08/03/2021 showed resolution of previously noted groundglass attenuation at the lung bases. There was no mediastinal or hilar adenopathy noted. There was mild to moderate mid to lower esophageal thickening with the greatest amount of edema and thickening noted at the GE junction. The findings were similar to the previous study. The right ureter was noted to be dilated and tortuous throughout its course to the neobladder. There is very mild progression of the right ureteral and right pelvis dilatation compared to the prior study. There was increased soft tissue with mild enhancement at the site of the insertion of the ureter into the neobladder. Both the right and left kidney were normal size, and the proximal left ureter was noted to be normal. There was no adenopathy in the abdomen/pelvis. The right hydroureteronephrosis was felt to most likely postsurgical, though developing stricture or neoplasm at the ureteral insertion site was not excluded, and close follow-up was recommended. He is seen for a follow-up visit. He has been feeling good generally. His energy and activity tolerance are pretty much back to normal. ECOG score is 0. He has good appetite. He has no fever or night sweats. He does not complain of cough, and he has not been having shortness of breath or chest pain. He has occasional acid reflux symptoms, for which he takes Zantac on an as needed basis. He has had some diarrhea during the past month, but he thinks that is mostly diet related. He has had no problems with his neobladder. He has had some discomfort in the left shoulder, which he attributes to a minor rotator cuff tear. He has no other joint or bone pain. He does not complain of headache. He says his dizziness is getting better, and the neuropathy in his feet has also been showing gradual improvement. Medications: Atorvastatin Calcium (20 mg) Tablet Oral daily, Multi-Vitamin Tablet Oral daily, Tadalafil (2.5 mg) Tablet Oral Take as Directed Allergies: No Known Allergies. Vital Signs: Performed on Sep 01, 2021 15:21 Height - 69.00 in Weight - 193.4 lbs (HIGH) BSA - 2.04 sq.m BMI - 28.56 Temperature - 97.7 F (LOW) Pulse - 83 /min Respiration - 18 /min BP - 139/83 mm(hg) O2 Sat - 98 % Pain - 0 Fatigue - 0 Physical Examination: Constitutional - He looks good generally, Eyes - Sclerae nonicteric. Conjunctivae clear, ENMT - No lesions noted in the oral cavity, Hematologic/Lymphatic - No cervical, clavicular, or axillary adenopathy, Respiratory - Lungs are clear with good air movement bilaterally, Cardiovascular - Heart rhythm is regular. There is no murmur, gallop, or rub noted, Abdomen - Soft. Liver and spleen are not enlarged. There is no abdominal mass or ascites noted and there is no inguinal adenopathy, Extremities - No edema, Neurologic - No focal neurologic deficits noted. Lab/Imaging: Test performed on Sep 01, 2021 08:12 Sodium 138 mmol/L Potassium 4.3 mmol/L Chloride 103 mmol/L CO2 22 mmol/L Anion Gap 17.3 BUN 15 mg/dL Creatinine 1.4 mg/dL Cr Clearance (Est) 64.3100 mL/min eGFR 51.2 mL/min Glucose 95 mg/dL Osmolality - Calculated 287 mOsm/kg Calcium 9.3 mg/dL Protein, Total 6.9 g/dL Albumin 4.7 g/dL Globulin 2.2 g/dL Bilirubin, Total 0.8 mg/dL ALT (SGPT) 24 U/L AST (SGOT) 22 U/L Alkaline Phosphatase 76 IU/L WBC 5.7 10 3/uL RBC 4.36 10 6/uL HGB 13.8 g/dL HCT 39.1 % MCV 89.7 fl MCH 31.7 pg MCHC 35.3 g/dL RDW 13.1 % Platelet Count 260 10 3/cmm MPV 9.3 fL Neutrophils 3.83 10 3/uL Lymphocytes 1.3 10 3/uL Monocytes 0.4 10 3/uL Eosinophils 0.2 10 3/uL Basophils 0.1 10 3/uL Neutrophil % 67.3 % Lymphocyte % 22.1 % Monocyte % 6.9 % Eosinophil % 2.6 % Basophils % 0.9 % NRBC % 0 % Problem List: 1. High-grade papillary urothelial carcinoma involving the bladder with pathologic evidence of muscle invasion. By clinical evaluation his disease was stage II (T2, N0, M0) at initial diagnosis in November 2020. 2. Borderline hypertension. 3. Hyperlipidemia. 4. GERD. Problems Addressed with this Encounter and Plan: 1. 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 By clinical evaluation his disease was stage II (T2, N0, M0). He was noted to have bulky disease within the bladder, and he underwent partial resection with TURBT on 11/14/2020. In the setting of bulky, muscle invasive disease he was advised to proceed with neoadjuvant chemotherapy. He began cycle 1 of neoadjuvant dose dense MVAC on 11/28/2020. He tolerated that treatment well. He then continued with cycle 2 on 12/11/2020, with cycle 3 on 12/26/2020, and with cycle 4 on 01/09/2021. On 02/12/2021 he underwent radical cystoprostatectomy with bilateral pelvic lymph node dissection and with creation of neobladder. Pathology showed high-grade papillary urothelial carcinoma measuring 4 cm in maximum dimension. The tumor was multifocal, but there was no evidence of invasion of the muscularis propria and there was no lymphovascular invasion present. The margins were free of malignancy. There was no involvement in a total of 16 lymph nodes. His pathologic staging was ypT1, ypN0. His postoperative course was complicated by urinary tract infection, but he otherwise had an uneventful recovery. His surveillance CT scans on 05/01/2021 showed no evidence of recurrent or metastatic disease. He has since then been doing well clinically. His repeat CT scans on 08/03/2021 showed mild right hydroureteronephrosis compared to the April study. This was felt to most likely postoperative, though developing stricture or neoplasm at the ureteral insertion site was not excluded. He is scheduled to have follow-up with Dr. Hines on 09/10/2021, and the CT report and this will be forwarded for that visit. I will otherwise just plan to see him for a follow-up visit at a 3-month interval from his CT scan. 2. He has CT evidence of esophagitis. As Zantac is no longer available, he will be given the option to either change to famotidine or to restart pantoprazole. Signed By: Ben Figueroa M.D. <<Signature on File>>
== END 2021-09-01 08:00 | disposition home or self-care (01) ==
LOC: ONCMED 08:01
PROVIDERS: PCP Family Medicine; Visit Provider Internal Medicine Medical Oncology
DX: Z08 Encounter for follow-up examination after completed treatment for malignant neoplasm (principal); Z85.51 Personal history of malignant neoplasm of bladder; I10 Essential (primary) hypertension; E78.5 Hyperlipidemia, unspecified; K21.9 Gastro-esophageal reflux disease without esophagitis; Z92.21 Personal history of antineoplastic chemotherapy
CPT/HCPCS: 36415; 80053; 85025; 99214

== ENCOUNTER 2021-10-19 07:59 | Outpatient (CLI) | payer BC, SELFPAY ==
--- NOTE | 2021-10-19 08:06 | CT_ITS ---
WS: [id number] CT ABDOMEN AND PELVIS WITH CONTRAST HISTORY: BLADDER CANCER TECHNIQUE: Imaging performed of the abdomen and pelvis with IV contrast. Single phase imaging of the abdomen. Coronal and sagittal reformats are submitted. All CT scans at [facility] use at [facility] one of these dose optimization techniques: automated exposure control; mA and/or kV adjustment per patient size (includes targeted exams where dose is matched to clinical indication); or iterative re construction. IV CONTRAST: Visipaque 320; 95 mL IV. Oral contrast: Yes. DLP: 1537.93 mGy.cm COMPARISON: 08/03/2021 Lower thorax: Lung bases are clear. Heart is normal size. Small hiatal hernia similar to the prior udy. Liver/biliary system: Normal size liver. Low-attenuation 12 mm cyst in the LEFT lobe of the liver is stable. Normal portal vein. No metastatic lesions. Normal bile duct. Gallbladder: Normal. No gallstones or wall thickening. No pericholecystic fluid. Pancreas: Normal size pancreas and pancreatic duct. No adjacent inflammation. Spleen: Normal size spleen. No mass or infarct. Adrenal glands: Normal. Right kidney: Normal. Left kidney: Normal. Aorta: Mild atherosclerosis with no aneurysm. Lymphadenopathy: None. Free fluid: None. GI tract: Normal appendix. Diffuse scattered diverticula in the distal colon. No acute diverticulitis or obstruction. Abdominal wall: Postsurgical changes are noted along the midline of the abdominal wall. No mass. Pelvis: Patient is status post cystoprostatectomy and neobladder formation with RIGHT ureteral reimpl antation. Ureteral reimplantation site contains increased soft tissue enhancement extending over salma th of 2.3 cm. There is some very mild wall thickening, nodularity and enhancement at the reimplantati on site which is more prominent as compared to the most recent study. No ureteral obstruction. These findings are seen on the axial and the coronal and sagittal reformats. Bones: Unremarkable. CT/CT abdomen pelvis w con* [id number] IMPRESSION: 1. Patient is status post prostatectomy, cystectomy with bladder reconstructio n. 2. Increasing soft tissue thickening and enhancement at the RIGHT distal urete ral implantation site. Progression of thickening although there is no ureteral obstruction. Recommend follow-up and possible reevaluation of the distal RIGHT ureteral implantation site. 3. No ascites. No adenopathy. Small hiatal hernia.
[2021-10-19] MEDS: iodixanol 320 mg/mL 100mL Btl IV (09:43)
== END 2021-10-19 08:00 | disposition home or self-care (01) ==
LOC: RAD 08:01
PROVIDERS: PCP Family Medicine; Visit Provider Internal Medicine Medical Oncology
DX: C67.8 Malignant neoplasm of overlapping sites of bladder (principal); Z90.79 Acquired absence of other genital organ(s); K44.9 Diaphragmatic hernia without obstruction or gangrene
CPT/HCPCS: 74177

== ENCOUNTER → 2021-10-23 13:19 | Outpatient (BNVA) | payer BC, SELFPAY | PROVIDERS: PCP Family Medicine; Visit Provider Urology | DX: C67.8 Malignant neoplasm of overlapping sites of bladder (principal) | CPT/HCPCS: 88112 ==

== ENCOUNTER 2021-11-03 12:30 | Outpatient (CLI) | payer BC, SELFPAY ==
[2021-11-03 12:51] LABS: Basophils % 0.7 %; Eosinophils # 0.1 10^3/uL (0.0-0.8); Eosinophils % 2.1 %; Hematocrit 37.8 % (42.0-52.0); Hemoglobin 13.1 g/dL (11.7-16.6); Lymphocytes # 1.3 10^3/uL (0.8-4.8); Lymphocytes % 22.3 %; Mean Corpuscular HGB Conc 34.7 g/dL (30.0-36.0); Mean Corpuscular Hemoglobin 31.9 pg (28.0-34.0); Monocytes # 0.4 10^3/uL (0.2-0.9); Neutrophils # 3.96 10^3/uL (1.8-7.7); Neutrophils % 67.7 %; Nucleated Red Blood Cells % 0 %; Platelet Count 234 10^3/cmm (130-400); Red Blood Count 4.11 10^6/uL (4.1-5.3); Red Cell Distribution Width 12.9 % (12.1-15.1); White Blood Count 5.8 10^3/uL (4.0-10.0)
[2021-11-03 13:36] LABS: Alanine Aminotransferase 23 U/L (0-41); Albumin Level 4.6 g/dL (3.5-5.2); Alkaline Phosphatase 77 IU/L (40-130); Anion Gap 19.3 (5-19); Aspartate Amino Transferase 21 U/L (0-40); Blood Urea Nitrogen 15 mg/dL (8-23); Calcium 9.6 mg/dL (8.5-10.5); Carbon Dioxide 22 mmol/L (22-29); Chloride 104 mmol/L (98-107); Globulin 2.3 g/dL (1.3-4.6); Glomerular Filtration Rate 51.2 mL/min (90-130); Glucose 88 mg/dL (65-115); Iron 77 ug/dL (59-158); Osmolality Calculated 290 mOsm/kg (285-295); Percent Saturation 24.2 % (20-50); Potassium 5.3 mmol/L (3.5-5.1); Sodium 140 mmol/L (136-145); Total Iron Binding Capacity 317 mcg/dl; Total Protein 6.9 g/dL (6.6-8.7); Unsaturated Iron Binding 240 ug/dL (112-347)
--- NOTE | 2021-11-04 08:12 | ONC FU_ITS ---
Dr. Figueroa Patient Follow-Up Note Patient: Juan Carlos Cuba Unit #: [id number]: 1960 Dicatated By: Ben Figueroa M.D.Date of Visit:Nov 03, 2021 Onc Med Follow-up/Prog Note Chief Complaint: Bladder cancer. 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 He had been having episodes of gross hematuria since March 2020. He also complained of having bladder spasms with voiding. The symptoms persisted despite antibiotic therapy. CT of the abdomen/pelvis on 10/29/2020 showed a lobulated soft tissue mass filling a large portion of the bladder consistent with bladder neoplasm or mixed density from hemorrhage. The prostate was noted to be slightly enlarged. There was no associated adenopathy. A 1.2 cm low-attenuation lesion within the left lobe of the liver was thought to be likely a cyst. His outpatient cystoscopy on 11/07/2020 showed a huge well differentiated appearing transitional cell cancer involving the right side of the bladder extending from the dome to the bladder neck. Multiple other smaller papillary tumors were involving the left bladder wall and dome. On 11/14/2020 he underwent cystoscopy with TURBT. He was noted to have 3 distinct areas of large bladder tumor involving the right lateral wall, right lateral anterior wall, and lateral right lateral anterior wall with partial involvement of the dome. There were additional multiple sheets of papillary tumor scattered throughout the bladder wall. Due to the large bulk of tumor, the procedure was planned as an initial stage resection. Approximately half of the tumor was able to be resected. Pathology showed high-grade papillary urothelial carcinoma with lamina propria invasion. Detrussor muscle also was noted to be involved with high-grade papillary urothelial carcinoma. With that finding, he was recommended to see Dr. Ashish Bose at the [facility] in regard to further surgery, and he was advised to proceed with neoadjuvant chemotherapy. He began cycle 1 of neoadjuvant dose dense MVAC on 11/28/2020. He tolerated that treatment well. He then continued with cycle 2 on 12/11/2020, with cycle 3 on 12/26/2020, and with cycle 4 on 01/09/2021. On 02/12/2021 he underwent radical cystoprostatectomy with bilateral pelvic lymph node dissection and with creation of neobladder. Pathology showed high-grade papillary urothelial carcinoma measuring 4 cm in maximum dimension. The tumor was multifocal involving the right lateral wall, left lateral wall, anterior wall, posterior wall, and dome. The tumor was noted to focally invade the superficial lamina propria. There was no evidence of invasion of the muscularis propria and there was no lymphovascular invasion present. The margins were free of malignancy. There was no involvement in a total of 16 lymph nodes, which included 2 left external iliac nodes, 2 right external iliac nodes, 6 left obturator nodes, and 6 right obturator nodes. His pathologic staging was ypT1, ypN0. On 04/24/2021 he was admitted to the hospital with acute dehydration in association with urinary tract infection. He improved with IV hydration and antibiotic therapy. At that time, he also was found to have evidence of iron deficiency anemia. His CT scans of the chest, abdomen, and pelvis on 05/01/2021 showed some new small focal pneumonic infiltrates in the left lower lobe, lingula, and right lower lobe, suspicious for developing pneumonia. There was no evidence for recurrent or metastatic disease in the chest, abdomen, or pelvis. He was then followed on expectant management for the bladder cancer. His medical history is otherwise significant for borderline hypertension and for hyperlipidemia. He has a history of diverticulitis. He is a non-smoker and he has not used other tobacco products. INTERIM HISTORY: Surveillance CT scans on 08/03/2021 showed resolution of previously noted groundglass attenuation at the lung bases. There was no mediastinal or hilar adenopathy noted. There was mild to moderate mid to lower esophageal thickening with the greatest amount of edema and thickening noted at the GE junction. The findings were similar to the previous study. The right ureter was noted to be dilated and tortuous throughout its course to the neobladder. There was very mild progression of the right ureteral and right pelvis dilatation compared to the prior study. There was increased soft tissue with mild enhancement at the site of the insertion of the ureter into the neobladder. Both the right and left kidney were normal size, and the proximal left ureter was noted to be normal. There was no adenopathy in the abdomen/pelvis. The right hydroureteronephrosis was felt to most likely postsurgical, though developing stricture or neoplasm at the ureteral insertion site was not excluded, and close follow-up was recommended. CT of the abdomen/pelvis on 10/19/2021 showed increased soft tissue enhancement at the ureteral reimplantation site which was noted to extend over a length of 2.3 cm. There was some very mild wall thickening, nodularity, and enhancement at the reimplantation site which was noted to be more prominent compared to the August 2021 study. There was no evidence of ureteral obstruction, and there was no lymphadenopathy or other evidence of metastatic disease. Urine cytology from 10/23/2021 was negative for malignancy. He is seen for a follow-up visit. He has been feeling good generally. He has good energy and he has normal activity. His ECOG score is 0. He has been getting a little stitch in his right side when he works out. He has no other significant complaints. His appetite is good. He has no fever or night sweats. He has not had sore mouth or throat. He has just occasional cough. His breathing now is not quite as good as it used to be. He does not complain of chest pain. His GERD symptoms have improved with pantoprazole. Bowel function has been okay, and he has no difficulty voiding with the neobladder. He has no significant joint or bone pain. He occasionally has a little bit of headache. He has not been dizzy or lightheaded. His neuropathy symptoms have almost completely resolved. Medications: Atorvastatin Calcium (20 mg) Tablet Oral daily, Co Q 10 Capsule Oral daily, Lovaza (500 mg) Capsule Oral daily, Multi-Vitamin Tablet Oral daily, Pantoprazole Sodium (20 mg) Tablet, enteric coated Oral daily, Tadalafil 1 Tablet (of 2.5 mg) Oral daily Allergies: No Known Allergies. Vital Signs: Performed on Nov 03, 2021 14:58 Height - 69.00 in Weight - 200.6 lbs (HIGH) BSA - 2.07 sq.m BMI - 29.62 Temperature - 98.2 F (LOW) Pulse - 90 /min Respiration - 18 /min BP - 132/81 mm(hg) O2 Sat - 97 % Pain - 0 Fatigue - 0 Physical Examination: Constitutional - He looks good generally, Eyes - Sclerae nonicteric. Conjunctivae clear, ENMT - No lesions noted in the oral cavity, Hematologic/Lymphatic - No cervical, clavicular, or axillary adenopathy, Respiratory - Lungs are clear with good air movement bilaterally, Cardiovascular - Heart rhythm is regular. There is no murmur, gallop, or rub noted, Abdomen - Soft. Liver and spleen are not enlarged. There is no abdominal mass or ascites noted and there is no inguinal adenopathy, Extremities - No edema, Neurologic - No focal neurologic deficits noted. Lab/Imaging: Test performed on Nov 03, 2021 12:42 Iron 77 mcg/dL Sodium 140 mmol/L Iron Binding Capacity (TIBC) 317 mcg/dl Potassium 5.3 mmol/L % Iron Saturation 24.2 % Chloride 104 mmol/L CO2 22 mmol/L UIBC 240 mcg/dL Anion Gap 19.3 BUN 15 mg/dL Creatinine 1.4 mg/dL Cr Clearance (Est) 69.51 mL/min eGFR 51.2 mL/min Glucose 88 mg/dL Osmolality - Calculated 290 mOsm/kg Calcium 9.6 mg/dL Protein, Total 6.9 g/dL Albumin 4.6 g/dL Globulin 2.3 g/dL Bilirubin, Total 1.0 mg/dL ALT (SGPT) 23 U/L AST (SGOT) 21 U/L Alkaline Phosphatase 77 IU/L WBC 5.8 10 3/uL RBC 4.11 10 6/uL HGB 13.1 g/dL HCT 37.8 % MCV 92.0 fl MCH 31.9 pg MCHC 34.7 g/dL RDW 12.9 % Platelet Count 234 10 3/cmm MPV 9.0 fL Neutrophils 3.96 10 3/uL Lymphocytes 1.3 10 3/uL Monocytes 0.4 10 3/uL Eosinophils 0.1 10 3/uL Basophils 0.0 10 3/uL Neutrophil % 67.7 % Lymphocyte % 22.3 % Monocyte % 7.0 % Eosinophil % 2.1 % Basophils % 0.7 % NRBC % 0 % Problem List: 1. High-grade papillary urothelial carcinoma involving the bladder with pathologic evidence of muscle invasion. By clinical evaluation his disease was stage II (T2, N0, M0) at initial diagnosis in November 2020. 2. Borderline hypertension. 3. Hyperlipidemia. 4. GERD. 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 By clinical evaluation his disease was stage II (T2, N0, M0). He was noted to have bulky disease within the bladder, and he underwent partial resection with TURBT on 11/14/2020. In the setting of bulky, muscle invasive disease he was advised to proceed with neoadjuvant chemotherapy. He began cycle 1 of neoadjuvant dose dense MVAC on 11/28/2020. He tolerated that treatment well. He then continued with cycle 2 on 12/11/2020, with cycle 3 on 12/26/2020, and with cycle 4 on 01/09/2021. On 02/12/2021 he underwent radical cystoprostatectomy with bilateral pelvic lymph node dissection and with creation of neobladder. Pathology showed high-grade papillary urothelial carcinoma measuring 4 cm in maximum dimension. The tumor was multifocal, but there was no evidence of invasion of the muscularis propria and there was no lymphovascular invasion present. The margins were free of malignancy. There was no involvement in a total of 16 lymph nodes. His pathologic staging was ypT1, ypN0. His postoperative course was complicated by urinary tract infection, but he otherwise had an uneventful recovery. CT scans of the abdomen/pelvis on 05/01/2021 showed no evidence of recurrent or metastatic disease. He was then followed on expectant management. His surveillance CT scans on 08/03/2021 showed mild right hydroureteronephrosis compared to the April study. This was felt to most likely postoperative, though developing stricture or neoplasm at the ureteral insertion site was not excluded. Repeat CT scans on 10/19/2021 showed some further increase in the soft tissue thickening and enhancement at the right distal ureteral implantation site. Those studies were forwarded to Dr. Hines for review. In the meantime, he was found to have negative urine cytology. Unless additional evaluation is recommended by Dr. Hines, he will remain on expectant management with follow-up visit and surveillance CT scans scheduled at a 3-month interval. Signed By: Ben Figueroa M.D. <<Signature on File>>
== END 2021-11-03 12:31 | disposition home or self-care (01) ==
LOC: ONCMED 12:34
PROVIDERS: PCP Family Medicine; Visit Provider Internal Medicine Medical Oncology
DX: C67.9 Malignant neoplasm of bladder, unspecified (principal); I10 Essential (primary) hypertension; E78.5 Hyperlipidemia, unspecified; K21.9 Gastro-esophageal reflux disease without esophagitis; Z79.899 Other long term (current) drug therapy; Z96.0 Presence of urogenital implants
CPT/HCPCS: 36415; 80053; 83540; 83550; 85025; 99214

== ENCOUNTER 2022-02-19 12:00 | Oncology outpatient (recurring) (ONCR) | payer BC, SELFPAY ==
--- NOTE | 2022-02-12 14:03 | CTR_ITS ---
PROCEDURE INFORMATION: Exam: CT Chest With Contrast; Diagnostic Exam date and time: 02/12/2022 3:25 PM Age: 61 years old Clinical indication: Condition or disease; Other: Bladder cancer; Prior surgery TECHNIQUE: Imaging protocol: Diagnostic computed tomography of the chest with contrast. Radiation optimization: All CT scans at this facility use at least one of these dose optimization techniques: automated exposure control; mA and/or kV adjustment per patient size (includes targeted exams where dose is matched to clinical indication); or iterative reconstruction. Contrast material: VISI 320; Contrast volume: 95 ml; Contrast route: INTRAVENOUS (IV); COMPARISON: 1. CT abdomen pelvis w con* [id number] 10/19/2021 9:[address] chest abd pel w con* 08/03/2021 10:47 AM RADIATION DOSE METRICS: Total DLP (mGy-cm): 1639.18 FINDINGS: Lungs: Lungs are clear Pleural spaces: Unremarkable. No pneumothorax. No pleural effusion. Heart: Unremarkable. No cardiomegaly. No pericardial effusion. Mediastinal space: There is moderate esophageal wall thickening which could represent esophagitis. Please correlate clinically. Lymph nodes: There is no evidence of lymphadenopathy. Vasculature: There is no thoracic aortic aneurysm or dissection. Bones/joints: No focal bone abnormality is identified. Soft tissues: Unremarkable. PROCEDURE INFORMATION: Exam: CT Abdomen And Pelvis With Contrast Exam date and time: 02/12/2022 3:25 PM Age: 61 years old Clinical indication: Condition or disease; Other: Bladder cancer; Prior surgery TECHNIQUE: Imaging protocol: Computed tomography of the abdomen and pelvis with contrast. Radiation optimization: All CT scans at this facility use at least one of these dose optimization techniques: automated exposure control; mA and/or kV adjustment per patient size (includes targeted exams where dose is matched to clinical indication); or iterative reconstruction. Contrast material: VISI 320; Contrast volume: 95 ml; Contrast route: INTRAVENOUS (IV); COMPARISON: 1. CT abdomen pelvis w con* [id number] 10/19/2021 9:[address] chest abd pel w con* 08/03/2021 10:47 AM RADIATION DOSE METRICS: Total DLP (mGy-cm): 1639.18 FINDINGS: Liver: There is a 15 mm cyst tip of the left lobe of the liver slightly larger than on 10/19/2021. Gallbladder and bile ducts: Normal. No calcified stones. No ductal dilation. Pancreas: The pancreas is normal. Spleen: The spleen is normal. Adrenal glands: The adrenal glands are normal. Kidneys and ureters: The kidneys are normal. The kidneys are normal. There is no evidence of hydronephrosis. There is no evidence of renal or ureteral calcifications. Stomach and bowel: There is no evidence of colitis/diverticulitis. Appendix: A normal appendix is identified. Intraperitoneal space: Unremarkable. No free air. No significant fluid collection. Vasculature: The aorta demonstrates mild atherosclerotic calcification. Lymph nodes: There is small periaortic lymph nodes. There is a 7 mm left common iliac node and 6 mm right common iliac node, both unchanged. No adenopathy. Urinary bladder: Findings of cystoprostatectomy and neobladder creation with ureteral reimplantation, apparently with ileal conduits are not significantly changed. Again noted is some focal thickening of the distal right ureter not significantly changed. Reproductive: Unremarkable as visualized. Bones/joints: No bone lesion is identified. Soft tissues: Unremarkable. CT/CT chest abd pel w con* IMPRESSION: 1. Thickening of the esophagus suggesting possible esophagitis. 2. No evidence of metastatic disease in the chest IMPRESSION: 1. Stable postoperative findings including thickening of the distal right ureter. 2. No evidence of metastatic disease in the abdomen or pelvis.
[2022-02-12 14:48] LABS: Blood Urea Nitrogen 16 mg/dL (8-23); Glomerular Filtration Rate 43.9 mL/min (90-130)
[2022-02-12] MEDS: barium sulfate 450 mL Oral Susp PO (15:06)
[2022-02-12] MEDS: iodixanol 320 mg/mL 100mL Btl IV (15:34)
[2022-02-16 14:24] LABS: Basophils % 0.6 %; Eosinophils # 0.1 10^3/uL (0.0-0.8); Eosinophils % 2.4 %; Hematocrit 39.4 % (42.0-52.0); Hemoglobin 13.6 g/dL (11.7-16.6); Lymphocytes # 1.3 10^3/uL (0.8-4.8); Lymphocytes % 25.7 %; Mean Corpuscular HGB Conc 34.5 g/dL (30.0-36.0); Mean Corpuscular Hemoglobin 31.5 pg (28.0-34.0); Mean Corpuscular Volume 91.2 fl (80-94); Mean Platelet Volume 9.2 fL (7.4-10.4); Monocytes # 0.4 10^3/uL (0.2-0.9); Monocytes % 7.3 %; Neutrophils # 3.12 10^3/uL (1.8-7.7); Neutrophils % 63.8 %; Nucleated Red Blood Cells % 0 %; Platelet Count 260 10^3/cmm (130-400); Red Blood Count 4.32 10^6/uL (4.1-5.3); Red Cell Distribution Width 13.4 % (12.1-15.1); White Blood Count 4.9 10^3/uL (4.0-10.0)
[2022-02-16 14:54] LABS: Alanine Aminotransferase 23 U/L (0-41); Albumin Level 4.6 g/dL (3.5-5.2); Alkaline Phosphatase 80 IU/L (40-130); Aspartate Amino Transferase 19 U/L (0-40); Blood Urea Nitrogen 14 mg/dL (8-23); Calcium 8.4 mg/dL (8.5-10.5); Carbon Dioxide 21 mmol/L (22-29); Chloride 103 mmol/L (98-107); Globulin 2.3 g/dL (1.3-4.6); Glomerular Filtration Rate 55.8 mL/min (90-130); Glucose 132 mg/dL (65-115); Osmolality Calculated 286 mOsm/kg (285-295); Sodium 137 mmol/L (136-145); Total Bilirubin 1.5 mg/dL (0.15-1.2); Total Protein 6.9 g/dL (6.6-8.7)
[2022-02-16 14:58] LABS: Anion Gap 16.6 (5-19); Potassium 3.6 mmol/L (3.5-5.1)
== END 2022-03-02 23:59 | disposition home or self-care (01) ==
PROVIDERS: PCP Family Medicine; Visit Provider Internal Medicine Medical Oncology
DX: Z53.9 Procedure and treatment not carried out, unspecified reason (principal)
CPT/HCPCS: 36415; 71260; 74177; 80053; 82565; 84520; 85025

== ENCOUNTER → 2022-03-09 07:40 | Outpatient (BNVA) | payer BC, SELFPAY | PROVIDERS: PCP Family Medicine; Visit Provider Urology | DX: R33.9 Retention of urine, unspecified (principal); C67.8 Malignant neoplasm of overlapping sites of bladder; Z96.0 Presence of urogenital implants; N52.32 Erectile dysfunction following radical cystectomy | CPT/HCPCS: 81003 ==

== ENCOUNTER 2022-05-27 13:50 | Oncology outpatient (recurring) (ONCR) | payer BC, SELFPAY ==
--- NOTE | 2022-05-27 14:47 | CT_ITS ---
WS: [id number] CT ABDOMEN AND PELVIS WITH CONTRAST HISTORY: Bladder cancer, surveillance. TECHNIQUE: Imaging performed of the abdomen and pelvis with IV contrast. Single phase imaging of the abdomen. Coronal and sagittal reformats are submitted. All CT scans at [facility] use at [facility] st one of these dose optimization techniques: automated exposure control; mA and/or kV adjustment per patient size (includes targeted exams where dose is matched to clinical indication); or iterative re construction. IV CONTRAST: Visipaque 320; 95 mL IV. Oral contrast: No DLP: 1079.33 mGy.cm COMPARISON: 02/12/2022 and 10/19/2021 Lower thorax: Lung bases are clear. Heart is normal size. Mild circumferential thickening of the dist al esophagus. Similar to the prior exam. Liver/biliary system: Normal size liver. No bile duct dilatation. Surface of the liver is very slight ly nodular. Cyst in the lateral lobe measures 1.2 cm and is stable. Normal portal vein. Gallbladder: Normal. No gallstones or wall thickening. No pericholecystic fluid. Pancreas: Normal size pancreas and pancreatic duct. No adjacent inflammation. Spleen: Normal size spleen. No mass or infarct. Adrenal glands: Normal. Right kidney: Normal. Left kidney: Normal. Aorta: Mild atherosclerosis with no aneurysm. Lymphadenopathy: None. Free fluid: None. GI tract: Nondistended stomach. No small bowel obstruction. Abdominal wall: Postsurgical changes from prior cystoprostatectomy. Pelvis: Patient is status post cystoprostatectomy and neobladder formation. RIGHT ureteral reimplanta tion. Configuration of the neobladder is similar to the prior examination. There is no hydronephrosis . There is no interval change in appearance of the RIGHT ureteral implantation. No mass within the ne obladder. No adjacent adenopathy. Postsurgical changes are noted along the anterior abdominal wall. Bones: Unremarkable. CT/CT abdomen pelvis w con* [id number] IMPRESSION: 1. Status post cystoprostatectomy and neobladder formation with RIGHT ureteral reimplantation. Postsurgical changes are similar to prior examinations. 2. No adenopathy or ascites. 3. No RIGHT renal obstruction. 4. Mild circumferential distal esophagus is unchanged over several prior exami nations.
[2022-05-27 15:04] LABS: Basophils % 0.8 %; Eosinophils # 0.1 10^3/uL (0.0-0.8); Eosinophils % 2.8 %; Hematocrit 38.8 % (42.0-52.0); Hemoglobin 13.5 g/dL (11.7-16.6); Lymphocytes # 1.3 10^3/uL (0.8-4.8); Mean Corpuscular HGB Conc 34.8 g/dL (30.0-36.0); Mean Corpuscular Hemoglobin 31.5 pg (28.0-34.0); Mean Corpuscular Volume 90.7 fl (80-94); Monocytes # 0.4 10^3/uL (0.2-0.9); Monocytes % 8.9 %; Neutrophils # 3.01 10^3/uL (1.8-7.7); Neutrophils % 61.3 %; Nucleated Red Blood Cells % 0 %; Platelet Count 216 10^3/cmm (130-400); Red Blood Count 4.28 10^6/uL (4.1-5.3); Red Cell Distribution Width 13.4 % (12.1-15.1); White Blood Count 4.9 10^3/uL (4.0-10.0)
[2022-05-27 15:28] LABS: Alanine Aminotransferase 28 U/L (0-41); Albumin Level 4.4 g/dL (3.5-5.2); Alkaline Phosphatase 72 U/L (40-130); Anion Gap 12.9 (5-19); Aspartate Amino Transferase 19 U/L (0-40); Blood Urea Nitrogen 13 mg/dL (8-23); Carbon Dioxide 27 mmol/L (22-29); Chloride 102 mmol/L (98-107); Globulin 2.5 g/dL (1.3-4.6); Glomerular Filtration Rate 55.8 mL/min (90-130); Glucose 121 mg/dL (65-115); Osmolality Calculated 287 mOsm/kg (285-295); Potassium 3.9 mmol/L (3.5-5.1); Sodium 138 mmol/L (136-145); Total Bilirubin 1.4 mg/dL (0.15-1.2); Total Protein 6.9 g/dL (6.6-8.7)
[2022-05-27] MEDS: iodixanol 320 mg/mL 100mL Btl IV (16:17)
--- NOTE | 2022-05-28 11:08 | PC.NURSE ---
Per Dr. Figueroa, called pt to notify CT scans show no sign of cancer recurrence and blood tests were good. -JW
== END 2022-06-02 23:59 | disposition home or self-care (01) ==
LOC: RAD 13:51 → ONCMED 15:22
PROVIDERS: Nurse Practitioner Family; PCP Family Medicine; Visit Provider Internal Medicine Medical Oncology
DX: C67.8 Malignant neoplasm of overlapping sites of bladder (principal)
CPT/HCPCS: 36415; 74177; 80053; 85025; Q9967

== ENCOUNTER 2022-09-14 07:18 | Outpatient (CLI) | payer BC, SELFPAY ==
--- NOTE | 2022-09-14 07:52 | XRR_ITS ---
PROCEDURE INFORMATION: Exam: XR Chest Exam date and time: 09/14/2022 7:53 AM Age: 62 years old Clinical indication: Condition or disease; Other: Bladder cancer; Prior surgery; Surgery type: Port; Additional info: Bladder cancer, cxr @ 7 am 09/14/22 appt to follow TECHNIQUE: Imaging protocol: Radiologic exam of the chest. Views: 2 views. COMPARISON: CT chest abd pel w con* 02/12/2022 3:25 PM FINDINGS: Lungs: Unremarkable. No consolidation. Pleural spaces: Unremarkable. No pleural effusion. No pneumothorax. Heart/Mediastinum: Unremarkable. No cardiomegaly. Bones/joints: Unremarkable. XR/XR chest 3V [id number] IMPRESSION: No significant abnormality.
== END 2022-09-14 07:19 | disposition home or self-care (01) ==
LOC: RAD 07:20
PROVIDERS: PCP Family Medicine; Visit Provider Urology
DX: C67.9 Malignant neoplasm of bladder, unspecified (principal)
CPT/HCPCS: 71046; 71047

== ENCOUNTER 2022-12-02 07:24 | Outpatient (CLI) | payer BC, SELFPAY ==
[2022-12-02] MEDS: iohexol 350 mg/mL 500 mL Btl (per mL) IV (07:49)
[2022-12-02] MEDS: iohexol 350 mg/mL 500 mL Btl (per mL) PO (07:50)
--- NOTE | 2022-12-02 08:30 | CT_ITS ---
WS: [id number] CT ABDOMEN AND PELVIS WITH CONTRAST HISTORY: History of bladder cancer. TECHNIQUE: Imaging performed of the abdomen and pelvis with IV contrast. Single phase imaging of the abdomen. Coronal and sagittal reformats are submitted. All CT scans at [facility] use at [address] [facility] one of these dose optimization techniques: automated exposure control; mA and/or kV adjustment per patient size (includes targeted exams where dose is matched to clinical indication); or iterative re construction. IV CONTRAST: Omnipaque 350; 100 mL IV. Oral contrast: Yes. DLP: 607.13 mGy.cm COMPARISON: 02/12/2022 and 05/27/2020 Lower thorax: Lung bases are clear. Heart is normal size. Small hiatal hernia. Liver/biliary system: Normal size liver. LEFT hepatic cyst measures 12 mm. Normal portal vein. Gallbladder: Contracted. Pancreas: Normal size pancreas and pancreatic duct. No adjacent inflammation. Spleen: Normal size spleen. No mass or infarct. Adrenal glands: Normal. Right kidney: Normal size RIGHT kidney. There is very minimal dilatation of the RIGHT renal pelvis an d RIGHT ureter. This is a new finding compared to the prior study. There is a focal dilatation of the distal ureter with a post dilatation narrowing of the ureter near the implantation. Left kidney: Normal. Aorta: Mild atherosclerosis with no aneurysm. Lymphadenopathy: None. Free fluid: None. GI tract: Unremarkable. Abdominal wall: Fluid reservoir lower abdominal wall musculature from a penile implant. Pelvis: Neobladder is noted within the pelvis. Patient is status post cystoprostatectomy with neoblad jac formation. Reimplantation of the RIGHT ureter. No abnormal enhancement. Bones: Unremarkable. CT/CT abdomen pelvis w con* [id number] IMPRESSION: 1. New mild RIGHT hydroureteronephrosis. Focal dilatation of the distal RIGHT ureter with postdilatation stenosis. Favor benign distal ureteral stricture jus t proximal to the ureteral implantation site. 2. Cystoprostatectomy and neobladder formation are otherwise negative. 3. New penile implant. 4. Small hiatal hernia. Reviewed with Ben Figueroa MD at 12/02/2022 2:05 PM.
== END 2022-12-02 07:25 | disposition home or self-care (01) ==
LOC: RAD 07:28
PROVIDERS: PCP Family Medicine; Visit Provider Internal Medicine Medical Oncology
DX: C67.9 Malignant neoplasm of bladder, unspecified (principal); N13.30 Unspecified hydronephrosis; K44.9 Diaphragmatic hernia without obstruction or gangrene; Z96.0 Presence of urogenital implants
CPT/HCPCS: 74177; Q9967

== ENCOUNTER 2022-12-30 12:34 | Outpatient (CLI) | payer BC, SELFPAY ==
[2022-12-30 13:42] LABS: Anion Gap 15.1 (5-19); Blood Urea Nitrogen 18 mg/dL (8-23); Calcium 9.2 mg/dL (8.5-10.5); Carbon Dioxide 24 mmol/L (22-29); Chloride 100 mmol/L (98-107); Glomerular Filtration Rate 33.8 mL/min (90-130); Glucose 121 mg/dL (65-115); Osmolality Calculated 283 mOsm/kg (285-295); Potassium 4.1 mmol/L (3.5-5.1); Sodium 135 mmol/L (136-145)
== END 2022-12-30 12:35 | disposition home or self-care (01) ==
PROVIDERS: PCP Family Medicine; Visit Provider Internal Medicine Medical Oncology
DX: C67.8 Malignant neoplasm of overlapping sites of bladder (principal)
CPT/HCPCS: 36415; 80048

== ENCOUNTER 2022-12-30 13:12 | Oncology outpatient (recurring) (ONCR) | payer BC, SELFPAY ==
[2022-12-02 09:16] LABS: Basophils % 0.6 %; Eosinophils # 0.1 10^3/uL (0.0-0.8); Hemoglobin 12.8 g/dL (11.7-16.6); Lymphocytes % 15.7 %; Mean Corpuscular HGB Conc 33.7 g/dL (30.0-36.0); Mean Corpuscular Hemoglobin 31.4 pg (28.0-34.0); Mean Corpuscular Volume 93.4 fl (80-94); Mean Platelet Volume 9.1 fL (7.4-10.4); Monocytes % 15.8 %; Neutrophils # 4.22 10^3/uL (1.8-7.7); Neutrophils % 65.6 %; Nucleated Red Blood Cells % 0 %; Platelet Count 220 10^3/cmm (130-400); Red Blood Count 4.07 10^6/uL (4.1-5.3); Red Cell Distribution Width 13.2 % (12.1-15.1); White Blood Count 6.4 10^3/uL (4.0-10.0)
[2022-12-02 09:35] LABS: Alanine Aminotransferase 28 U/L (0-41); Albumin Level 4.1 g/dL (3.5-5.2); Alkaline Phosphatase 87 U/L (40-130); Anion Gap 14.4 (5-19); Aspartate Amino Transferase 24 U/L (0-40); Blood Urea Nitrogen 15 mg/dL (8-23); Carbon Dioxide 27 mmol/L (22-29); Chloride 98 mmol/L (98-107); Globulin 2.5 g/dL (1.3-4.6); Glomerular Filtration Rate 38.2 mL/min (90-130); Glucose 85 mg/dL (65-115); Osmolality Calculated 280 mOsm/kg (285-295); Potassium 4.4 mmol/L (3.5-5.1); Sodium 135 mmol/L (136-145); Total Protein 6.6 g/dL (6.6-8.7)
[2022-12-02] MEDS: sodium chloride 0.9% 500 ML 999 ML IV (14:16)
== END 2022-12-31 23:59 | disposition home or self-care (01) ==
PROVIDERS: PCP Family Medicine; Visit Provider Internal Medicine Medical Oncology
DX: Z53.9 Procedure and treatment not carried out, unspecified reason (principal)
CPT/HCPCS: 36415; 80053; 85025; 96360; J7040

== ENCOUNTER 2023-06-07 07:06 | Outpatient (CLI) | payer BC, SELFPAY ==
[2023-06-07] MEDS: iohexol 350 mg/mL 500 mL Btl (per mL) PO (07:44)
--- NOTE | 2023-06-07 08:00 | CT_ITS ---
WS: [id number] CT ABDOMEN PELVIS TECHNIQUE: Contrast-enhanced CT of the abdomen and pelvis with coronal and sagittal reformatted image s. CLINICAL INFORMATION: Surveillance COMPARISON: CT 12/02/2022 DLP: 428.[address] scans at [facility] use at least one of these dose optimization techniques: automated e xposure control; mA and/or kV adjustment per patient size (includes targeted exams where dose is matc hed to clinical indication); or iterative reconstruction. FINDINGS: Prior postoperative changes cystoprostatectomy with neobladder formation. RIGHT ureteral reimplantati on. Normal bilateral renal parenchymal enhancement. No hydronephrosis. Previously described mild RIGH T hydroureter focal dilatation of the distal RIGHT ureter is similar in appearance. There is a new in creased enhancing urothelial tissue within the distal RIGHT ureter extending to the implantation site which is nonspecific. This can be further evaluated with ureteroscopy. Neobladder is otherwise unchanged in appearance. Normal sigmoid colon. Diffuse fatty filtration of th e liver. Normal portal vein and splenic vein. Small esophageal hiatal hernia. Adrenal glands are norm al. Lung bases are well aerated. Normal caliber abdominal aorta. Aortic calcification. Penile prosthe sis with pump reservoir in the LEFT rectus sheath. No abdominal or pelvic lymphadenopathy. Tiny fat-containing LEFT inguinal hernia. IMPRESSION: 1. Prior cystoprostatectomy with neobladder formation. RIGHT ureteral reimplantation. 2. Stable dilatation of the RIGHT distal ureter. No hydronephrosis. 3. Distal to the RIGHT ureteral dilatation there is stricturing with increased intraluminal urotheli al enhancement involving the distal RIGHT ureter extending to the implantation site. This is new from previous. Consider further evaluation with ureteroscopy. Urothelial lesion is not excluded. 4. Neobladder is otherwise unchanged in appearance. 5. No abdominal or pelvic lymphadenopathy. 6. Small esophageal hernia. 7. No other suspicious findings.
[2023-06-07 08:29] LABS: Blood Urea Nitrogen 13 mg/dL (8-23)
[2023-06-07 08:30] LABS: Glomerular Filtration Rate 38.2 mL/min (90-130)
[2023-06-07 08:39] LABS: Basophils # 0.1 10^3/uL (0.0-0.1); Basophils % 1.1 %; Eosinophils # 0.2 10^3/uL (0.0-0.8); Eosinophils % 3.4 %; Hematocrit 41.3 % (37-53); Lymphocytes # 1.5 10^3/uL (0.8-4.8); Lymphocytes % 28.7 %; Mean Corpuscular HGB Conc 33.7 g/dL (30-55); Mean Corpuscular Hemoglobin 30.1 pg (27-33); Mean Corpuscular Volume 89.4 fl (82-101); Mean Platelet Volume 8.9 fL (7.4-10.4); Monocytes # 0.4 10^3/uL (0.2-0.9); Monocytes % 7.9 %; Neutrophils # 3.13 10^3/uL (1.8-7.7); Neutrophils % 58.7 %; Nucleated Red Blood Cells % 0 %; Platelet Count 256 10^3/cmm (157-399); Red Blood Count 4.62 10^6/uL (3.85-5.65); Red Cell Distribution Width 13.8 % (12.1-15.1); White Blood Count 5.33 10^3/uL (3.29-11.43)
[2023-06-07] MEDS: iohexol 350 mg/mL 500 mL Btl (per mL) IV (08:41)
[2023-06-07 09:00] LABS: Alanine Aminotransferase 25 U/L (0-41); Albumin Level 4.6 g/dL (3.5-5.2); Alkaline Phosphatase 91 U/L (40-130); Anion Gap 12.2 (5-19); Aspartate Amino Transferase 20 U/L (0-40); Blood Urea Nitrogen 15 mg/dL (8-23); Calcium 9.5 mg/dL (8.5-10.5); Carbon Dioxide 27 mmol/L (22-29); Chloride 101 mmol/L (98-107); Globulin 2.7 g/dL (1.3-4.6); Glomerular Filtration Rate 43.7 mL/min (90-130); Glucose 104 mg/dL (65-115); Osmolality Calculated 283 mOsm/kg (285-295); Potassium 4.2 mmol/L (3.5-5.1); Sodium 136 mmol/L (136-145); Total Bilirubin 1.2 mg/dL (0.15-1.2); Total Protein 7.3 g/dL (6.6-8.7)
== END 2023-06-07 07:07 | disposition home or self-care (01) ==
PROVIDERS: PCP Family Medicine; Visit Provider Internal Medicine Medical Oncology
DX: C67.8 Malignant neoplasm of overlapping sites of bladder (principal); R93.89 Abnormal findings on diagnostic imaging of other specified body structures; K44.9 Diaphragmatic hernia without obstruction or gangrene
CPT/HCPCS: 74177; 80053; 82565; 84520; 85025; Q9967

== ENCOUNTER → 2023-06-13 11:27 | Outpatient (BNVA) | payer BC, SELFPAY | PROVIDERS: PCP Family Medicine; Visit Provider Family Medicine | DX: E87.1 Hypo-osmolality and hyponatremia (principal); Z13.6 Encounter for screening for cardiovascular disorders; Z12.11 Encounter for screening for malignant neoplasm of colon | CPT/HCPCS: 80048; 80061 ==

== ENCOUNTER 2023-09-02 07:43 | Day surgery (SDC) | payer BC, SELFPAY ==
[2023-09-02 07:53] VITALS: BP 165/102; PULSE 95; RESP 18; TEMP 36.1; O2SAT 96; BMI 27.3
--- NOTE | 2023-09-02 08:01 | P.ANESASSM_ITS ---
Pre-Anesthetic Assessment Height/Weight: Height 1.75 m Weight 83.915 kg Temp Pulse Resp BP Pulse Ox O2 Del Method 97.0 F L 95 18 165/102 96 Room Air 09/02/23 07:53 09/02/23 07:53 09/02/23 07:53 09/02/23 07:53 09/02/23 07:53 09/02/23 07:53 Operation Date: 09/02/23 08:45 Proposed Procedures p [id number] egd [id number] colon G0121 screen colon A risk Z12.11,K21.9(Not Applicable) - Valerio Gonzalez DO s Colonoscopy(Not Applicable) - Valerio Gonzalez DO Familial anesthetic complications: none Was Beta Aly taken within 24 hours: N/A Was Clonidine taken within 24 hours: N/A Last intake: Intake Last Liquid Date 09/01/23 Last Liquid Time 23:45 Last Solid Date 08/31/23 Social No alcohol and No tobacco Exam alert, oriented x 3, clear to auscultation bilaterally and regular rate & rhythm Airway Mallampati: Class II Dentition: full Chronic Renal Insufficiency hx bladder cancer GI Gastroesophageal Reflux Disease Metabolic Hyperlipidemia Anesthetic Plan ASA status: 3 Anesthesia: MAC Risk of > 500 ml blood loss (7ml/kg in children): No Medications/Allergies Home Medications Medication Instructions Recorded Confirmed Last Taken Type coenzyme Q10 200 mg capsule (Co 200 mg PO QAM 11/07/20 09/02/23 09/01/23 History Q-10) [id number]-[id number]-vefwh acid 0.4 1 tab PO QAM 11/07/20 09/02/23 09/01/23 History mg-lycopene 300 mcg-lutein 250 mcg tablet (Centrum Silver) atorvastatin 20 mg tablet 20 mg PO DAILY 08/31/23 09/02/23 09/01/23 History Allergies Allergy/AdvReac Type Severity Reaction Status Date / Time No Known Allergies Allergy Verified 09/02/23 07:52 [facility] Anesthesia Medical History (Updated 07/06/23 @ 14:58 by Valerio Gonzalez DO) Chronic kidney disease GERD (gastroesophageal reflux disease) Hyperlipidemia Hypertension History of diverticulitis Bladder cancer Surgical History Status post radical cystoprostatectomy (04/24/21) Radical cystoprostatectomy with bilateral pelvic lymph node dissection and with creation of neobladder History of cystoscopy (11/14/20) Cystoscopy/TURBT Status post LASIK surgery of both eyes Port-A-Cath in place (11/24/20) removed 06/03/2021 Hx of foot surgery H/O release of tendon Biceps tendon repair on the right Family History Father , at age 64 Cancer Mother , at age 73 Stroke Social History Smoking and tobacco/nicotine status: never used tobacco/nicotine Alcohol intake: current Alcohol intake frequency: holidays/special occasions only Marital status: Current occupational status: employed 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
[2023-09-02] MEDS: sodium chloride 0.9% 1,000 ML 30 ML IV (08:03)
--- NOTE | 2023-09-02 08:54 | P.HP_ITS ---
Providers/Chief Complaint Primary Care Provider: Denzel Coombs DO Chief Complaint: 97125 G0121 History of Present Illness Juan Carlos Cuba is a 63 year old male Review of Systems General: Reports: 10 or more systems reviewed and unremarkable except in HPI and below Medications/Allergies Home Medications Medication Instructions Recorded Confirmed Last Taken Type coenzyme Q10 200 mg capsule (Co 200 mg PO QAM 11/07/20 09/02/23 09/01/23 History Q-10) docfevrv-viu-gfvle acid 0.4 1 tab PO QAM 11/07/20 09/02/23 09/01/23 History mg-lycopene 300 mcg-lutein 250 mcg tablet (Centrum Silver) atorvastatin 20 mg tablet 20 mg PO DAILY 08/31/23 09/02/23 09/01/23 History Allergies Allergy/AdvReac Type Severity Reaction Status Date / Time No Known Allergies Allergy Verified 09/02/23 07:52 PFSH Acute PFSH: Medical History Chronic kidney disease GERD (gastroesophageal reflux disease) Hyperlipidemia Hypertension History of diverticulitis Bladder cancer Surgical History Status post radical cystoprostatectomy (04/24/21) Radical cystoprostatectomy with bilateral pelvic lymph node dissection and with creation of neobladder History of cystoscopy (11/14/20) Cystoscopy/TURBT Status post LASIK surgery of both eyes Port-A-Cath in place (11/24/20) removed 06/03/2021 Hx of foot surgery H/O release of tendon Biceps tendon repair on the right Family History Father , at age 64 Cancer Mother , at age 73 Stroke Social History Smoking and tobacco/nicotine status: never used tobacco/nicotine Alcohol intake: current Alcohol intake frequency: holidays/special occasions only Marital status: Current occupational status: employed 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
[2023-09-02 09:22] VITALS: BP 138/105; PULSE 85; RESP 16; TEMP 36.2; O2SAT 94
[2023-09-02] MEDS: ondansetron 2 mg/ML SDV 2 mL 4 MG IVP (09:36)
[2023-09-02 09:44] VITALS: BP 155/106; PULSE 81; RESP 16; O2SAT 94
--- NOTE | 2023-09-02 09:54 | SUR.PHASEII ---
Upon wakening pt vomited clear yellow fluid. Informed Shiv Edmnud, [employer] was advised to give zofran 4mg IVP, listened to all lung burdick clear upon auscultation.
--- NOTE | 2023-09-02 13:32 | ANE.PACU2 ---
Inpatient post-anesthesia follow up: Airway intact: Yes Vital signs: Temperature 97.1 F Pulse Rate 81 Respiratory Rate 16 Blood Pressure 155/106 Pulse Oximetry 94 Oxygen Delivery Me thod Room Air Oxygen Flow Rate Fraction of Inspir ed Oxygen Hydration adequate: Yes Nausea and vomiting: No Pain level: 1 Mental status: Baseline
== END 2023-09-02 10:08 | disposition home or self-care (01) ==
PROVIDERS: PCP Family Medicine; Visit Provider Surgery
PROC: 0DJ08ZZ Inspection of Upper Intestinal Tract, Via Natural or Artificial Opening Endoscopic (ICD-10-PCS; CPT 43235; principal; 2023-09-02 08:45)
PROC: 0DJD8ZZ Inspection of Lower Intestinal Tract, Via Natural or Artificial Opening Endoscopic (ICD-10-PCS; CPT 45378; 2023-09-02 08:45)
DX: Z12.11 Encounter for screening for malignant neoplasm of colon (principal); K21.00 Gastro-esophageal reflux disease with esophagitis, without bleeding; K44.9 Diaphragmatic hernia without obstruction or gangrene; K29.80 Duodenitis without bleeding; K29.50 Unspecified chronic gastritis without bleeding; I12.9 Hypertensive chronic kidney disease with stage 1 through stage 4 chronic kidney disease, or unspecified chronic kidney disease; N18.9 Chronic kidney disease, unspecified; E78.5 Hyperlipidemia, unspecified; Z85.51 Personal history of malignant neoplasm of bladder
CPT/HCPCS: 43239; 45378; 88305; 88342; 96374; J2405; J2704; J7030

== ENCOUNTER 2023-11-02 11:23 | Outpatient (CLI) | payer BC, SELFPAY ==
--- NOTE | 2023-11-02 12:30 | CT_ITS ---
WS: [id number] CT CHEST, ABDOMEN AND PELVIS WITH CONTRAST HISTORY: bladder ca follow up TECHNIQUE: Contiguous 5 mm axial imaging performed through the chest, abdomen and pelvis with IV cont rast, oral contrast has been provided. Coronal and sagittal reformats chest. Coronal and sagittal ref ormats through the abdomen and pelvis. All CT scans at [facility] use at least one of these d ose optimization techniques: automated exposure control; mA and/or kV adjustment per patient size (in cludes targeted exams where dose is matched to clinical indication); or iterative reconstruction. CONTRAST: Omnipaque 350; 100 mL IV. DLP: 951.13 mGy.cm COMPARISON: 06/07/2023 and 02/12/[address]: Lungs are clear. No pneumonia, nodule or mass. Heart is normal size. Normal thoracic aorta and pulmonary artery. No mediastinal or hilar adenopathy. No axillary adenopathy. Small hiatal hernia . Abdomen CT: Normal size liver. Reidentified is a well-circumscribed cyst lateral segment LEFT lobe me asuring 1.1 cm. Normal portal vein. Gallbladder is slightly contracted. No adjacent inflammation. Nor mal size spleen. Normal pancreas. Normal adrenal glands. There are a few scattered too small to adriana cterize hypodensities lower pole LEFT kidney. Mild cortical thinning of each kidney. No obstruction o r mass. Normally distended stomach. No small bowel obstruction. No colon obstruction. Normal appendix. No asc ites or mesenteric implants. Pelvic CT: Penile implant prosthesis with reservoir is noted in the LEFT lateral rectus abdominal she ath. Mildly misshapened urinary bladder but similar to the prior studies consistent with history of c ystoprostatectomy with neobladder formation. Previously described soft tissue enhancement at the dist al RIGHT ureteral implantation site is reidentified without enhancement on today's exam. No obstructi on of the ureter. No free fluid. No osteoblastic or osteolytic bone disease. IMPRESSION: 1. No pulmonary mass or nodule. 2. No adenopathy within the chest, abdomen or pelvis. 3. Status post cystoprostatectomy with neobladder formation. No residual increased enhancement at th e RIGHT ureteral insertion site. No renal obstruction. 4. No ascites.
[2023-11-02 12:47] LABS: Blood Urea Nitrogen 14 mg/dL (8-23); Glomerular Filtration Rate 50.9 mL/min (90-130)
== END 2023-11-02 11:24 | disposition home or self-care (01) ==
LOC: RAD 11:23
PROVIDERS: PCP Family Medicine; Visit Provider Internal Medicine Medical Oncology
DX: C67.9 Malignant neoplasm of bladder, unspecified (principal); Z90.6 Acquired absence of other parts of urinary tract; Z90.79 Acquired absence of other genital organ(s)
CPT/HCPCS: 71260; 74177; 82565; 84520

== ENCOUNTER 2024-05-10 09:55 | Outpatient (CLI) | payer BC, SELFPAY ==
[2024-05-10 10:19] LABS: Basophils # 0.1 10^3/uL (0.0-0.1); Eosinophils # 0.2 10^3/uL (0.0-0.8); Eosinophils % 2.5 %; Hematocrit 45.1 % (37-53); Lymphocytes # 1.6 10^3/uL (0.8-4.8); Lymphocytes % 26.1 %; Mean Corpuscular HGB Conc 34.8 g/dL (30-55); Mean Corpuscular Hemoglobin 30.9 pg (27-33); Mean Corpuscular Volume 88.8 fl (82-101); Monocytes # 0.5 10^3/uL (0.2-0.9); Monocytes % 8.4 %; Neutrophils # 3.69 10^3/uL (1.8-7.7); Neutrophils % 61.8 %; Nucleated Red Blood Cells % 0 %; Platelet Count 259 10^3/cmm (157-399); Red Blood Count 5.08 10^6/uL (3.85-5.65); Red Cell Distribution Width 13.2 % (12.1-15.1); White Blood Count 5.97 10^3/uL (3.29-11.43)
[2024-05-10 10:38] LABS: Calcium 9.9 mg/dL (8.5-10.5)
[2024-05-10 10:41] LABS: Albumin Level 4.7 g/dL (3.5-5.2); Blood Urea Nitrogen 14 mg/dL (8-23); Calcium 9.6 mg/dL (8.5-10.5); Carbon Dioxide 28 mmol/L (22-29); Chloride 100 mmol/L (98-107); Glomerular Filtration Rate 38.1 mL/min (90-130); Glucose 83 mg/dL (65-115); Phosphorus 3.7 mg/dL (2.5-4.5); Sodium 139 mmol/L (136-145)
[2024-05-10 10:45] LABS: Creatinine Urine, Random 161 mg/dL (39-259); Microalbum Creatinine Ratio Ur 31 mg/dL (0-20); Microalbumin Random Urine 5 ug/dL (0-20)
[2024-05-10 10:45] LABS: Parathyroid Hormone 36.1 pg/mL (15-65)
[2024-05-10 10:56] LABS: 25 Hydroxy Vitamin D 46 ng/mL (30-100)
== END 2024-05-10 09:56 | disposition home or self-care (01) ==
LOC: LAB 09:56
PROVIDERS: PCP Family Medicine; Visit Provider Internal Medicine Nephrology
DX: N18.32 Chronic kidney disease, stage 3b (principal)
CPT/HCPCS: 36415; 80069; 82044; 82306; 82310; 83970; 85025

== ENCOUNTER 2024-06-26 08:00 | Outpatient (CLI) | payer BC, SELFPAY ==
[2024-06-26 08:40] LABS: Albumin Level 4.1 g/dL (3.5-5.2); Alkaline Phosphatase 78 U/L (40-130); Anion Gap 14.7 (5-19); Aspartate Amino Transferase 17 U/L (0-40); Blood Urea Nitrogen 12 mg/dL (8-23); Calcium 9.2 mg/dL (8.5-10.5); Carbon Dioxide 27 mmol/L (22-29); Chloride 100 mmol/L (98-107); Globulin 2.5 g/dL (1.3-4.6); Glomerular Filtration Rate 43.5 mL/min (90-130); Glucose 112 mg/dL (65-115); Osmolality Calculated 287 mOsm/kg (285-295); Potassium 3.7 mmol/L (3.5-5.1); Sodium 138 mmol/L (136-145); Total Bilirubin 1.2 mg/dL (0.15-1.2); Total Protein 6.6 g/dL (6.6-8.7)
[2024-06-26 09:03] LABS: Alanine Aminotransferase 21 U/L (0-41)
== END 2024-06-26 08:01 | disposition home or self-care (01) ==
LOC: LAB 08:01
PROVIDERS: PCP Family Medicine; Visit Provider Registered Nurse
DX: N18.32 Chronic kidney disease, stage 3b (principal)
CPT/HCPCS: 36415; 80053

== ENCOUNTER 2024-10-17 14:02 | Outpatient (CLI) | payer BC, SELFPAY ==
[2024-10-17 15:12] LABS: Chol HDL Ratio 4.78 mg/dL (1.0-5.00); Cholesterol 196 mg/dL (0-200); HDL Cholesterol 41 mg/dL (60-100); LDL Cholesterol Calculated 104 mg/dL (50-129); Triglycerides 254 mg/dL (0-150); VLDL Cholestrol Calculation 51 mg/dL (0-30)
[2024-10-18 05:29] LABS: Albumin 4.7 g/dL (3.6-5.1)
[2024-10-18 06:14] LABS: Sex Hormone Binding Globulin 30 nmol/L (22-77); Testosterone Bioavailable 122.6 ng/dL (110.0-575.0); Testosterone Free 57.2 pg/mL (46.0-224.0); Testosterone Total Males IA 409 ng/dL (250-827)
== END 2024-10-17 14:03 | disposition home or self-care (01) ==
LOC: LAB 14:05
PROVIDERS: PCP Family Medicine; Visit Provider Family Medicine
DX: E78.5 Hyperlipidemia, unspecified (principal); R79.89 Other specified abnormal findings of blood chemistry
CPT/HCPCS: 36415; 80061; 82040; 84270; 84403

== ENCOUNTER 2024-11-30 10:29 | Outpatient (CLI) | payer BC, SELFPAY ==
[2024-11-30 11:04] LABS: Basophils % 0.7 %; Eosinophils # 0.1 10^3/uL (0.0-0.8); Eosinophils % 2.1 %; Hematocrit 42.4 % (37-53); Lymphocytes # 1.4 10^3/uL (0.8-4.8); Mean Corpuscular HGB Conc 34.4 g/dL (30-55); Mean Corpuscular Hemoglobin 30.2 pg (27-33); Mean Corpuscular Volume 87.8 fl (82-101); Mean Platelet Volume 8.9 fL (7.4-10.4); Monocytes # 0.4 10^3/uL (0.2-0.9); Monocytes % 7.3 %; Neutrophils % 63.5 %; Nucleated Red Blood Cells % 0 %; Platelet Count 312 10^3/cmm (157-399); Red Blood Count 4.83 10^6/uL (3.85-5.65); White Blood Count 5.35 10^3/uL (3.29-11.43)
[2024-11-30 11:25] LABS: Albumin Level 4.3 g/dL (3.5-5.2); Anion Gap 13.8 (5-19); Blood Urea Nitrogen 17 mg/dL (8-23); Calcium 8.8 mg/dL (8.5-10.5); Carbon Dioxide 27 mmol/L (22-29); Chloride 100 mmol/L (98-107); Glomerular Filtration Rate 43.5 mL/min (90-130); Glucose 119 mg/dL (65-115); Phosphorus 2.6 mg/dL (2.5-4.5); Potassium 3.8 mmol/L (3.5-5.1); Sodium 137 mmol/L (136-145)
[2024-11-30 11:27] LABS: Calcium 9.2 mg/dL (8.5-10.5)
[2024-11-30 11:32] LABS: Creatinine Urine, Random 184 mg/dL (39-259); Microalbum Creatinine Ratio Ur 114 mg/dL (0-20); Microalbumin Random Urine 21 ug/dL (0-20)
[2024-11-30 11:34] LABS: Parathyroid Hormone 47.7 pg/mL (15-65)
[2024-11-30 11:42] LABS: 25 Hydroxy Vitamin D 35 ng/mL (30-100)
== END 2024-11-30 10:30 | disposition home or self-care (01) ==
LOC: LAB 10:32
PROVIDERS: PCP Family Medicine; Visit Provider Internal Medicine Nephrology
DX: N18.32 Chronic kidney disease, stage 3b (principal)
CPT/HCPCS: 36415; 80069; 82044; 82306; 82310; 83970; 85025

== ENCOUNTER → 2025-02-15 07:48 | Outpatient (BNVA) | payer BC, SELFPAY | PROVIDERS: PCP Family Medicine; Visit Provider Family Medicine | DX: Z00.00 Encounter for general adult medical examination without abnormal findings (principal); Z13.6 Encounter for screening for cardiovascular disorders; I10 Essential (primary) hypertension; E78.5 Hyperlipidemia, unspecified; C67.8 Malignant neoplasm of overlapping sites of bladder; N18.9 Chronic kidney disease, unspecified; E03.9 Hypothyroidism, unspecified; R79.89 Other specified abnormal findings of blood chemistry | CPT/HCPCS: 80053; 80061; 82040; 82172; 82306; 82607; 83036; 83695; 84270; 84403; 84443; 85025 ==

== ENCOUNTER 2025-06-21 07:49 | Outpatient (CLI) | payer BC, SELFPAY ==
[2025-06-21 08:24] LABS: Hematocrit 44.3 % (37-53); Hemoglobin 15.40 g/dL (11.27-16.99); Mean Corpuscular HGB Conc 34.8 g/dL (30-55); Mean Corpuscular Hemoglobin 30.4 pg (27-33); Mean Corpuscular Volume 87.4 fl (82-101); Nucleated Red Blood Cells % 0 %; Platelet Count 284 10^3/cmm (157-399); Red Blood Count 5.07 10^6/uL (3.85-5.65); White Blood Count 5.76 10^3/uL (3.29-11.43)
[2025-06-21 08:39] LABS: Albumin Level 4.5 g/dL (3.5-5.2); Anion Gap 15.2 (5-19); Blood Urea Nitrogen 18 mg/dL (8-23); Calcium 9.8 mg/dL (8.5-10.5); Carbon Dioxide 28 mmol/L (22-29); Chloride 100 mmol/L (98-107); Glucose 106 mg/dL (65-115); Potassium 4.2 mmol/L (3.5-5.1); Sodium 139 mmol/L (136-145)
[2025-06-21 08:52] LABS: Creatinine Urine, Random 191 mg/dL (39-259)
[2025-06-21 09:14] LABS: Microalbum Creatinine Ratio Ur 236 mg/dL (0-20)
== END 2025-06-21 07:50 | disposition home or self-care (01) ==
PROVIDERS: PCP Family Medicine; Visit Provider Internal Medicine Nephrology
DX: N18.32 Chronic kidney disease, stage 3b (principal)
CPT/HCPCS: 80069; 82044; 85025

== ENCOUNTER → 2025-07-29 10:27 | Outpatient (BNVA) | payer BC, SELFPAY | PROVIDERS: PCP Family Medicine; Visit Provider Family Medicine | DX: I12.9 Hypertensive chronic kidney disease with stage 1 through stage 4 chronic kidney disease, or unspecified chronic kidney disease (principal); N18.9 Chronic kidney disease, unspecified; E78.5 Hyperlipidemia, unspecified; D64.89 Other specified anemias; R79.89 Other specified abnormal findings of blood chemistry | CPT/HCPCS: 80053; 80061; 82040; 82172; 84270; 84403; 85025 ==